=== PATIENT | female | born 1955 | race Caucasian/White ===

== ENCOUNTER 2025-02-02 06:41 | Inpatient (IN) | payer MEDICARE, OTHER, SELFPAY ==
[2025-02-01] VITALS (7 sets, daily range): BP systolic 111–156; BP diastolic 60–76; BMI 20.2; BMI 20.4
[2025-02-01 17:41] LABS: Hematocrit 35.7 % (37.0-47.0); Hemoglobin 11.4 g/dL (12.0-16.0); Mean Corp Hgb Conc. 31.9 g/dL (33.0-37.0); Mean Corpuscular Volume 92.2 fL (81.0-99.0); Nucleated Red Blood Cells % 0 %; Platelet Count 254 10^3/uL (130-400); Red Cell Dist. Width 14.0 % (11.5-14.5)
--- NOTE | 2025-02-01 17:52 | ED.GENMED ---
History of Present Illness
General
Chief Complaint: Urinary Symptoms
Source: patient and family
Exam Limitations: none
Time Seen by Provider: 02/01/25 17:17
Nursing documentation reviewed up to this point in time: agreed with
History of Present Illness
History of Present Illness:
Patient is a 7-year-old female with history of Alzheimer's Parkinson's bladder cancer, ataxia brought to the ER by son and family for evaluation. History obtained by son. Son reports patient has been complaining of burning with urination since
last night and today notices increasing confusion and weakness. Patient presents awake alert she is aware that she is in the hospital and does have a history of UTI. She denies any pain now.
Son reports she last had a UTI at the end of December but at that time was living on her own.
Past History
Social History
Living: with family
Employment: Employed
Phy Exam
General Physical Exam
General Presentation: no apparent distress
General age: appears stated age
General Skin: warm and dry
General Habitus: elderly
General Mental: alert
General Hydration: appears well hydrated
Cardiovascular Exam
Cardiovascular Exam: regular rate/rhythm, no murmur and normal peripheral pulses
Pulmonary Exam
Pulmonary Exam: lungs clear and no respiratory distress
Neurological Exam
Neurological Exam: alert and oriented x3
Musculoskeletal Exam
Musculoskeletal Exam: full ROM
Skin Exam
Skin Exam: normal color and warm/dry
Course
Orders/Labs/Results
Orders:
Orders
02/01/25 17:29
IV Insert/Care/Rem.- Treatment PRN
02/01/25 17:30
Complete Blood Count/With Diff Urgent
Comprehensive Metabolic Panel Urgent
02/01/25 17:51
Straight cath- Treatment ONCE
02/01/25 18:31
UA Reflex to Culture [Urinalysis Reflex To Culture] Urgent
Date Specimen was Collected: 02/01/25
Time Specimen was Collected: 17:59
Urine Microscopic Reflex Cult Urgent
Urine Culture Urgent
FRANKLYN Source: U
Specimen Description:
Date Specimen was Collected: 02/01/25
Time Specimen was Collected: 17:59
02/01/25 18:52
0.9% Sodium Chloride 1000 ml [Nss] 1,000 ml IV BOLUS
CefTRIAXone [Rocephin] 1,000 mg IV NOW STA
02/01/25 19:49
Admit/Transfer Patient As Directed
Co-Sign Provider:
Level of Care: Observation services
Assign to:: Medical/Surgical
Physician / Group: [facility]
Diagnosis: UTI, Weakness
PRN Pain Medication Management As Directed
May give lesser potent ordered pain med per pt: Yes
preference::
Protocol:: Medication orders for pain may be administered in a
manner that supports deferring to patient preference
when the pt is:
- Requesting an ordered lesser potent pain medication.
Least to most potent pain medications are defined
as: acetaminophen < NSAID < tramadol < opioids
(morphine, oxycodone, hydromorphone).
- Requesting a lesser dose of the same medication IF
ORDERED.
- Requesting a less intrusive route of administration
if both routes are prescribed by the provider (PO <
IV).
02/01/25 19:50
Code Status As Directed
Resuscitation Status: Full Code
Abnormal Lab Results
02/01/25 02/01/25
17:30 18:31
RBC 3.87 L 10^6/uL
(4.20-5.40)
Hgb 11.4 L g/dL
(12.0-16.0)
Hct 35.7 L %
(37.0-47.0)
MCHC 31.9 L g/dL
(33.0-37.0)
BUN 25 H mg/dl
(7-17)
Glucose 186 H mg/dl
(70-99)
Urine Ketones 1+ A
(Negative)
Ur Occult Blood Reflex 4+ A
(Negative)
Leukocyte Esterase Rfl 3+ A
(Negative)
Urine WBC (Reflex) >100 A /HPF
(0-5)
Urine Bacteria (Reflex) Moderate A
(Negative)
Urine Albumin (Reflex) 3+ A
(Neg - Trace)
02/01/25 17:30
02/01/25 17:30
Vital Signs
Initial and Last Documented VS:
Initial Vital Signs
Temp Pulse Resp BP Pulse Ox
97.4 F 86 18 116/68 98
02/01/25 16:50 02/01/25 16:50 02/01/25 16:50 02/01/25 16:50 02/01/25 16:50
Last Documented Vital Signs
Temp Pulse Resp BP Pulse Ox
97.4 F 61 24 117/65 99
02/01/25 16:50 02/01/25 18:45 02/01/25 18:45 02/01/25 18:00 02/01/25 18:45
MDM/Problems Addressed
Differential Diagnosis Includes:
Not limited to UTI, dehydration, worsening Parkinson's or dementia
MDM/Problems Addressed:
Patient is a 70-year-old female brought by family for UTI symptoms and weakness. She first mentioned dysuria to family last evening. She was very weak this morning. Patient was recently living at her own home but now living with family.
Patient presents awake alert in no acute distress however does have a UTI with greater than 100 white blood cells in urine, she is afebrile with a normal white count stable hemoglobin. She is mildly dry on exam and does have an elevated BUN of 25.
fluids ordered along with iv rocephin.
With UTI in the setting of worsening weakness and increasing confusion (with history of Parkinson's and dementia ) would recommend admission
Chronic conditions affecting care:
Parkinson's, dementia
*Pulse Oximetry
SaO2: 100
Oxygen Mode of Delivery: Room air
Patient hypoxic: no
*Critical Care Note
Total Time (30-74mins, 75-104mins- exclusive of procedures): Not Applicable
ED Attending Note
-
Portions of this chart may have been created with voice recognition software.� Occasional wrong word or��sound alike� substitutions may have occurred due to the inherent limitations of voice recognition software.
Discharge Plan
Departure
Patient Disposition: Admit
Date of Disposition: 02/01/25
Time of Disposition: 18:55
Admit to: Med/Surg
Admit to doctor: hospitalist
Presentation/result/management discussed w/ accepting MD/DO: Hospitalist
Patient with high blood pressure during this ER visit?: No
Condition: Fair
Covid-19: Not Applicable
Discharge Problem:
Acute UTI, Weakness
Prescriptions:
No Action
famotidine 40 mg tablet
40 mg PO DAILY
alendronate 70 mg tablet
70 mg PO ELIZALDE
Theragen Tablet
1 tab PO DAILY
acetaminophen 500 mg Tablet
500 mg PO DAILYPRN PRN (Reason: mild pain)
docusate sodium 100 mg Capsule
100 mg PO DAILYPRN PRN (Reason: constipation)
midodrine 2.5 mg tablet
2.5 mg PO TID
carbidopa-levodopa 25-100 mg tablet
3 tab PO TID
lamotrigine 100 mg tablet
100 mg PO DAILY
cranberry 500 mg Capsule
500 mg PO DAILY
Patient Comments:
patient is going to stop taking this because she thinks it masks the signs of UTI
escitalopram oxalate 5 mg tablet
5 mg PO DAILY
Patient Comments:
patient ran out of this about a week ago and is waiting for a refill from mail order.
Referrals:
Ivone Patel DO [Family Provider, Family Practice]
Interventions
Interventions:
*Risk Screen - Suicide Last Done: 02/01/25 16:57
*General Assessment Last Done: 02/01/25 17:34
*Neglect/Abuse Screening Last Done: 02/01/25 16:57
*ED- Fall Risk Assessment Last Done: 02/01/25 17:34
ED-Female Genitourinary Assessment Last Done: 02/01/25 17:34
Discharge Date and Time
Print Language: SERBIAN
[2025-02-01 17:55] LABS: ALT (SGPT) < 10 U/L (0-35); AST (SGOT) 15 U/L (14-36); Albumin 3.8 g/dl (3.5-5.0); Alkaline Phosphatase 55 U/L (38-126); Blood Urea Nitrogen 25 mg/dl (7-17); Calcium 9.4 mg/dl (8.4-10.2); Carbon Dioxide 28 mmol/L (22-30); Chloride 103 mmol/L (98-107); Estimated Creatinine Clearance 51 ml/min; Glucose 186 mg/dl (70-99); Potassium 3.8 mmol/L (3.5-5.1); Sodium 138 mmol/L (135-145); Total Protein 6.5 g/dl (6.3-8.2); eGFR > 60.00
[2025-02-01 18:40] LABS: Urine Character Cloudy (Clear)
[2025-02-01 18:46] LABS: Urine Red Blood Cell 0-2 /HPF (0-2); Urine Squamous Cell 0-2 /LPF (Few); Urine White Cell >100 /HPF (0-5)
[2025-02-01] MEDS: NSS 1000 IV ×2 (19:05→23:12)
[2025-02-01] MEDS: ROCEPHIN 1000 MG IV (19:05)
--- NOTE | 2025-02-01 19:52 | HPS.HSE ---
Family Physician
-
Family Physician: Ivone Patel
Chief Complaint
-
Weakness, Dysuria
History of Present Illness
Patient is a 70y F with PMH significant for Parkinson's disease who presents to ED complaining of dysuria and confusion / weakness. History obtained from patient and family at the bedside. Patient reported symptoms of dysuria yesterday evening.
This AM she was very confused and weak and unable to stand or walk unassisted. They initially presented to Urgent Care where urine dip was reportedly positive. They were referred to the ED for evaluation given her weakness and confusion.
Patient reports some lower abdominal / pelvic pressure or discomfort.
No N/V, fevers / chills.
Family states that she has had multiple UTIs over the past 2-3 months.
Medical History
Past Medical History
Past Medical History: Reports Other
Additional Past Medical History:
Parkinson's Disease
Dementia with Mood Disturbance
Bladder Cancer
Osteoporosis
Past Surgical History: Reports Other
Additional Past Surgical History:
TURBT
LASIK
Social History
Tobacco: Former Smoker (Quit smoking about 10 years ago. )
Alcohol: None
Drug: None
Family History
Family History: Not pertinent
Allergies / Home Medications
Allergies reflects when Allergies were last updated in [facility].
Home Medications with original date entered in [facility]
Allergy/Medication List:
Allergies
Allergy/AdvReac Type Severity Reaction Status Date / Time
No Known Allergies Allergy Verified 02/01/25 16:55
Home Medications
acetaminophen 500 mg tablet 500 mg PO DAILYPRN PRN mild pain 02/01/25
alendronate 70 mg tablet 70 mg PO ELIZALDE 02/01/25
carbidopa 25 mg-levodopa 100 mg tablet 3 tab PO TID 02/01/25
cranberry 500 mg capsule 500 mg PO DAILY 02/01/25
docusate sodium 100 mg capsule 100 mg PO DAILYPRN PRN constipation 02/01/25
escitalopram oxalate 5 mg tablet 5 mg PO DAILY 02/01/25
famotidine 40 mg tablet 40 mg PO DAILY 02/01/25
lamotrigine 100 mg tablet 100 mg PO DAILY 02/01/25
midodrine 2.5 mg tablet 2.5 mg PO TID 02/01/25
therapeutic multivitamin 1 tab PO DAILY 02/01/25
Review of Systems
-
History Source: Patient and Family
A 12 point ROS was completed and negative except as noted: Yes
Constitutional: Reports Fatigue; Denies Fever or Chills
Respiratory: Denies Cough or Trouble Breathing
Cardiac: Denies Chest Pain or Palpitations
Abdomen/GI: Reports Abdominal Pain; Denies Nausea, Vomiting or Diarrhea
: Reports Dysuria and Frequency; Denies Flank Pain or Bleeding
Musculoskeletal: Denies Joint Pain or Edema
Neurological: Reports Dizzy and Weakness; Denies Headache
Psych: Denies Depression or Anxiety
Physical Exam
Vital Signs
Vital Signs
Temp Pulse Resp BP Pulse Ox
97.4 F 61 24 117/65 99
02/01/25 16:50 02/01/25 18:45 02/01/25 18:45 02/01/25 18:00 02/01/25 18:45
Physical Exam
General: Other (70y F with slow speech / flat affect. Not in acute distress.)
HEENT: Other (Dry MM. Neck supple.)
Respiratory: Clear; No Wheezes, Rales or Rhonchi
Cardiac: S1/S2 and Regular Rhythm; No Murmur
GI: Soft, Non Distended and Normal Bowel Sounds
Genito-urinary: Other (Mild suprapubic tenderness. No CVAT.)
Musculoskeletal: No Clubbing, No Cyanosis and No Edema
Neuro: AO x 3
Laboratory Results
-
02/01/25 17:30
02/01/25 17:30
Laboratory Results
Total Bilirubin 0.5 mg/dl (0.2-1.3) 02/01/25 17:30
AST 15 U/L (14-36) 02/01/25 17:30
ALT < 10 U/L (0-35) 02/01/25 17:30
Alkaline Phosphatase 55 U/L (38-126) 02/01/25 17:30
Impression/Plan
-
A/P: Patient is a 70y F with PMH significant for Parkinson's disease who presents to ED complaining of dysuria and weakness.
UTI
Acute TME secondary to the above
- Observe overnight for further evaluation and treatment.
- IV ceftriaxone for now pending culture data.
- IVF support.
- Follow for clinical improvement.
- PT / OT evaluations in the AM.
Parkinson's Disease
- Stable. Continue current Sinemet dosing without changes.
- Continue midodrine for orthostatic hypotension.
- PT eval as noted above.
Dementia with Mood Disturbance
- Stable. Continue Lexapro and Lamictal.
Osteoporosis
- Hold Fosamax acutely (usually takes dose on Sundays)
DVT Prophylaxis: SCDs
Code Status: Full
[2025-02-01] MEDS: SINEMET 25-100 3 TABLET PO (23:12)
[2025-02-01] MEDS: VITAMIN C 500 MG PO (23:12)
--- NOTE | 2025-02-01 23:55 | PTCARENOTE ---
patient arrived on stretcher with her son at her side, patient awake and alert. Patient's orientation is good. Transfer from stretcher to bed done and skin check done right away.
[2025-02-02 05:59] LABS: Hematocrit 32.4 % (37.0-47.0); Hemoglobin 10.5 g/dL (12.0-16.0); Mean Corp Hgb Conc. 32.4 g/dL (33.0-37.0); Mean Corpuscular Volume 92.0 fL (81.0-99.0); Platelet Count 221 10^3/uL (130-400); Red Cell Dist. Width 13.9 % (11.5-14.5)
[2025-02-02 06:00] VITALS: BMI 19.9
[2025-02-02 06:24] LABS: Blood Urea Nitrogen 19 mg/dl (7-17); Calcium 8.6 mg/dl (8.4-10.2); Carbon Dioxide 26 mmol/L (22-30); Chloride 110 mmol/L (98-107); Estimated Creatinine Clearance 64 ml/min; Glucose 93 mg/dl (70-99); Potassium 4.0 mmol/L (3.5-5.1); Sodium 140 mmol/L (135-145); eGFR > 60.00
[2025-02-02 07:58] VITALS: BP 140/85
--- NOTE | 2025-02-02 08:56 | W.PN.HOSP.TC ---
Today's Communication/Plan
-
CT of abdomen/ pelvis
Bladder scan
PT/OT
Assessment / Plan
Assessment / Plan
Physical Exam
General: Other (70y F with slow speech / flat affect. Not in acute distress.)
HEENT: Other (no deformities, Neck supple.)
Respiratory: Clear; No Wheezes, Rales or Rhonchi
Cardiac: S1/S2 and Regular Rhythm; No Murmur
GI: Soft, Non Distended and Normal Bowel Sounds
Genito-urinary: No Le. No CVAT.
Musculoskeletal: No Clubbing, No Cyanosis and No Edema
Neuro: AO x 3
Psych: calm, no agitation
Patient is a 70y F with PMH significant for Parkinson's disease who presents to ED complaining of dysuria and weakness.
UTI
Dementia with Mood Disturbance
- Stable. Continue Lexapro and Lamictal.
Acute TME secondary to the above
Rule out underlying primary cognitive impairment/worsening dementia
She is doing better. No agitation. Seems to follow commands appropriately
Discussed with son. Patient was diagnosed with dementia. Primary neurologist Dr. Lovelace, She was treating her for ataxia and Parkinson disease but no specific treatment for dementia.
According to the son, history of staring/seizure. On Lamictal.
Ordered CAT scan of the head that showed progressive atrophy.
Son was concerned about worsening cognitive function and gait dysfunction last a few days. Will order MRI of brain.
Start the patient on aspirin.
# History of urinary tract infection/recurrent
Renal ultrasound is ordered, showing cyst/mass and right adrenal area. Moderate left pelvicalyceal dilation. Normal renal function. Will order a bladder scan
Discussed with patient and her son. Agreed to do a CAT scan with contrast.
Parkinson's Disease
- Stable. Continue current Sinemet dosing without changes.
- Continue midodrine for orthostatic hypotension will add holding parameters,.
- PT eval as noted above.
Osteoporosis
- Hold Fosamax acutely (usually takes dose on Sundays)
DVT Prophylaxis: SCDs
Code Status: Full
Total time spent to see the patient, examine the patient, review lab results and data, discuss treatment plan with patient, son, nursing staff around 55 minutes
Anticipated Discharge: > 48 hours
Subjective/Interval History
-
Date of Service: February 02, 2025
No pain issues
Objective Data
-
Labs:
Laboratory Results
02/02/25
04:14
WBC 5.9
Hgb 10.5 L
Hct 32.4 L
Plt Count 221
Sodium 140
Potassium 4.0
Chloride 110 H
Carbon Dioxide 26
BUN 19 H
Creatinine 0.7
Glucose 93
Calcium 8.6
Vital Signs:
Vital Signs
Temp Pulse Resp BP Pulse Ox
98.1 F 67 17 140/85 98
02/02/25 07:58 02/02/25 07:58 02/02/25 07:58 02/02/25 07:58 02/02/25 07:58
I&O
02/01/25 02/02/25 02/03/25
06:59 06:59 06:59
Intake Total 480 / 480
Balance 480 / 480
[2025-02-02] MEDS: LEXAPRO 5 MG PO (09:41)
[2025-02-02] MEDS: HIPREX 1 GRAM PO (09:41)
[2025-02-02] MEDS: PEPCID 40 MG PO (09:41)
[2025-02-02] MEDS: SINEMET 25-100 3 TABLET PO ×3 (09:42→21:07)
[2025-02-02] MEDS: LAMICTAL 100 MG PO (09:42)
[2025-02-02 11:23] VITALS: BP 123/63; BP 131/89; PULSE 69; O2SAT 96
[2025-02-02 11:24] VITALS: BP 123/63; BP 131/89; PULSE 69; O2SAT 96
[2025-02-02 13:08] VITALS: BP 154/81
[2025-02-02 15:22] VITALS: BP 119/78
[2025-02-02] MEDS: NSS 1000 IV (15:24)
--- NOTE | 2025-02-02 15:35 | CM ---
Spoke w/ patient's son, Vasquez. Initial assessment completed. Patient is a 70y F with PMH significant for Parkinson's disease who presents to ED complaining of dysuria and confusion / weakness.
Patient resides in a newly built in law suite attached to her son's 2 story split level home. Patient's suite is all one floor, 1 step to enter. Patient uses RW to ambulate, per Vasquez, patient is still a fall risk even w/ using the RW. Patient
needs assistance w/ ADLs. No SNF hx, current w/ OP PT at [place] every Monday. Patient has an aide twice a week through [facility]. Vasquez reports he is currently exploring other caregiver agencies that can be more flexible w/ assisting
patient twice a week in the morning preferably but will continue w/ current aide in the meantime.
Address, points of contact and insurance verified
PCP: Ivone Patel
Pharmacy: [facility]
Therapy assessed, rec OP therapy at d/c per son's request
Plan: Anticipate home w/ son, resume OP PT
[2025-02-02] MEDS: STERILE WATER FOR INJECTION 10 ML IV (17:37)
[2025-02-02] MEDS: ROCEPHIN 1000 MG IV (17:37)
--- NOTE | 2025-02-02 17:42 | PTCARENOTE ---
DR Merritt aware pt blood pressures being 140-150 systolic with midodrine ordered. stated to hold and she will put parameters in.
[2025-02-02 23:13] VITALS: BP 166/90
[2025-02-03] MEDS: NSS 1000 IV ×2 (00:43→09:21)
[2025-02-03] MEDS: OMNIPAQUE 50 ML PO (06:00)
[2025-02-03 06:50] VITALS: BMI 18.9
[2025-02-03 07:35] VITALS: BP 165/82
[2025-02-03 08:07] LABS: Hematocrit 38.8 % (37.0-47.0); Hemoglobin 12.8 g/dL (12.0-16.0); Mean Corp Hgb Conc. 33.0 g/dL (33.0-37.0); Mean Corpuscular Volume 91.3 fL (81.0-99.0); Platelet Count 280 10^3/uL (130-400); Red Cell Dist. Width 13.3 % (11.5-14.5)
[2025-02-03 08:36] LABS: Blood Urea Nitrogen 7 mg/dl (7-17); Calcium 9.2 mg/dl (8.4-10.2); Carbon Dioxide 25 mmol/L (22-30); Chloride 108 mmol/L (98-107); Estimated Creatinine Clearance 71 ml/min; Glucose 145 mg/dl (70-99); Potassium 4.2 mmol/L (3.5-5.1); Sodium 141 mmol/L (135-145); eGFR > 60.00
[2025-02-03] MEDS: HIPREX 1 GRAM PO (09:21)
[2025-02-03] MEDS: SINEMET 25-100 3 TABLET PO ×3 (09:21→21:24)
[2025-02-03] MEDS: LEXAPRO 5 MG PO (09:21)
[2025-02-03] MEDS: LAMICTAL 100 MG PO (09:41)
[2025-02-03] MEDS: PEPCID 40 MG PO (09:42)
[2025-02-03 09:57] VITALS: BMI 18.9
--- NOTE | 2025-02-03 14:02 | CM ---
Chart reviewed and plan is for home to son and Erin daughter in law's house when stable, plan is for home care to begin with PT/OT, nursing and aide. Son to hire caregivers in morning to assist patient with all am care. Patient's son would like
physical therapy to review his mother again.
Plan; Home with home care, MRI pending.
[2025-02-03 14:55] VITALS: BP 93/57
--- NOTE | 2025-02-03 15:24 | W.PN.HOSP.TC ---
Today's Communication/Plan
-
Assessment / Plan
Assessment / Plan
Physical Exam
General: No Apparent Distress, Comfortable and Conversant
HEENT: NormoCephalic, Moist mucous membranes, Atraumatic
Respiratory: Clear and Non Labored Respirations
Cardiac: S1/S2 and Regular Rhythm; No Rub or Gallop
GI: Soft, Non Tender, Non Distended and Normal Bowel Sounds
Musculoskeletal: No Edema, no deformity
: NO Le
Neuro: Awake, Alert, confused, nonfocal/grossly intact
Psych: Calm and cooperative
Patient is a 70y F with PMH significant for Parkinson's disease and bladder cancer who presents to ED complaining of dysuria and weakness.
UTI
Dementia with Mood Disturbance
- Stable. Continue Lexapro and Lamictal.
Acute TME secondary to the above, improving
History of urinary tract infection/recurrent
-Renal ultrasound is ordered, showing cyst/mass and right adrenal area. Moderate left pelvicalyceal dilation. Normal renal function.
- CT scan with contrast reveals what appears to be a benign right adrenal adenoma, does show significant cystitis and left hydroureter with possible bladder mass
- Urology consulted for further evaluation especially considering history of bladder cancer
Parkinson's Disease
- Stable. Continue current Sinemet dosing without changes.
- Continue midodrine for orthostatic hypotension will add holding parameters,.
- CT brain shows progressive atrophy, somewhat concerned about gait dysfunction and worsening cognition, continue aspirin, MRI brain pending
- PT eval as noted above.
Osteoporosis
- Hold Fosamax acutely (usually takes dose on Sundays)
DVT Prophylaxis: SCDs
Code Status: Full
Total time spent to see the patient, examine the patient, review lab results and data, discuss treatment plan with patient, son, nursing staff around 45 minutes
Anticipated Discharge: 24 - 48 hours
Subjective/Interval History
-
Date of Service: February 03, 2025
Patient was seen and examined at bedside this morning. She is awake and alert but significantly disoriented. Receiving antibiotics for urinary tract infection.
Objective Data
-
Labs:
Laboratory Results
02/03/25
07:37
WBC 7.1
Hgb 12.8 D
Hct 38.8
Plt Count 280 D
Sodium 141
Potassium 4.2
Chloride 108 H
Carbon Dioxide 25
BUN 7
Creatinine 0.6
Glucose 145 H
Calcium 9.2
Vital Signs:
Vital Signs
Temp Pulse Resp BP Pulse Ox
98.2 F 80 20 93/57 98
02/03/25 14:55 02/03/25 14:55 02/03/25 14:55 02/03/25 14:55 02/03/25 14:56
I&O
02/02/25 02/03/25 02/04/25
06:59 06:59 06:59
Intake Total 480 / 480 600 / 600 480 / 480
Balance 480 / 480 600 / 600 480 / 480
Review of Systems
-
Unable to obtain full review of systems at this time due to: Dementia
Physical Exam
-
General: No Apparent Distress
[2025-02-03] MEDS: ATIVAN 1 MG PO (16:48)
--- NOTE | 2025-02-03 17:00 | W.PN.URO.CBU ---
Today's Communication / Plan
-
npo wed for am
Assessment / Plan
-
left hydro no stones need to rule out uretral cancer vs high grde bladder pressure from parkinson Plan cysto left uretroscopy Plan on to allow healing of uti before instrumentation
Diagnosis
-
Date of Service: February 03, 2025
-
Patient Diagnosis:left hydro in pt with remote h/o bladder cancer none x 8 years and parkinsons
Post Op Day:
Subjective
-
feeling better
Objective
-
Vital Signs
Temp Pulse Resp BP Pulse Ox
98.2 F 80 20 93/57 98
02/03/25 14:55 02/03/25 14:55 02/03/25 14:55 02/03/25 14:55 02/03/25 14:56
Intake and Output
02/02/25 02/03/25 02/04/25
06:59 06:59 06:59
Intake Total 480 / 480 600 / 600 480 / 480
Balance 480 / 480 600 / 600 480 / 480
Intake:
Oral fluids 480 / 480 600 / 600 480 / 480
Other:
How many times incontinent 1
MODERATE amount urine
How many times incontinent 1 5 4
SATURATED amount urine
Laboratory Results
02/03/25 07:37
02/03/25 07:37
Review of Systems
-
: Frequency and Difficulty Voiding
Physical Exam
-
General - well developed, well nourished, no acute distress
Chest - clear bilaterally
Abdomen - soft, non-tender, positive bowel sounds, no CVAT, no incisional pain or distention
Genitalia - normal
Rectal - normal
Skin - warm & dry with no rash
Neuro - AOx3, no motor deficits
Extremities - no clubbing, no cyanosis, no edema
Incision - clean, dry
Dressing - clean, dry, intact
Care Review
Data Reviewed
Discussed with: Hospitalist and Nursing
CT Scan: Image Pers Reviewed
[2025-02-03] MEDS: STERILE WATER FOR INJECTION 10 ML IV (18:04)
[2025-02-03] MEDS: ROCEPHIN 1000 MG IV (18:05)
[2025-02-03 23:49] VITALS: BP 148/82
[2025-02-04 06:00] VITALS: BMI 19.6
[2025-02-04 07:20] VITALS: BP 95/58
--- NOTE | 2025-02-04 08:27 | W.PN.URO.CBU ---
Today's Communication / Plan
-
O ROOM 1 ST CASE MONDAY
Assessment / Plan
-
left hydro no stones need to rule out uretral cancer vs high grde bladder pressure from parkinson Plan cysto left uretroscopy Plan on to allow healing of uti before instrumentation
Diagnosis
-
Date of Service: February 04, 2025
-
Patient Diagnosis:
Post Op Day:
Patient Diagnosis:left hydro in pt with remote h/o bladder cancer none x 8 years and parkinsons
Post Op Day:
Subjective
-
FEELING BETTER NO LEFT COLIC
Objective
-
Vital Signs
Temp Pulse Resp BP Pulse Ox
97.4 F 65 16 148/82 94
02/03/25 23:49 02/03/25 23:49 02/03/25 23:49 02/03/25 23:49 02/03/25 23:49
Intake and Output
02/03/25 02/04/25 02/05/25
06:59 06:59 06:59
Intake Total 600 / 600 720 / 720
Balance 600 / 600 720 / 720
Intake:
Oral fluids 600 / 600 720 / 720
Other:
How many times incontinent 1
MODERATE amount urine
How many times incontinent 5 4
SATURATED amount urine
Laboratory Results
02/03/25 07:37
02/03/25 07:37
Review of Systems
-
: No Symptoms
Physical Exam
-
General - well developed, well nourished, no acute distress
Chest - clear bilaterally
Abdomen - soft, non-tender, positive bowel sounds, no CVAT, no incisional pain or distention
Genitalia - normal
Rectal - normal
Skin - warm & dry with no rash
Neuro - AOx3, no motor deficits
Extremities - no clubbing, no cyanosis, no edema
Incision - clean, dry
Dressing - clean, dry, intact
Care Review
Data Reviewed
Discussed with: Nursing
[2025-02-04] MEDS: HIPREX 1 GRAM PO (09:00)
[2025-02-04] MEDS: LEXAPRO 5 MG PO (09:00)
[2025-02-04] MEDS: SINEMET 25-100 3 TABLET PO ×3 (09:00→21:49)
[2025-02-04] MEDS: PEPCID 40 MG PO (09:05)
[2025-02-04] MEDS: LAMICTAL 100 MG PO (09:05)
[2025-02-04] MEDS: NSS 1000 IV (10:31)
--- NOTE | 2025-02-04 12:40 | CM ---
Chart reviewed and patient is for possible procedure on , will follow for discharge planning needs, will await updated physical therapy notes.
Plan; To follow with patient progress, patient to return to son's home when stable.
[2025-02-04 15:40] VITALS: BP 174/80
--- NOTE | 2025-02-04 16:44 | W.PN.HOSP.TC ---
Today's Communication/Plan
-
Assessment / Plan
Assessment / Plan
Physical Exam
General: No Apparent Distress, Comfortable and Conversant
HEENT: NormoCephalic, Moist mucous membranes, Atraumatic
Respiratory: Clear and Non Labored Respirations
Cardiac: S1/S2 and Regular Rhythm; No Rub or Gallop
GI: Soft, Non Tender, Non Distended and Normal Bowel Sounds
Musculoskeletal: No Edema, no deformity
: NO Le
Neuro: Awake, Alert, confused, nonfocal/grossly intact
Psych: Calm and cooperative
Patient is a 70y F with PMH significant for Parkinson's disease and bladder cancer who presents to ED complaining of dysuria and weakness.
History of urinary tract infection/recurrent
- Renal ultrasound showing cyst/mass and right adrenal area. Moderate left pelvicalyceal dilation. Normal renal function.
- CT scan with contrast reveals what appears to be a benign right adrenal adenoma, does show significant cystitis and left hydroureter with possible bladder mass
- Evaluated by urology considering history of bladder cancer, tentative plan for cystoscopy on 02/06
Dementia with Mood Disturbance
- Stable. Continue Lexapro and Lamictal.
Acute TME secondary to the above, improving
Parkinson's Disease
- Stable. Continue current Sinemet dosing without changes.
- Continue midodrine for orthostatic hypotension will add holding parameters,.
- CT brain shows progressive atrophy, somewhat concerned about gait dysfunction and worsening cognition, continue aspirin, MRI brain shows no acute changes
- PT recommending outpatient therapy
Osteoporosis
- Hold Fosamax acutely (usually takes dose on Sundays)
DVT Prophylaxis: SCDs
Code Status: Full
Total time spent to see the patient, examine the patient, review lab results and data, discuss treatment plan with patient, son, nursing staff around 45 minutes
Anticipated Discharge: > 48 hours
Subjective/Interval History
-
Date of Service: February 04, 2025
Patient was seen and examined at bedside this morning. Was much more lucid today than yesterday. Continuing antibiotics for urinary tract infection. Tentatively planning cystoscopy on for evaluation of possible recurrent bladder mass.
Objective Data
-
Vital Signs:
Vital Signs
Temp Pulse Resp BP Pulse Ox
98.4 F 73 18 174/80 95
02/04/25 15:40 02/04/25 15:40 02/04/25 15:40 02/04/25 15:40 02/04/25 15:40
I&O
02/03/25 02/04/25 02/05/25
06:59 06:59 06:59
Intake Total 600 / 600 720 / 720
Balance 600 / 600 720 / 720
Review of Systems
-
Unable to obtain full review of systems at this time due to: Dementia
Physical Exam
-
General: No Apparent Distress
[2025-02-04] MEDS: STERILE WATER FOR INJECTION 10 ML IV (17:35)
[2025-02-04] MEDS: ROCEPHIN 1000 MG IV (17:35)
[2025-02-04] MEDS: TYLENOL 650 MG PO (20:04)
[2025-02-04] MEDS: MELATONIN 5 MG PO (21:52)
[2025-02-04 23:19] VITALS: BP 99/52
[2025-02-05 07:30] VITALS: BP 148/86
[2025-02-05 07:46] LABS: Hematocrit 36.2 % (37.0-47.0); Hemoglobin 12.2 g/dL (12.0-16.0); Mean Corp Hgb Conc. 33.7 g/dL (33.0-37.0); Mean Corpuscular Volume 88.3 fL (81.0-99.0); Nucleated Red Blood Cells % 0 %; Platelet Count 262 10^3/uL (130-400); Red Cell Dist. Width 13.8 % (11.5-14.5)
[2025-02-05 08:05] LABS: INR 0.99; PT 13.6 Sec (11.4-14.6)
[2025-02-05 08:06] LABS: APTT 31.2 Sec (23.4-35.0)
[2025-02-05 08:10] LABS: Blood Urea Nitrogen 11 mg/dl (7-17); Calcium 8.7 mg/dl (8.4-10.2); Carbon Dioxide 26 mmol/L (22-30); Chloride 109 mmol/L (98-107); Estimated Creatinine Clearance 55 ml/min; Glucose 96 mg/dl (70-99); Magnesium 2.0 mg/dl (1.6-2.3); Potassium 3.8 mmol/L (3.5-5.1); Sodium 140 mmol/L (135-145); eGFR > 60.00
[2025-02-05] MEDS: HIPREX 1 GRAM PO (08:33)
[2025-02-05] MEDS: SINEMET 25-100 3 TABLET PO ×3 (08:33→21:11)
[2025-02-05] MEDS: PEPCID 40 MG PO (08:33)
[2025-02-05] MEDS: LAMICTAL 100 MG PO (08:34)
[2025-02-05] MEDS: LEXAPRO 5 MG PO (08:34)
[2025-02-05] MEDS: NSS 1000 IV (11:26)
--- NOTE | 2025-02-05 12:38 | W.PN.URO.CBU ---
Today's Communication / Plan
-
did preop comsented explianed side efects alt txs
Assessment / Plan
-
left hydro no stones need to rule out uretral cancer vs high grde bladder pressure from parkinson Plan cysto left uretroscopy Plan on to allow healing of uti before instrumentation
Diagnosis
-
Date of Service: February 05, 2025
-
Patient Diagnosis:
Post Op Day:
Patient Diagnosis:
Post Op Day:
Patient Diagnosis:left hydro in pt with remote h/o bladder cancer none x 8 years and parkinsons
Post Op Day:
Subjective
-
no gu sxs feels much better
Objective
-
Vital Signs
Temp Pulse Resp BP Pulse Ox
98.6 F 74 16 125/70 98
02/05/25 07:30 02/05/25 12:19 02/05/25 07:30 02/05/25 12:19 02/05/25 08:15
Intake and Output
02/04/25 02/05/25 02/06/25
06:59 06:59 06:59
Intake Total 720 / 720 600 / 600
Balance 720 / 720 600 / 600
Intake:
Oral fluids 720 / 720 600 / 600
Other:
Number of approximated MODERATE 2
amounts of urine
How many times incontinent 1 1
MODERATE amount urine
How many times incontinent 4 2
SATURATED amount urine
Laboratory Results
02/05/25 07:21
02/05/25 07:21
Review of Systems
-
: No Symptoms
Physical Exam
-
General - well developed, well nourished, no acute distress
Chest - clear bilaterally
Abdomen - soft, non-tender, positive bowel sounds, no CVAT, no incisional pain or distention
Genitalia - normal
Rectal - normal
Skin - warm & dry with no rash
Neuro - AOx3, no motor deficits
Extremities - no clubbing, no cyanosis, no edema
Incision - clean, dry
Dressing - clean, dry, intact
Counseling
-
1st case npo tonight hs
Care Review
Data Reviewed
Discussed with: Nursing
--- NOTE | 2025-02-05 14:26 | W.PN.HOSP.TC ---
Today's Communication/Plan
-
Assessment / Plan
Assessment / Plan
Physical Exam
General: No Apparent Distress, Comfortable and Conversant
HEENT: NormoCephalic, Moist mucous membranes, Atraumatic
Respiratory: Clear and Non Labored Respirations
Cardiac: S1/S2 and Regular Rhythm; No Rub or Gallop
GI: Soft, Non Tender, Non Distended and Normal Bowel Sounds
Musculoskeletal: No Edema, no deformity
: NO Le
Neuro: Awake, Alert, nonfocal/grossly intact
Psych: Calm and cooperative
Patient is a 70y F with PMH significant for Parkinson's disease and bladder cancer who presents to ED complaining of dysuria and weakness.
History of urinary tract infection/recurrent
- Renal ultrasound showing cyst/mass and right adrenal area. Moderate left pelvicalyceal dilation. Normal renal function.
- CT scan with contrast reveals what appears to be a benign right adrenal adenoma, does show significant cystitis and left hydroureter with possible bladder mass
- Evaluated by urology considering history of bladder cancer, planning cystoscopy tomorrow 02/06
Orthostatic hypotension:
- Suspect multifactorial etiology including Parkinson's disease and poor recent p.o. intake
- Continue IV fluids and midodrine
- Monitor orthostatic vital signs
Dementia with Mood Disturbance
- Stable. Continue Lexapro and Lamictal.
- Acute TME secondary to the above, improving
Parkinson's Disease
- Stable. Continue current Sinemet dosing without changes.
- Continue midodrine for orthostatic hypotension will add holding parameters,.
- CT brain shows progressive atrophy, somewhat concerned about gait dysfunction and worsening cognition, continue aspirin, MRI brain shows no acute changes
- PT recommending outpatient therapy
Osteoporosis
- Hold Fosamax acutely (usually takes dose on Sundays)
DVT Prophylaxis: SCDs
Code Status: Full
Total time spent to see the patient, examine the patient, review lab results and data, discuss treatment plan with patient, son, nursing staff around 40 minutes
Anticipated Discharge: 24 - 48 hours
Subjective/Interval History
-
Date of Service: February 05, 2025
Patient was seen and examined at bedside this morning. Had significant symptomatic hypotension this morning when attempting to ambulate. Vital signs normalized after laying back in bed. She reported feeling foggy this morning.
Objective Data
-
Labs:
Laboratory Results
02/05/25
07:21
WBC 6.0
Hgb 12.2
Hct 36.2 L
Plt Count 262
PT 13.6
INR 0.99
APTT 31.2
Sodium 140
Potassium 3.8
Chloride 109 H
Carbon Dioxide 26
BUN 11
Creatinine 0.8
Glucose 96
Calcium 8.7
Vital Signs:
Vital Signs
Temp Pulse Resp BP Pulse Ox
98.6 F 74 16 125/70 96
02/05/25 07:30 02/05/25 12:19 02/05/25 07:30 02/05/25 12:19 02/05/25 14:15
I&O
02/04/25 02/05/25 02/06/25
06:59 06:59 06:59
Intake Total 720 / 720 600 / 600
Balance 720 / 720 600 / 600
Review of Systems
-
Unable to obtain full review of systems at this time due to: Dementia
History Source: Patient
All other systems: Reviewed and negative
Neuro: Reports Other (Feeling foggy)
Physical Exam
-
General: No Apparent Distress
[2025-02-05 15:29] VITALS: BP 116/65; BP 137/71; BP 143/77; BP 152/69; PULSE 79; PULSE 81; PULSE 85; O2SAT 93
[2025-02-05 15:30] VITALS: BP 152/74
--- NOTE | 2025-02-05 15:42 | CM ---
Addendum entered by Swati Weathers 02/05/25 16:26:
[facility]
[phone]
Original Note:
document manager reviewed patient's chart and spoke with physical therapy and recommendation is for skilled placement, director of casework spoke with patient and patient's son, and he wants patient home to return to his house with patient's daughter in law
when stable. Patient's son is asking for home care from [facility], patient was going to outpatient therapies at [facility] prior to admission.
Plan; Home with [facility].
[2025-02-05] MEDS: ROCEPHIN 1000 MG IV (17:43)
[2025-02-05] MEDS: STERILE WATER FOR INJECTION 10 ML IV (17:43)
[2025-02-05] MEDS: TYLENOL 650 MG PO (20:04)
[2025-02-05] MEDS: MELATONIN 5 MG PO (21:11)
[2025-02-05 23:22] VITALS: BP 161/73
[2025-02-06] VITALS (16 sets, daily range): BP systolic 127–173; BP diastolic 68–93; BMI 19.2
--- NOTE | 2025-02-06 07:55 | W.SUR.POST ---
Surgical Immediate Post Op
Note
Pre Op Diagnosis: uti left hydro uretronephrosis
Post Op Diagnosis: rakel ureter probably refluxing on left no cancer no obstruction
Procedure Performed: left ureteroscopy left retrograde pyelogram
Primary Surgeon: christy
Secondary Surgeons:
Anesthesia: [facility]
Estimated Blood Loss: 1
Fluids:nss
Drains/Shunts:
Specimens/Cultures:
Doppler/Duplex/Angio (Y/N):
Complications: 0
Operative Findings: left megaureter
[2025-02-06] MEDS: SINEMET 25-100 3 TABLET PO ×3 (09:43→22:00)
[2025-02-06] MEDS: HIPREX 1 GRAM PO (09:43)
[2025-02-06] MEDS: LEXAPRO 5 MG PO (09:44)
[2025-02-06] MEDS: LAMICTAL 100 MG PO (09:45)
[2025-02-06] MEDS: PEPCID 40 MG PO (09:46)
--- NOTE | 2025-02-06 14:14 | CM ---
Patient is for discharge to home when stable, patient and family declined skilled placement, patient has been set up with [facility], patient's physician requested copy of disc which has been copied and placed in red folder on chart.
Plan: Home with [facility].
[facility]
[phone]
--- NOTE | 2025-02-06 15:02 | W.PN.HOSP.TC ---
Today's Communication/Plan
-
Assessment / Plan
Assessment / Plan
Physical Exam
General: No Apparent Distress, Comfortable and Conversant
HEENT: NormoCephalic, Moist mucous membranes, Atraumatic
Respiratory: Clear and Non Labored Respirations
Cardiac: S1/S2 and Regular Rhythm; No Rub or Gallop
GI: Soft, Non Tender, Non Distended and Normal Bowel Sounds
Musculoskeletal: No Edema, no deformity
: NO Le
Neuro: Awake, Alert, nonfocal/grossly intact
Psych: Calm and cooperative
Patient is a 70y F with PMH significant for Parkinson's disease and bladder cancer who presents to ED complaining of dysuria and weakness.
History of urinary tract infection/recurrent
- Renal ultrasound showing cyst/mass and right adrenal area. Moderate left pelvicalyceal dilation. Normal renal function.
- CT scan with contrast reveals what appears to be a benign right adrenal adenoma, does show significant cystitis and left hydroureter with possible bladder mass
- Underwent cystoscopy with urology this morning 02/06 with no evidence of recurrent malignancy, did find evidence of retrograde flow into the left ureter
- Continuing antibiotics to complete a 7-day course of recurrent infection, thereafter will treat with Macrodantin 100 mg daily indefinitely for suppressive therapy
- Will need ongoing outpatient urology follow-up
- Medically stable for discharge to home with home health
Orthostatic hypotension:
- Suspect multifactorial etiology including Parkinson's disease and poor recent p.o. intake
- Continue midodrine
- Monitor orthostatic vital signs
Dementia with Mood Disturbance
- Stable. Continue Lexapro and Lamictal.
- Acute TME secondary to the above, resolved
Parkinson's Disease
- Stable. Continue current Sinemet dosing without changes.
- Continue midodrine for orthostatic hypotension will add holding parameters,.
- CT brain shows progressive atrophy, somewhat concerned about gait dysfunction and worsening cognition, continue aspirin, MRI brain shows no acute changes
- PT recommending outpatient therapy
- Will need close outpatient follow-up with her primary neurologist
Osteoporosis
- Hold Fosamax acutely (usually takes dose on Sundays)
DVT Prophylaxis: SCDs
Code Status: Full
Total time spent to see the patient, examine the patient, review lab results and data, discuss treatment plan with patient, son, nursing staff around 40 minutes
Anticipated Discharge: 24 - 48 hours
Subjective/Interval History
-
Date of Service: February 06, 2025
Patient was seen and examined at bedside this morning. She had just returned from cystoscopy with no evidence of recurrent bladder cancer. She tolerated the procedure well.
Objective Data
-
Vital Signs:
Vital Signs
Temp Pulse Resp BP Pulse Ox
98.1 F 73 20 127/68 95
02/06/25 13:55 02/06/25 13:55 02/06/25 13:55 02/06/25 13:55 02/06/25 13:55
I&O
02/05/25 02/06/25 02/07/25
06:59 06:59 06:59
Intake Total 600 / 600 1880 / 1880 580 / 580
Balance 600 / 600 1880 / 1880 580 / 580
Review of Systems
-
Unable to obtain full review of systems at this time due to: Dementia
History Source: Patient
All other systems: Reviewed and negative
Physical Exam
-
General: No Apparent Distress
[2025-02-06] MEDS: ROCEPHIN 1000 MG IV (18:29)
[2025-02-06] MEDS: STERILE WATER FOR INJECTION 10 ML IV (18:30)
[2025-02-06] MEDS: ZYPREXA 2.5 MG PO (22:00)
[2025-02-06] MEDS: MELATONIN 5 MG PO (22:00)
[2025-02-07] VITALS (7 sets, daily range): BP systolic 86–169; BP diastolic 49–97; PULSE 66–77; BMI 19.2
--- NOTE | 2025-02-07 05:30 | PTCARENOTE ---
Pt making attempts to get OOB, pulling on IV tubing and SCD tubing. Pt is very confused and only oriented to herself occasionally. FASHION DIRECTOR [employer] PL[employer] SALES Denisha Angulo notified, order placed for Sarah chair. Pt sitting in Sarah chair at nurse's station, sitting
calmly. Water provided to pt.
[2025-02-07] MEDS: LAMICTAL 100 MG PO (09:12)
[2025-02-07] MEDS: HIPREX 1 GRAM PO (09:13)
[2025-02-07] MEDS: SINEMET 25-100 3 TABLET PO (09:13)
[2025-02-07] MEDS: LEXAPRO 5 MG PO (09:15)
[2025-02-07] MEDS: PEPCID 40 MG PO (09:15)
--- NOTE | 2025-02-07 12:11 | W.DCSUMMARY ---
Addendum entered and electronically signed by Alexander Jorge DO 02/07/25 15:17:
Family decided on discharge to SNF rather than to home. Bed has been arranged for her at [facility].
Original Note:
Discharge Summary
Discharge Data
Date of Admission: 02/02/25
Date of Discharge: 02/07/25
Total time spent discharging patient (in min): 45
-
Pending Results: No
Hospital Course
Ms. Baeza is a 70-year-old female with a medical history of Parkinson's disease and bladder cancer who presented with dysuria and weakness. She was also found to be encephalopathic. Urine studies, cultures, and imaging revealed acute cystitis
which has been a recurrent issue for her. She was treated with IV ceftriaxone with significant improvement in her symptoms. Imaging also revealed a benign right adrenal adenoma and left hydroureter possibly due to a bladder mass. She underwent
cystoscopy with urology on 02/06 which revealed no evidence of malignancy but did identify retrograde flow into the left ureter. She continued to clinically improve with antibiotics. She has been given a prescription for 2 more days of oral
antibiotics to complete a total 7-day course, thereafter she will be continued on Macrodantin 100 mg daily indefinitely for suppressive therapy. She will need close outpatient follow-up with urology. She had multiple episodes of orthostatic
hypotension during her hospitalization which improved with IV fluids and continuing her home midodrine regimen. Imaging of her brain showed no acute changes but did reveal progressive atrophy consistent with her Parkinson's disease and apparent
developing dementia. She will be given a prescription for low-dose Seroquel to be taken as needed at night for agitation. She will need close follow-up with her primary neurologist for ongoing evaluation and management of her progressive disease.
At time of hospital discharge she was medically stable.
General: No Apparent Distress, Comfortable and Conversant
HEENT: NormoCephalic, Moist mucous membranes, Atraumatic
Respiratory: Clear and Non Labored Respirations
Cardiac: S1/S2 and Regular Rhythm; No Rub or Gallop
GI: Soft, Non Tender, Non Distended and Normal Bowel Sounds
Musculoskeletal: No Edema, no deformity
: NO Le
Neuro: Awake, Alert, nonfocal/grossly intact
Psych: Calm and cooperative
Discharge Plan
-
Patient Disposition: Home with Home Care
Discharge Diagnosis/Procedures: Acute cystitis with acute metabolic encephalopathy
Activity: With assistance and As tolerated
Activity Restrictions/Additional Instructions:
Ms. Baeza is a 70-year-old female with a medical history of Parkinson's disease and bladder cancer who presented with dysuria and weakness. She was also found to be encephalopathic. Urine studies, cultures, and imaging revealed acute cystitis
which has been a recurrent issue for her. She was treated with IV ceftriaxone with significant improvement in her symptoms. Imaging also revealed a benign right adrenal adenoma and left hydroureter possibly due to a bladder mass. She underwent
cystoscopy with urology on 02/06 which revealed no evidence of malignancy but did identify retrograde flow into the left ureter. She continued to clinically improve with antibiotics. She has been given a prescription for 2 more days of oral
antibiotics to complete a total 7-day course, thereafter she will be continued on Macrodantin 100 mg daily indefinitely for suppressive therapy. She will need close outpatient follow-up with urology. She had multiple episodes of orthostatic
hypotension during her hospitalization which improved with IV fluids and continuing her home midodrine regimen. Imaging of her brain showed no acute changes but did reveal progressive atrophy consistent with her Parkinson's disease and apparent
developing dementia. She will be given a prescription for low-dose Seroquel to be taken as needed at night for agitation. She will need close follow-up with her primary neurologist for ongoing evaluation and management of her progressive disease.
At time of hospital discharge she was medically stable.
Referrals:
Arcadio Irving MD [Active, Urology]
Referral Note: call dr irving [phone] [facility] with his SPRAY DRIER OPERATOR Vilma Patel for discussion of uti and preventio charly have a refluxing left ureter that will cause uti
Ivone Patel, [Family Provider, Family Practice]
Prescriptions:
New
cefdinir 300 mg capsule
300 mg PO BID 2 Days Qty: 4 0RF
nitrofurantoin macrocrystal 100 mg capsule
100 mg PO DAILY 30 Days Qty: 30 0RF
quetiapine [Seroquel] 25 mg tablet
12.5 mg PO HS Qty: 30 0RF
Rx Instructions:
take an additional 12.5 mg daily as needed for agitation
Continued
famotidine 40 mg tablet
40 mg PO DAILY
alendronate 70 mg tablet
70 mg PO ELIZALDE
therapeutic multivitamin Tablet
1 tab PO DAILY
acetaminophen 500 mg Tablet
500 mg PO DAILYPRN PRN (Reason: mild pain)
docusate sodium 100 mg Capsule
100 mg PO DAILYPRN PRN (Reason: constipation)
midodrine 2.5 mg tablet
2.5 mg PO TID
carbidopa-levodopa 25-100 mg tablet
3 tab PO TID
lamotrigine 100 mg tablet
100 mg PO DAILY
cranberry 500 mg Capsule
500 mg PO DAILY
Patient Comments:
patient is going to stop taking this because she thinks it masks the signs of UTI
escitalopram oxalate 5 mg tablet
5 mg PO DAILY
Patient Comments:
patient ran out of this about a week ago and is waiting for a refill from mail order.
Discharge Orders:
Discharge Patient (As Directed); Ordered 02/07/25
Ordered By: Alexander Jorge
Discharge Date and Time
Print Language: MOHAWK
--- NOTE | 2025-02-07 15:36 | CM ---
Family now want skilled placement referral sent to [facility], and they have accepted patient, patient to transfer by w/c lamar today to [facility].
[facility]
Report [phone]
fax [phone]
--- NOTE | 2025-02-07 16:54 | W.PN.URO.CBU ---
Today's Communication / Plan
-
nhome otpaitent follow o]u
Assessment / Plan
-
left hydro no stones need to rule out uretral cancer vs high grde bladder pressure from parkinson Plan cysto left uretroscopy Plan on to allow healing of uti before instrumentation
Diagnosis
-
Date of Service: February 07, 2025
-
Patient Diagnosis:
Post Op Day:
Patient Diagnosis:
Post Op Day:
Patient Diagnosis:
Post Op Day:
Patient Diagnosis:left hydro in pt with remote h/o bladder cancer none x 8 years and parkinsons
Post Op Day:
Subjective
-
no complaints this am
Objective
-
Vital Signs
Temp Pulse Resp BP Pulse Ox
97.4 F 72 16 144/81 99
02/07/25 15:24 02/07/25 15:24 02/07/25 15:24 02/07/25 15:24 02/07/25 15:24
Intake and Output
02/06/25 02/07/25 02/08/25
06:59 06:59 06:59
Intake Total 1880 / 1880 1060 / 1060
Balance 1880 / 1880 1060 / 1060
Intake:
Oral fluids 880 / 880 960 / 960
IV fluids (Total) 1000 / 1000 100 / 100
normasol 100 / 100
Other:
Number of approximated MODERATE 2
amounts of urine
How many times incontinent 2 2
MODERATE amount urine
How many times incontinent 2
SATURATED amount urine
Laboratory Results
02/05/25 07:21
02/05/25 07:21
Review of Systems
-
: No Symptoms
Physical Exam
-
General - well developed, well nourished, no acute distress
Chest - clear bilaterally
Abdomen - soft, non-tender, positive bowel sounds, no CVAT, no incisional pain or distention
Genitalia - normal
Rectal - normal
Skin - warm & dry with no rash
Neuro - AOx3, no motor deficits
Extremities - no clubbing, no cyanosis, no edema
Incision - clean, dry
Dressing - clean, dry, intact
Care Review
Data Reviewed
Discussed with: Hospitalist
== END 2025-02-07 16:40 | DRG 689 ==
LOC: 4 WEST ACU 06:41
PROVIDERS: Internal Medicine; Nurse Practitioner; ADMITTING PHYSICIAN Hospitalist; ATTENDING PHYSICIAN Internal Medicine; CONSULT PHYSICIAN Specialist; EMERGENCY PHYSICIAN Emergency Medicine; FAMILY PHYSICIAN Family Medicine
PROC: 0TJB8ZZ Inspection of Bladder, Via Natural or Artificial Opening Endoscopic (ICD-10-PCS; 2025-02-06)
PROC: BT1F1ZZ Fluoroscopy of Left Kidney, Ureter and Bladder using Low Osmolar Contrast (ICD-10-PCS; 2025-02-06)
DX: N13.6 Pyonephrosis (principal); G92.8 Other toxic encephalopathy; F02.83 Dementia in other diseases classified elsewhere, unspecified severity, with mood disturbance; G20.A1 Parkinson's disease without dyskinesia, without mention of fluctuations; K21.9 Gastro-esophageal reflux disease without esophagitis; M81.0 Age-related osteoporosis without current pathological fracture; I95.1 Orthostatic hypotension; N30.20 Other chronic cystitis without hematuria; N28.82 Megaloureter; D35.01 Benign neoplasm of right adrenal gland; Z79.83 Long term (current) use of bisphosphonates; Z85.51 Personal history of malignant neoplasm of bladder; Z87.891 Personal history of nicotine dependence; Z79.899 Other long term (current) drug therapy
CPT/HCPCS: 51701; 70450; 70551; 71046; 74178; 74420; 76000; 76775; 80048; 80053; 81003; 81015; 83735; 84100; 84443; 85025; 85027; 85610; 85730; 87040; 87077; 87086; 87186; 93005; 96361; 96374; 97116; 97163; 97167; 97530; 97535; 99284; A4300; Q9967

== ENCOUNTER → 2025-02-10 09:49 | Outpatient (REF) | payer OTHER, MEDICARE, SELFPAY ==
[2025-02-10 12:15] LABS: Hematocrit 37.8 % (37.0-47.0); Hemoglobin 12.3 g/dL (12.0-16.0); Mean Corp Hgb Conc. 32.5 g/dL (33.0-37.0); Mean Corpuscular Volume 91.1 fL (81.0-99.0); Nucleated Red Blood Cells % 0 %; Platelet Count 257 10^3/uL (130-400); Red Cell Dist. Width 13.9 % (11.5-14.5)
[2025-02-10 12:45] LABS: Blood Urea Nitrogen 15 mg/dl (7-17); Calcium 9.1 mg/dl (8.4-10.2); Carbon Dioxide 27 mmol/L (22-30); Chloride 106 mmol/L (98-107); Glucose 96 mg/dl (70-99); Potassium 4.0 mmol/L (3.5-5.1); Sodium 139 mmol/L (135-145); eGFR > 60.00
== END ==
LOC: OLABP 09:49
PROVIDERS: ATTENDING PHYSICIAN Family Medicine
DX: I95.1 Orthostatic hypotension (principal); Z85.51 Personal history of malignant neoplasm of bladder; G92.8 Other toxic encephalopathy; N39.0 Urinary tract infection, site not specified; G20.A1 Parkinson's disease without dyskinesia, without mention of fluctuations; B96.1 Klebsiella pneumoniae [K. pneumoniae] as the cause of diseases classified elsewhere
CPT/HCPCS: 36415; 80048; 85025

== ENCOUNTER 2025-02-21 17:31 | Emergency (ER) | payer MEDICARE, OTHER, SELFPAY ==
[2025-02-21 17:38] VITALS: BP 171/85
[2025-02-21 18:12] LABS: Hematocrit 37.7 % (37.0-47.0); Hemoglobin 12.7 g/dL (12.0-16.0); Mean Corp Hgb Conc. 33.7 g/dL (33.0-37.0); Mean Corpuscular Volume 89.3 fL (81.0-99.0); Nucleated Red Blood Cells % 0 %; Platelet Count 269 10^3/uL (130-400); Red Cell Dist. Width 13.8 % (11.5-14.5)
[2025-02-21 18:28] LABS: ALT (SGPT) < 10 U/L (0-35); AST (SGOT) 17 U/L (14-36); Albumin 4.2 g/dl (3.5-5.0); Alkaline Phosphatase 74 U/L (38-126); Blood Urea Nitrogen 25 mg/dl (7-17); Calcium 9.9 mg/dl (8.4-10.2); Carbon Dioxide 29 mmol/L (22-30); Chloride 103 mmol/L (98-107); Glucose 101 mg/dl (70-99); Potassium 4.6 mmol/L (3.5-5.1); Sodium 139 mmol/L (135-145); Total Protein 7.3 g/dl (6.3-8.2); eGFR > 60.00
[2025-02-21 19:12] VITALS: BP 139/80
[2025-02-21 19:47] VITALS: BP 142/75
--- NOTE | 2025-02-21 20:05 | ED.GENMED ---
History of Present Illness
General
Chief Complaint: Blood Pressure Problem
Source: patient
Exam Limitations: none
Time Seen by Provider: 02/21/25 20:04
Nursing documentation reviewed up to this point in time: agreed with
History of Present Illness
History of Present Illness:
7-year-old female past medical history of Alzheimer's presenting to the emergency department with elevated blood pressure. Apparently took 2 doses of midodrine to the home health aide given his incorrectly blood pressure raised into the 190s but
asymptomatic throughout came to the ER for further assessment. She denies any chest pain shortness of breath numbness weakness or additional concerns otherwise.
Past History
Social History
Living: with family
Employment: Employed
Review of Systems
Review of Systems
Allergies reviewed?: Yes
All Other Systems: ROS reviewed and negative except as documented in HPI and ROS
Phy Exam
Physical Exam
Physical Exam:
GENERAL: Alert , in no apparent distress
EYE: pupils equal and reactive
NECK: Supple, no significant adenopathy.
ENT: o/p clr, mmm.
CARDIAC: Regular rate and rhythm .
LUNGS: Clear breath sounds bilaterally, no acute respiratory distress, no wheezes/rales/rhonchi
ABDOMEN: Soft, without focal tenderness, no r/g, no cvat
NEUROLOGICAL: Alert and oriented, no focal neuro deficits
SKIN: Warm and dry, skin intact.
MUSCULOSKELETAL: No edema, well perfused.
PSYCH: Normal and appropriate interaction.
Course
Orders/Labs/Results
Orders:
Orders
02/21/25 18:00
CMP [Comprehensive Metabolic Panel] Urgent
Complete Blood Count/With Diff Urgent
Abnormal Lab Results
02/21/25
18:00
Eosinophils % 6.5 H %
(0-6)
BUN 25 H mg/dl
(7-17)
Glucose 101 H mg/dl
(70-99)
02/21/25 18:00
02/21/25 18:00
Vital Signs
Initial and Last Documented VS:
Initial Vital Signs
Temp Pulse Resp BP Pulse Ox
97.4 F 65 15 171/85 97
02/21/25 17:38 02/21/25 17:38 02/21/25 17:38 02/21/25 17:38 02/21/25 17:38
Last Documented Vital Signs
Temp Pulse Resp BP Pulse Ox
97.4 F 67 18 142/75 98
02/21/25 17:38 02/21/25 19:47 02/21/25 19:47 02/21/25 19:47 02/21/25 19:47
MDM/Problems Addressed
MDM/Problems Addressed:
70-year-old female presenting to the emergency department today with concerns of elevated blood pressure that occurred at home after taking 20 doses of midodrine. Blood pressure here improving. Midodrine likely wearing off at this point. Blood
pressure in the 140s over 70s. Patient asymptomatic throughout stable for outpatient management. Advised for careful use of midodrine. Return precautions given.
*Pulse Oximetry
SaO2: 98
Oxygen Mode of Delivery: Room air
Patient hypoxic: no (98)
*Critical Care Note
Total Time (30-74mins, 75-104mins- exclusive of procedures): Not Applicable
ED Attending Note
-
Portions of this chart may have been created with voice recognition software.� Occasional wrong word or��sound alike� substitutions may have occurred due to the inherent limitations of voice recognition software.
Discharge Plan
Departure
Patient Disposition: Home (Routine Discharge)
Date of Disposition: 02/21/25
Time of Disposition: 20:07
Patient with high blood pressure during this ER visit?: Yes
Condition: Good
Covid-19: Not Applicable
Discharge Problem:
Elevated blood pressure reading
Instructions: BLOOD PRESSURE
Prescriptions:
No Action
famotidine 40 mg tablet
40 mg PO DAILY
alendronate 70 mg tablet
70 mg PO ELIZALDE
therapeutic multivitamin Tablet
1 tab PO DAILY
acetaminophen 500 mg Tablet
500 mg PO DAILYPRN PRN (Reason: mild pain)
docusate sodium 100 mg Capsule
100 mg PO DAILYPRN PRN (Reason: constipation)
midodrine 2.5 mg tablet
2.5 mg PO TID
carbidopa-levodopa 25-100 mg tablet
3 tab PO TID
lamotrigine 100 mg tablet
100 mg PO DAILY
cranberry 500 mg Capsule
500 mg PO DAILY
Patient Comments:
patient is going to stop taking this because she thinks it masks the signs of UTI
escitalopram oxalate 5 mg tablet
5 mg PO DAILY
Patient Comments:
patient ran out of this about a week ago and is waiting for a refill from mail order.
cefdinir 300 mg capsule
300 mg PO BID 2 Days Qty: 4 0RF
nitrofurantoin macrocrystal 100 mg capsule
100 mg PO DAILY 30 Days Qty: 30 0RF
quetiapine [Seroquel] 25 mg tablet
12.5 mg PO HS Qty: 30 0RF
Rx Instructions:
take an additional 12.5 mg daily as needed for agitation
Activity Restrictions/Additional Instructions:
You came to the emergency department today with concerns of elevated blood pressure. Here it improved. Please be careful with midodrine use in the future. Return for any worsening, new or concerning symptoms.
Discharge Date and Time
Print Language: MALAGASY
== END 2025-02-21 20:21 | disposition home or self-care (01) ==
LOC: EMR 17:31
PROVIDERS: Emergency Medicine; EMERGENCY PHYSICIAN Emergency Medicine; FAMILY PHYSICIAN Family Medicine
DX: R03.0 Elevated blood-pressure reading, without diagnosis of hypertension (principal); F02.80 Dementia in other diseases classified elsewhere, unspecified severity, without behavioral disturbance, psychotic disturbance, mood disturbance, and anxiety; G30.9 Alzheimer's disease, unspecified
CPT/HCPCS: 99283; 80053; 85025

== ENCOUNTER → 2025-02-25 11:15 | Outpatient (REF) | payer MEDICARE, OTHER, SELFPAY ==
--- NOTE | 2025-02-26 14:35 | EEG.RPT ---
Electroencephalogram Report
Recording
Date of EE02/25/25
Type of EEG: Routine
Length of EEG recordin minutes
Done with Video Recording: Yes
Patient Status: Outpatient
Recording Conditions: Awake and Drowsy
Hyperventilation Performed: No
Photic Stimulation Performed: Yes
Report
LESS THAN 1 HOUR EEG REPORT
LESS THAN 1 HOUR EEG INTERPRETATION:
Mildly abnormal EEG for age due to diffuse bihemispheric slowing
CLINICAL CORRELATION:
This study was suggestive of diffuse cortical dysfunction without focal abnormality. No seizures were recorded.
Clinical correlation is advised.
METHODS:
A 21 channel digitized electroencephalogram (EEG) was performed at the bedside. The 10/20 international system of electrode placement was used with ECG and lateral/vertical eye movements recorded. Persyst QEEG monitoring was performed.
QUALITY OF STUDY:
Fair�poor
ELECTROENCEPHALOGRAPHER IMPRESSION(S):
Background
There was a medium amplitude unorganized anterior-posterior voltage gradient of theta frequency
There were no significant asymmetries of background activity noted.
Sleep
Drowsiness present
Photic Stimulation
Failed to activate the record.
ECG
Normal sinus rhythm
== END ==
LOC: EEG 11:15
PROVIDERS: ATTENDING PHYSICIAN Psychiatry & Neurology Neurology; FAMILY PHYSICIAN Family Medicine
DX: R56.9 Unspecified convulsions (principal)
CPT/HCPCS: 95816

== ENCOUNTER 2025-03-27 07:54 | Inpatient (IN) | payer MEDICARE, OTHER, SELFPAY ==
[2025-03-25] VITALS (14 sets, daily range): BP systolic 121–153; BP diastolic 72–89; BMI 23.0
[2025-03-25 21:07] LABS: Hematocrit 38.9 % (37.0-47.0); Hemoglobin 12.9 g/dL (12.0-16.0); Mean Corp Hgb Conc. 33.2 g/dL (33.0-37.0); Mean Corpuscular Volume 90.0 fL (81.0-99.0); Nucleated Red Blood Cells % 0 %; Platelet Count 239 10^3/uL (130-400); Red Cell Dist. Width 13.1 % (11.5-14.5)
[2025-03-25 21:26] LABS: ALT (SGPT) < 10 U/L (0-35); AST (SGOT) 16 U/L (14-36); Albumin 4.2 g/dl (3.5-5.0); Alkaline Phosphatase 69 U/L (38-126); Blood Urea Nitrogen 23 mg/dl (7-17); Calcium 9.7 mg/dl (8.4-10.2); Carbon Dioxide 29 mmol/L (22-30); Chloride 101 mmol/L (98-107); Estimated Creatinine Clearance 42 ml/min; Glucose 106 mg/dl (70-99); Potassium 4.6 mmol/L (3.5-5.1); Sodium 136 mmol/L (135-145); Total Protein 7.1 g/dl (6.3-8.2); eGFR > 60.00
--- NOTE | 2025-03-25 23:30 | ED.GENMED ---
History of Present Illness
<Diya Wolf NP - Last Filed: 03/26/25 00:58>
General
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
Source: family and mcc
Exam Limitations: none
Time Seen by Provider: 03/25/25 22:08
Nursing documentation reviewed up to this point in time: agreed with
History of Present Illness
History of Present Illness:
Patient to ED from [place]. According to report, patient care provider at [place] found a clot of blood when changing her. Unsure of where blood was coming from so she was transported to ED for eval. She was admitted here in JANUARY with UTI. Imaging showed
left hydroureter. Cystoscoy completed to r/o mass ( hx bladder CA). NO malignancy identified. +retrograde flow into left ureter. SHe was discharged home after completing course of IV antibiotics and was instructed to f/u with urology outpatinet.
No issues until tonight
Past History
<Diya Wolf NP - Last Filed: 03/26/25 00:58>
Past History
ED Past Medical History: Cancer (hx bladder cancer), GERD, Psychiatric (anxiety, depression, early dementia) and Other (Parkinsons disease)
Social History
Living: with family
Employment: Employed
Review of Systems
<Diya Wolf NP - Last Filed: 03/26/25 00:58>
Review of Systems
Allergies reviewed?: Yes
All Other Systems: ROS reviewed and negative except as documented in HPI and ROS
Constitutional: Reports no symptoms
EENT: Reports no symptoms
Respiratory: Reports no symptoms
Cardiac: Reports no symptoms
ABD/GI: Reports abdominal pain (diffuse)
: Reports bleeding
Musculoskeletal: Reports no symptoms
Skin: Reports no symptoms
Neurological: Reports no symptoms
Psychiatric: Reports no symptoms
Phy Exam
<Diya Wolf NP - Last Filed: 03/26/25 00:58>
General Physical Exam
General Presentation: no apparent distress
General age: appears stated age
General Skin: warm and dry
General Habitus: elderly and frail
General Mental: alert
General Hydration: appears well hydrated
Cardiovascular Exam
Cardiovascular Exam: regular rate/rhythm
Pulmonary Exam
Pulmonary Exam: no respiratory distress and chest non tender
Gastrointestinal Exam
Gastrointestinal Exam: normal bowel sounds, soft, no organomegaly and non distended
Palpation: generalized: Moderate tenderness
Musculoskeletal Exam
Musculoskeletal Exam: full ROM and neuro vasc intact
Skin Exam
Skin Exam: normal color, warm/dry and no rash
Psychiatric Exam
Psychiatric Exam: normal mood/affect
Course
<Diya Wolf VIDEO COORDINATOR - Last Filed: 03/26/25 00:58>
Orders/Labs/Results
Orders:
Orders
03/25/25 20:39
IV Insert/Care/Rem.- Treatment PRN
Pulse Ox/spot Check [RESP] Urgent
Quantity: 1
Special Instructions: ON ROOM AIR
03/25/25 20:45
CMP [Comprehensive Metabolic Panel] Urgent
Complete Blood Count/With Diff Urgent
03/25/25 23:27
CT Abd/pelvis W Iv Cont Urgent
Comment:
Reason For Exam: hematuria, abd. pain
Urinalysis Reflex To Culture Urgent
Date Specimen was Collected: 03/25/25
Time Specimen was Collected: 23:23
Urine Microscopic Reflex Cult Urgent
Urine Culture Urgent
FRANKLYN Source: U
Specimen Description:
Date Specimen was Collected: 03/25/25
Time Specimen was Collected: 23:23
03/26/25 00:53
CBI- Treatment PRN
Solution: NSS
Irrigate to Clear?: Yes
03/26/25 01:00
Bladder Scan As Directed
Follow Bladder Retention/Intermittent Cath Algorithm?: Yes
PRN if no void in __ hours: 6
Frequency: Per Retention Algorithm
If Bladder Scan Result >: 400
then:: Straight cath
03/26/25 02:28
Admit/Transfer Patient As Directed
Co-Sign Provider:
Level of Care: Observation services
Assign to:: Medical/Surgical
Physician / Group: Artem
Diagnosis: Gross hematuria
PRN Pain Medication Management As Directed
May give lesser potent ordered pain med per pt: Yes
preference::
Protocol:: Medication orders for pain may be administered in a
manner that supports deferring to patient preference
when the pt is:
- Requesting an ordered lesser potent pain medication.
Least to most potent pain medications are defined
as: acetaminophen < NSAID < tramadol < opioids
(morphine, oxycodone, hydromorphone).
- Requesting a lesser dose of the same medication IF
ORDERED.
- Requesting a less intrusive route of administration
if both routes are prescribed by the provider (PO <
IV).
03/26/25 02:29
Code Status As Directed
Resuscitation Status: Full Code
03/26/25 02:37
Straight Cath As Directed
Frequency: Per Retention Algorithm
Additional Instructions: straight cath as needed per acute urinary retention algorithm for 24 hrs
Additional Instructions: for bladder scan greater than 400 mL
Abnormal Lab Results
03/25/25 03/25/25
20:45 23:27
BUN 23 H mg/dl
(7-17)
Glucose 106 H mg/dl
(70-99)
Ur Occult Blood Reflex 4+ A
(Negative)
Leukocyte Esterase Rfl 2+ A
(Negative)
Urine RBC >100 A /HPF
(0-2)
Urine Bacteria (Reflex) Few A
(Negative)
Urine Albumin (Reflex) 4+ A
(Neg - Trace)
03/25/25 20:45
03/25/25 20:45
Vital Signs
Initial and Last Documented VS:
Initial Vital Signs
Temp Pulse Resp BP Pulse Ox
98.5 F 64 24 141/78 96
03/25/25 20:10 03/25/25 20:10 03/25/25 20:10 03/25/25 20:10 03/25/25 20:10
Last Documented Vital Signs
Temp Pulse Resp BP Pulse Ox
98.5 F 66 19 164/79 94
03/25/25 20:10 03/26/25 02:11 03/26/25 02:11 03/26/25 02:11 03/26/25 00:15
<Jus Knight, DO - Last Filed: 03/26/25 03:09>
Orders/Labs/Results
Orders:
Orders
03/25/25 20:39
IV Insert/Care/Rem.- Treatment PRN
Pulse Ox/spot Check [RESP] Urgent
Quantity: 1
Special Instructions: ON ROOM AIR
03/25/25 20:45
CMP [Comprehensive Metabolic Panel] Urgent
Complete Blood Count/With Diff Urgent
03/25/25 23:27
CT Abd/pelvis W Iv Cont Urgent
Comment:
Reason For Exam: hematuria, abd. pain
Urinalysis Reflex To Culture Urgent
Date Specimen was Collected: 03/25/25
Time Specimen was Collected: 23:23
Urine Microscopic Reflex Cult Urgent
Urine Culture Urgent
FRANKLYN Source: U
Specimen Description:
Date Specimen was Collected: 03/25/25
Time Specimen was Collected: 23:23
03/26/25 00:53
CBI- Treatment PRN
Solution: NSS
Irrigate to Clear?: Yes
03/26/25 01:00
Bladder Scan As Directed
Follow Bladder Retention/Intermittent Cath Algorithm?: Yes
PRN if no void in __ hours: 6
Frequency: Per Retention Algorithm
If Bladder Scan Result >: 400
then:: Straight cath
03/26/25 02:28
Admit/Transfer Patient As Directed
Co-Sign Provider:
Level of Care: Observation services
Assign to:: Medical/Surgical
Physician / Group: Artem
Diagnosis: Gross hematuria
PRN Pain Medication Management As Directed
May give lesser potent ordered pain med per pt: Yes
preference::
Protocol:: Medication orders for pain may be administered in a
manner that supports deferring to patient preference
when the pt is:
- Requesting an ordered lesser potent pain medication.
Least to most potent pain medications are defined
as: acetaminophen < NSAID < tramadol < opioids
(morphine, oxycodone, hydromorphone).
- Requesting a lesser dose of the same medication IF
ORDERED.
- Requesting a less intrusive route of administration
if both routes are prescribed by the provider (PO <
IV).
03/26/25 02:29
Code Status As Directed
Resuscitation Status: Full Code
03/26/25 02:37
Straight Cath As Directed
Frequency: Per Retention Algorithm
Additional Instructions: straight cath as needed per acute urinary retention algorithm for 24 hrs
Additional Instructions: for bladder scan greater than 400 mL
Abnormal Lab Results
03/25/25 03/25/25
20:45 23:27
BUN 23 H mg/dl
(7-17)
Glucose 106 H mg/dl
(70-99)
Ur Occult Blood Reflex 4+ A
(Negative)
Leukocyte Esterase Rfl 2+ A
(Negative)
Urine RBC >100 A /HPF
(0-2)
Urine Bacteria (Reflex) Few A
(Negative)
Urine Albumin (Reflex) 4+ A
(Neg - Trace)
03/25/25 20:45
03/25/25 20:45
Vital Signs
Initial and Last Documented VS:
Initial Vital Signs
Temp Pulse Resp BP Pulse Ox
98.5 F 64 24 141/78 96
03/25/25 20:10 03/25/25 20:10 03/25/25 20:10 03/25/25 20:10 03/25/25 20:10
Last Documented Vital Signs
Temp Pulse Resp BP Pulse Ox
98.5 F 66 19 164/79 94
03/25/25 20:10 03/26/25 02:11 03/26/25 02:11 03/26/25 02:11 03/26/25 00:15
<Diya Wolf VIDEO COORDINATOR - Last Filed: 03/26/25 00:58>
*Pulse Oximetry
SaO2: 95
Oxygen Mode of Delivery: Room air
<Diya Wolf NP - Last Filed: 03/26/25 00:58>
Update Note
Update Note:
Patient to ED from [place] with concern for bleeding. Blood clot found by caregiver in underwear. Labs reviewed, no concerning findings. Straight cath US, +blood. Sent for CT of abd/pelvis, results are pending. CBI ordered WIll admit to hospitalist
service for hematuria. Dr. Knight to follow CT results.
ED Attending Note
<Diya Wolf NP - Last Filed: 03/26/25 00:58>
-
Portions of this chart may have been created with voice recognition software.� Occasional wrong word or��sound alike� substitutions may have occurred due to the inherent limitations of voice recognition software.
<Jus Knight, DO - Last Filed: 03/26/25 03:09>
ED Attending Note
Patient seen and examined by attending physician: Yes
ED Attending Note:
I have reviewed and agree with history and treatment plan by Diya Wolf. My exam revealed 70-year-old female in no acute distress, abdomen exam benign. Patient afebrile. Patient now voiding, will hold off on CBI. Plan for urology consult
via hospitalist.
Discharge Plan
Departure
Patient Disposition: Admit
Date of Disposition: 03/26/25
Time of Disposition: 00:50
Presentation/result/management discussed w/ accepting MD/DO: Hospitalist
Condition: Fair
Covid-19: Not Applicable
Discharge Problem:
Hematuria
Prescriptions:
No Action
famotidine 40 mg tablet
40 mg PO DAILY
alendronate 70 mg tablet
70 mg PO ELIZALDE
therapeutic multivitamin Tablet
1 tab PO DAILY
acetaminophen 500 mg Tablet
500 mg PO DAILYPRN PRN (Reason: mild pain)
carbidopa-levodopa 25-100 mg tablet
3 tab PO TID
lamotrigine 100 mg tablet
150 mg PO BID
escitalopram oxalate 5 mg tablet
5 mg PO DAILY
Patient Comments:
patient ran out of this about a week ago and is waiting for a refill from mail order.
quetiapine 25 mg Tablet
25 mg PO DAILY PRN (Reason: agitation or insomnia)
amantadine HCl 100 mg Capsule
100 mg PO BID
pantoprazole 20 mg Tablet,Delayed Release (Dr/Ec)
40 mg PO DAILY
enoxaparin 30 mg/0.3 mL Syringe
30 mg SC DAILY
melatonin 5 mg Tablet,Disintegrating
5 mg PO HS
quetiapine [Seroquel] 25 mg tablet
25 mg PO .BEFORE DINNER
Referrals:
Ivone Patel DO [Family Provider, Family Practice]
Interventions
Interventions:
*Risk Screen - Suicide Last Done: 03/25/25 20:10
*General Assessment Last Done: 03/25/25 20:10
*Neglect/Abuse Screening Last Done: 03/25/25 20:10
*ED- Fall Risk Assessment Last Done: 03/25/25 20:10
*ED COVID-19 Vaccine History Last Done: 03/25/25 20:10
ED-Female Genitourinary Assessment Last Done: 03/25/25 20:10
Discharge Date and Time
Print Language: SOUTH AFRICAN
[2025-03-25 23:42] LABS: Urine Character Bloody (Clear)
[2025-03-26] VITALS (10 sets, daily range): BP systolic 136–174; BP diastolic 59–97; BMI 18.8
[2025-03-26] LABS: Urine Red Blood Cell >100 /HPF (0-2); Urine Squamous Cell None seen /LPF (Few); Urine White Cell None Seen /HPF (0-5)
--- NOTE | 2025-03-26 00:57 | HPS.HSE ---
Family Physician
-
Family Physician: Ivone Patel
Chief Complaint
-
Hematuria
History of Present Illness
This is a 70-year-old female with past medical history significant for Parkinson's disease, history of bladder cancer coming in with episode of gross hematuria. She had a recent admission for dysuria weakness and found to have a urinary tract
infection with hypovolemia status post treatment with IV antibiotics and discharged on oral antibiotics, during hospitalization imaging revealed a right adrenal adenoma and a left hydroureter possibly due to a bladder mass for which she is status
post cystoscopy which revealed no evidence of malignancy but did show retrograde flow into the left ureter which according to urology was concerning for a microcurette likely due to resection of the ureteral orifice at the time of a bladder tumor
resection resulting in reflux.
Patient unable to provide history. According to chart she has not been having any recent instrumentation. She is on prophylaxis Eliquis but is not on any other thinners and does not take aspirin. She was able to complain to me of bilateral lower
quadrant discomfort without any back pain nausea or vomiting or diarrhea. However history is not reliable. According to records and nursing staff at the [facility] noticed blood dangling from the urinary orifice and I requested that she will come
to the emergency department for evaluation.
In the emergency department she was afebrile, blood pressure was 174/89 with a pulse of 74 and she was satting 94% on room air.
CBC was unremarkable with a hemoglobin of 12.9 and WBC of 6.6. Electrolytes were normal. BUN and creatinine were normal at 23 and 0.9 with a glucose of 106. UA shows hematuria without any other significant findings.
CT a/p w/ iv con-contrast - Lobulated bladder with moderate irregular bladder wall thickening, likely chronic neurogenic bladder, decreased but persistent mild left hydroureteronephrosis with urothelial thickening and enhancement of the left ureter
throughout however focally intense in the midportion. Findings may reflect chronic inflammation or urinary tract infection or neoplastic process.
Medical History
Past Medical History
Past Medical History: Reports Other
Additional Past Medical History:
Parkinson's Disease
Dementia with Mood Disturbance
Bladder Cancer
Osteoporosis
Past Surgical History: Reports Other
Additional Past Surgical History:
TURBT
LASIK
Social History
Tobacco: Former Smoker (Quit smoking about 10 years ago. )
Alcohol: None
Drug: None
Family History
Family History: Not pertinent
Allergies / Home Medications
Allergies reflects when Allergies were last updated in [email or web address].
Home Medications with original date entered in [email or web address]
Allergy/Medication List:
Allergies
Allergy/AdvReac Type Severity Reaction Status Date / Time
No Known Allergies Allergy Verified 02/01/25 16:55
Home Medications
acetaminophen 500 mg tablet 500 mg PO DAILYPRN PRN mild pain 02/01/25
alendronate 70 mg tablet 70 mg PO ELIZALDE OSTEOPEROSIS 02/01/25
carbidopa 25 mg-levodopa 100 mg tablet 3 tab PO TID Neurological Condition 02/01/25
escitalopram oxalate 5 mg tablet 5 mg PO DAILY Depression 02/01/25
famotidine 40 mg tablet 40 mg PO DAILY Gastrointestinal Issue 02/01/25
lamotrigine 100 mg tablet 150 mg PO BID Neurological Condition 02/01/25
therapeutic multivitamin 1 tab PO DAILY Supplement 02/01/25
amantadine HCl 100 mg capsule 100 mg PO BID 03/25/25
enoxaparin 30 mg/0.3 mL subcutaneous syringe 30 mg SC DAILY 03/25/25
melatonin 5 mg disintegrating tablet 5 mg PO HS 03/25/25
pantoprazole 20 mg tablet,delayed release 40 mg PO DAILY 03/25/25
quetiapine 25 mg tablet 25 mg PO DAILY PRN agitation or insomnia 03/25/25
quetiapine 25 mg tablet (Seroquel) 25 mg PO .BEFORE DINNER 03/25/25
Review of Systems
-
History Source: Patient and Retirement
Constitutional: Reports No Symptoms
EENT: Reports No Symptoms
Respiratory: Reports No Symptoms
Cardiac: Reports No Symptoms
Abdomen/GI: Reports Abdominal Pain
: Reports Bleeding
Musculoskeletal: Reports No Symptoms
Skin: Reports No Symptoms
Neurological: Reports No Symptoms
Endocrine: Reports No Symptoms
Hematologic/Lymphatic: Reports No Symptoms
Psych: Reports No Symptoms
Physical Exam
Vital Signs
Vital Signs
Temp Pulse Resp BP Pulse Ox
98.5 F 70 20 174/89 94
03/25/25 20:10 03/26/25 00:45 03/26/25 00:45 03/26/25 00:08 03/26/25 00:15
Physical Exam
General: No Apparent Distress, Comfortable and Other
HEENT: NormoCephalic, Moist mucous membranes, Atraumatic and PERRLA
Respiratory: Clear; No Wheezes, Rales or Rhonchi
Cardiac: S1/S2 and Regular Rhythm; No Murmur
GI: Soft, Non Tender, Non Distended and Normal Bowel Sounds
Rectal: Deferred by Provider
Genito-urinary: Bloody Urine and No costovertebral tender
Musculoskeletal: No Clubbing, No Cyanosis and No Edema
Neuro: Alert and Oriented (oriented to person and place only)
Hematologic/Lymphatic: No Lymphadenopathy
Psych: Calm
Laboratory Results
-
03/25/25 20:45
03/25/25 20:45
Laboratory Results
Total Bilirubin 0.4 mg/dl (0.2-1.3) 03/25/25 20:45
AST 16 U/L (14-36) 03/25/25 20:45
ALT < 10 U/L (0-35) 03/25/25 20:45
Alkaline Phosphatase 69 U/L (38-126) 03/25/25 20:45
Data Reviewed
-
CT Scan: Report Reviewed by me
Lab Data: Labs Reviewed by me
Old Records: Reviewed
Impression/Plan
-
IMPRESSION:
89-year-old female with history of bladder cancer in remission, Parkinson's and dementia, recent episode of cystitis status post cystoscopy showing retrograde flow into left ureter, no malignancy identified were nonconcerning with new onset of gross
hematuria. No history of stones. No signs of active infection at this time and renal function is stable without evidence of bladder obstruction. She has not been having any clots since being in the ED with gross hematuria.
PLAN:
- Admit to [facility] - No infection, obstruction, renal failure or significant blood loss.
� Follow-up CT of the abdomen pelvis
� gentle IV fluids for now
� Hold urinary catheter/CBI for now as voiding, without pelvic discomfort or obvious distension on imaging, bladder scan protocol to eval ongoing retention.
� Patient is prophylactic Lovenox, hold for now, SCDs
- trend h&H
- d/w urology and consulted to see in am
Parkinson's
� Continue B levodopa, amantadine
Dementia w/ mood disturbance
- continue lexapro
�Continue Seroquel
- continue lamotrigine
DVT prophylaxis SCDs
CODE STATUS Full Code
--- NOTE | 2025-03-26 02:19 | DOWNTIME ---
There was a [email or web address] Client Thread Trimmer Downtime on 03/26/2025 from 0100 to 03/26/2025 at 0215. Downtime documentation of patient's care, including medication administrations, has been reconciled in the electronic record per guidelines. Refer to the
patient's paper chart under the miscellaneous tab to see printed paper medication records and downtime forms.
--- NOTE | 2025-03-26 05:11 | PTCARENOTE ---
Patient received from ED via stretcher. Patient pulled over to bed, wheel chair at baseline. Patient denies any pain/discomfort. Patient noted to be forgetful, bed alarm intact. Call guzman within reach. Will continue to monitor.
[2025-03-26] MEDS: NSS 1000 IV ×2 (05:31→14:50)
[2025-03-26 07:22] LABS: Hematocrit 37.9 % (37.0-47.0); Hemoglobin 12.5 g/dL (12.0-16.0); Mean Corp Hgb Conc. 33.0 g/dL (33.0-37.0); Mean Corpuscular Volume 90.0 fL (81.0-99.0); Platelet Count 228 10^3/uL (130-400); Red Cell Dist. Width 13.2 % (11.5-14.5)
[2025-03-26 07:42] LABS: Blood Urea Nitrogen 18 mg/dl (7-17); Calcium 9.5 mg/dl (8.4-10.2); Carbon Dioxide 30 mmol/L (22-30); Chloride 104 mmol/L (98-107); Estimated Creatinine Clearance 53 ml/min; Glucose 95 mg/dl (70-99); Potassium 4.3 mmol/L (3.5-5.1); Sodium 139 mmol/L (135-145); eGFR > 60.00
[2025-03-26] MEDS: PROTONIX 40 MG PO (09:09)
[2025-03-26] MEDS: SINEMET 25-100 3 TABLET PO ×3 (09:09→21:17)
[2025-03-26] MEDS: PEPCID 40 MG PO (09:09)
[2025-03-26] MEDS: LEXAPRO 5 MG PO (09:10)
[2025-03-26] MEDS: SYMMETREL 100 MG PO ×2 (09:10→19:45)
[2025-03-26] MEDS: THERAGRAN 1 TABLET PO (09:10)
[2025-03-26] MEDS: LAMICTAL 150 MG PO ×2 (09:10→19:45)
--- NOTE | 2025-03-26 09:22 | W.PN.HOSP.TC ---
Today's Communication/Plan
-
Urology consult
Assessment / Plan
Assessment / Plan
Gen-awake, alert, NAD
HEENT-NC, AT, anicteric, clear oral mm
Neck-supple
CV-reg, no M, +S1/S2
Lungs-clear B/L
Abd-soft, NT, ND
Ext-no edema
Musculoskeletal-no cyanosis, clubbing
Skin-warm and dry
Neuro-grossly non-focal
Psych-calm, cooperative
Gross hematuria -asymptomatic. Possible hematuria exacerbated by anticoagulation with Lovenox.
She is not anemic. No evidence of UTI on urinalysis.
CT scan on admission shows hydronephrosis on the left side with dilated ureter to the level of the bladder. Irregular bladder wall thickening suggesting chronic cystitis but cannot rule out neoplasm.
I spoke with urology (Dr. Irving), plan on cystoscopy tomorrow. N.p.o. after midnight.
Parkinson's disease -stable.
Dementia with mood disturbance
History of bladder cancer -details unknown.
Osteoporosis
Full code
Anticipated Discharge: Within 24 hours
Subjective/Interval History
-
Date of Service: March 26, 2025
Patient seen and examined. Complaining of hematuria, denies pain or other symptoms.
Objective Data
-
Labs:
Laboratory Results
03/25/25 03/26/25
20:45 06:45
WBC 7.3
Hgb 12.5
Hct 37.9
Plt Count 228
Sodium 136 139
Potassium 4.6 4.3
Chloride 101 104
Carbon Dioxide 29 30
BUN 23 H 18 H
Creatinine 0.9 0.8
Glucose 106 H 95
Calcium 9.7 9.5
Total Bilirubin 0.4
AST 16
ALT < 10
Alkaline Phosphatase 69
Vital Signs:
Vital Signs
Temp Pulse Resp BP Pulse Ox
99.3 F 75 16 136/81 96
03/26/25 07:32 03/26/25 07:32 03/26/25 07:32 03/26/25 07:32 03/26/25 07:32
Review of Systems
-
Unable to obtain full review of systems at this time due to: Dementia
History Source: Patient
All other systems: Reviewed and negative
--- NOTE | 2025-03-26 09:31 | W.PN.URO.CBU ---
Today's Communication / Plan
-
if in patient will do in op room am npo at hs
Assessment / Plan
-
pt will need cysto for hematuria and abnormal ct scan will place on op schedule tomorrow am or if pt. prefers to do as an outpatient
Diagnosis
-
Date of Service: March 26, 2025
-
Patient Diagnosis: remote h/o bladder cancer and neurogenic bladder with utis Now hematuria on lovenox no uti Ct scan reveals assymetric swelling cannot r/out neoplastic process
Post Op Day:
Subjective
-
less hematuria no dysuria
Objective
-
Vital Signs
Temp Pulse Resp BP Pulse Ox
99.3 F 75 16 136/81 96
03/26/25 07:32 03/26/25 07:32 03/26/25 07:32 03/26/25 07:32 03/26/25 07:32
Intake and Output
03/25/25 03/26/25 03/27/25
06:59 06:59 06:59
Other:
How many times incontinent 2
SATURATED amount urine
Laboratory Results
03/26/25 06:45
03/26/25 06:45
Review of Systems
-
: Dark Urine
Physical Exam
-
General - well developed, well nourished, no acute distress
Chest - clear bilaterally
Abdomen - soft, non-tender, positive bowel sounds, no CVAT, no incisional pain or distention
Genitalia - normal
Rectal - normal
Skin - warm & dry with no rash
Neuro - AOx3, no motor deficits
Extremities - no clubbing, no cyanosis, no edema
Incision - clean, dry
Dressing - clean, dry, intact
Care Review
Data Reviewed
Discussed with: Hospitalist and Nursing
CT Scan: Image Pers Reviewed
--- NOTE | 2025-03-26 13:33 | CM ---
Patient seen at bedside
IA completed from Enrrique Ovalle
Dx; gross hematuria
urology consult
pmh: parkinsons, dementa
Patient resides at [facility] ([phone] nurses station)
LM with lead nurse Aide Bustillos [phone]
PLOF: per enrrique Ovalle patient was using a wheelchair
DME: Wheelchair, walker
no vn/has been to outpatient
PCP: Ivone Patel, in process of transferring to [facility] PCP
Pharmacy: [facility]
PLAN: [facility] when stable
[2025-03-26] MEDS: SEROQUEL 25 MG PO (16:06)
[2025-03-26] MEDS: MELATONIN 5 MG PO (21:17)
--- NOTE | 2025-03-27 | PTCARENOTE ---
Patient with hx of dementia and behavioral disturbances. Patient refused 2300 vital signs, intermittently aggressive and uncooperative with staff, ripping off gown and at medical equipment, grabbing at/towards staff. x2-3 staff members to assist
with hygiene care and repositioning. Care ongoing.
[2025-03-27] MEDS: NSS 1000 IV (02:17)
--- NOTE | 2025-03-27 02:50 | W.PN.UPDATE ---
Update Note
Progress Note Update
PT extremely agitated, attempting to climb oob, and ripping off equipment. Becoming combative with staff. RN attempted prn seroquel but pt refused. Will try low dose zyprexa IM x1.
--- NOTE | 2025-03-27 03:00 | PTCARENOTE ---
Patient with frequent attempts to get OOB and remains unable to redirect at this time, patient became aggressive with staff attempting to hit and grab. Attempted PRN PO seroquel as per order but patient threw medication across the bed. DESIGN SPECIALIST made
aware and order placed for x1 dose of IM zyprexa, see MAR. B/L soft wrist restraints applied, see worklist. Care ongoing.
[2025-03-27] MEDS: ZYPREXA 2.5 MG IM (03:02)
[2025-03-27 07:00] VITALS: BP 137/91
--- NOTE | 2025-03-27 08:37 | W.PN.HOSP.TC ---
Addendum entered and electronically signed by Dariusz Omalley DO 03/27/25 10:56:
Spoke with urology, okay to discharge today. No malignancy noted on cystoscopy. Inflamed bladder noted, recommend outpatient follow-up. Short course of antibiotics.
Updated nursing and case management.
I left a voicemail for patient's son to call me back for an update.
Original Note:
Today's Communication/Plan
-
Await cystoscopy
Assessment / Plan
Assessment / Plan
Gen-awake, alert, NAD
HEENT-NC, AT, anicteric, clear oral mm
Neck-supple
CV-reg, no M, +S1/S2
Lungs-clear B/L
Abd-soft, NT, ND
Ext-no edema
Musculoskeletal-no cyanosis, clubbing
Skin-warm and dry
Neuro-grossly non-focal
Psych-calm, cooperative
Delirium -due to underlying dementia with agitation, hospital-acquired delirium, in the setting of underlying dementia, change in scenery. Required intramuscular olanzapine last night for agitation.
Gross hematuria -asymptomatic. Possible hematuria exacerbated by anticoagulation with Lovenox. Unclear why she is on low-dose Lovenox in her facility.
She is not anemic. No evidence of UTI on urinalysis.
CT scan on admission shows hydronephrosis on the left side with dilated ureter to the level of the bladder. Irregular bladder wall thickening suggesting chronic cystitis but cannot rule out neoplasm.
Urology plans on cystoscopy today. Currently NPO.
Parkinson's disease -stable.
Dementia with mood disturbance
History of bladder cancer -details unknown.
Osteoporosis
Full code
Dispo -potential discharge later today after cystoscopy if okay with urology. Outpatient follow-up.
Anticipated Discharge: Today
Subjective/Interval History
-
Date of Service: March 27, 2025
Patient seen and examined. Confused. No complaints. Events overnight noted.
Objective Data
-
Vital Signs:
Vital Signs
Temp Pulse Resp BP Pulse Ox
98.2 F 86 19 137/91 96
03/27/25 07:00 03/27/25 07:00 03/27/25 07:00 03/27/25 07:00 03/27/25 07:00
I&O
03/26/25 03/27/25 03/28/25
06:59 06:59 06:59
Intake Total 720 / 720
Balance 720 / 720
Review of Systems
-
Unable to obtain full review of systems at this time due to: Dementia
History Source: Patient
All other systems: Reviewed and negative
[2025-03-27] MEDS: PEPCID 20 MG PO (09:02)
[2025-03-27] MEDS: SINEMET 25-100 3 TABLET PO (09:02)
[2025-03-27] MEDS: PROTONIX 40 MG PO (09:02)
[2025-03-27] MEDS: LEXAPRO 5 MG PO (09:03)
[2025-03-27] MEDS: LAMICTAL 150 MG PO (09:03)
[2025-03-27] MEDS: SYMMETREL 100 MG PO (09:03)
[2025-03-27] MEDS: THERAGRAN 1 TABLET PO (09:05)
[2025-03-27] MEDS: PEPCID PO (09:08)
[2025-03-27 10:50] VITALS: BP 140/70
--- NOTE | 2025-03-27 10:52 | W.SUR.POST ---
Surgical Immediate Post Op
Note
Pre Op Diagnosishematuria :
Post Op Diagnosis:chronically inflamed bladder no cancer left reflux hydronrpr=[hrosus
Procedure Performed: left uretroscopy rgp and cystoscopy
Primary Surgeon: christy
Secondary Surgeons:
Anesthesia: katin general
Estimated Blood Loss: 1cc
Fluids: nss
Drains/Shunts: 0
Specimens/Cultures:
Doppler/Duplex/Angio (Y/N): 0
Complications: 0
Operative Findings:
chronic inflammation left hydroi no cancer
[2025-03-27 11:00] VITALS: BP 145/68
--- NOTE | 2025-03-27 11:07 | W.DS.TRANS ---
DC Summary - Network Strategist
-
Discharge Instructions:
Discharge Diagnosis/Procedures Hematuria
Diet Regular
Activity With assistance
Driving Restrictions No driving
Bathing Restrictions None
Instructions:
Stand-Alone Forms:
Changes to Home Medications: No
Discharge Medications:
DC Medications w/original date entered in [facility]
acetaminophen 500 mg tablet 500 mg PO DAILYPRN PRN mild pain 02/01/25
alendronate 70 mg tablet 70 mg PO ELIZALDE OSTEOPEROSIS 02/01/25
carbidopa 25 mg-levodopa 100 mg tablet 3 tab PO TID Neurological Condition 02/01/25
escitalopram oxalate 5 mg tablet 5 mg PO DAILY Depression 02/01/25
lamotrigine 100 mg tablet 150 mg PO BID Neurological Condition 02/01/25
therapeutic multivitamin 1 tab PO DAILY Supplement 02/01/25
amantadine HCl 100 mg capsule 100 mg PO BID Neurological Condition 03/25/25
enoxaparin 30 mg/0.3 mL subcutaneous syringe 30 mg SC DAILY Blood Clot Prevention/Tx 03/25/25
melatonin 5 mg disintegrating tablet 5 mg PO HS Sleep 03/25/25
pantoprazole 20 mg tablet,delayed release 40 mg PO DAILY Gastrointestinal Issue 03/25/25
quetiapine 25 mg tablet 25 mg PO DAILY PRN agitation or insomnia 03/25/25
quetiapine 25 mg tablet (Seroquel) 25 mg PO .BEFORE DINNER Mental Health/Anxiety 03/25/25
cefdinir 300 mg capsule 300 mg PO BID #10 caps 03/27/25
famotidine 20 mg tablet 20 mg PO DAILY #0 tabs 03/27/25
Home Medication Changes
Pending Results: No
[2025-03-27 11:16] VITALS: BP 135/74
[2025-03-27 11:30] VITALS: BP 136/68
--- NOTE | 2025-03-27 12:13 | CM ---
Addendum entered by Savita Lopez 03/27/25 13:15:
2:30pm transport set-aVsquez notified
LM for Aide Bustillos lead nurse
Original Note:
TT from UR LOC change to inpatient-IMM explained & in chart
s/p left uretroscopy rgp and cystoscopy
spoke with son Vasquez discharged
resides at [facility] ([phone] nurses station)
spoke with Aide Bustillos nurse -[phone]-ok to return
PLAN: [facility]
Report #: [phone] nurses station
fax #: [phone]
transportation form on chart
[2025-03-27 12:30] VITALS: BP 135/90
== END 2025-03-27 14:54 | disposition home or self-care (01) | DRG 690 ==
LOC: 3 WEST ACU 07:54
PROVIDERS: Nurse Practitioner; ADMITTING PHYSICIAN Internal Medicine; ATTENDING PHYSICIAN Hospitalist; EMERGENCY PHYSICIAN Emergency Medicine; FAMILY PHYSICIAN Family Medicine; OTHER PHYSICIAN Specialist
PROC: BT1F1ZZ Fluoroscopy of Left Kidney, Ureter and Bladder using Low Osmolar Contrast (ICD-10-PCS; 2025-03-27)
DX: N30.21 Other chronic cystitis with hematuria (principal); F02.811 Dementia in other diseases classified elsewhere, unspecified severity, with agitation; N13.30 Unspecified hydronephrosis; G20.A1 Parkinson's disease without dyskinesia, without mention of fluctuations; Z85.51 Personal history of malignant neoplasm of bladder; M81.0 Age-related osteoporosis without current pathological fracture; N31.9 Neuromuscular dysfunction of bladder, unspecified; Z87.891 Personal history of nicotine dependence; F32.A Depression, unspecified; F41.9 Anxiety disorder, unspecified
CPT/HCPCS: 51701; 51798; 74177; 74420; 76000; 80048; 80053; 81003; 81015; 85025; 85027; 87070; 87077; 87086; 94760; 99285; A4300; J2358; Q9967

== ENCOUNTER 2025-04-26 22:05 | Inpatient (IN) | payer MEDICARE, OTHER, SELFPAY ==
[2025-04-26 19:02] VITALS: BP 127/71
[2025-04-26 19:11] VITALS: BP 127/71; BMI 18.3
[2025-04-26 19:36] LABS: Hematocrit 37.5 % (37.0-47.0); Hemoglobin 11.9 g/dL (12.0-16.0); Mean Corp Hgb Conc. 31.7 g/dL (33.0-37.0); Mean Corpuscular Volume 92.4 fL (81.0-99.0); Nucleated Red Blood Cells % 0 %; Platelet Count 339 10^3/uL (130-400); Red Cell Dist. Width 13.6 % (11.5-14.5)
--- NOTE | 2025-04-26 19:39 | ED.GENMED ---
History of Present Illness
General
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
Source: patient and family (son at bedside)
Exam Limitations: altered mental status
Time Seen by Provider: 04/26/25 19:22
History of Present Illness
History of Present Illness:
70 yo female w hx of dementia, Parkinson's, bladder CA, chronic hematuria, depression/anxiety presents from [facility] for change in mental status, lethargy, not eating, speaking incoherently only in whispers. Son at bedside states this is a definite
change from her baseline. Pt is unable to state why she is here. She does say she's at '[facility].' She denies headache, CP, trouble breathing. Denies abdominal pain or pain in arms or legs.
Son states she is NOT here for vaginal/urethral bleeding as this is chronic and a separate issue.
Admitted 03/26-03/27 for this bleeding, had a cystoscopy/L ureteroscopy: finding of chronically inflamed bladder w/o malignancy and out pt f/u recommended.
Past History
Past History
ED Past Medical History: Cancer (hx bladder cancer, no malignancy noted on cystoscopy on 03/26/25), GERD, Psychiatric (anxiety, depression, early dementia) and Other (Parkinsons disease)
Social History
Tobacco: Non-smoker
Alcohol: None
Personal:
Living: [facility]
Review of Systems
Review of Systems
Allergies reviewed?: Yes
Unable to obtain full review of systems at this time due to: dementia
Other source history: [facility] and ambulance crew
All Other Systems: ROS reviewed and negative except as documented in HPI and ROS
Constitutional: Reports fever and fatigue
Respiratory: Denies trouble breathing
Cardiac: Denies chest pain or syncope
ABD/GI: Reports anorexia; Denies abdominal pain, nausea, vomiting or diarrhea
Musculoskeletal: Denies edema
Neurological: Denies headache
Phy Exam
Physical Exam
Physical Exam:
GENERAL: No acute distress. Lethargic, oriented x 2.
CONSTITUTIONAL: Temperature 102.3 rectally for this examiner
EYES: clear, conjunctivae normal
ENMT: Dry mucus membranes, Pharynx nl
RESPIRATORY: Regular respirations, nonlabored, lungs clear.
CARDIOVASCULAR: Regular rate and rhythm, no murmurs, no rubs.
GI: Soft, nontender, normal BS
MUSCULOSKELETAL: Moves with ease. Well perfused. No edema
SKIN: Warm, dry, pale
PSYCH: Depressed mood and affect. Well kept, follows commands appropriately
NEUROLOGIC: Awake, lethargic and oriented to place and name. Speaking in a whisper but coherently. Moving all extremities well, strength equal throughout. No focal neurological deficits
Course
Orders/Labs/Results
Orders:
Orders
04/26/25 Breakfast
Regular
At Your Request: Non-Participating
04/26/25 19:25
Type And Crossmatch [Type+Screen] Urgent
Complete Blood Count/With Diff Urgent
Comprehensive Metabolic Panel Urgent
04/26/25 19:34
Acetaminophen [Tylenol/Feverall] 650 mg RECTAL NOW STA
04/26/25 19:36
0.9% Sodium Chloride 1000 ml [Nss] 1,000 ml IV BOLUS
04/26/25 19:41
CR Chest - 2 Views Urgent
Comment:
Reason For Exam: change in mental state, fever
04/26/25 19:54
COVID-19 Antigen Urgent
Source: Nasal Swab
Blood Culture Q30M
FRANK[place]N Source: Blood/Venous
Specimen Description:
Influenza A+B Rapid Molecular Urgent
FRANK[place]N Source: Nasal Swab
Specimen Description:
04/26/25 19:55
Lactic Acid Q4H
Comment: CANCEL 2nd LACTIC ACID IF 1st LACTIC ACID IS LESS THAN 2
04/26/25 20:33
Urinalysis Reflex To Culture Urgent
Date Specimen was Collected: 04/26/25
Time Specimen was Collected: 20:24
Urine Microscopic Reflex Cult Urgent
Blood Culture Q30M
FRANK[place]N Source: Blood/Venous
Specimen Description:
Urine Culture Urgent
FRANKLYN Source: U
Specimen Description:
Date Specimen was Collected: 04/26/25
Time Specimen was Collected: 20:24
04/26/25 21:27
Admit/Transfer Patient As Directed
Co-Sign Provider:
Level of Care: Inpatient admission
Assign to:: Medical/Surgical
Physician / Group: cristy
Diagnosis: UTI
Reason for Hospitalization: UTI
Expected length of stay greater than two midnights?: Yes
ELOS- Estimated Length of Stay in days: 3
I certify the patient meets the requirements for IP care: Yes
PRN Pain Medication Management As Directed
May give lesser potent ordered pain med per pt: Yes
preference::
Protocol:: Medication orders for pain may be administered in a
manner that supports deferring to patient preference
when the pt is:
- Requesting an ordered lesser potent pain medication.
Least to most potent pain medications are defined
as: acetaminophen < NSAID < tramadol < opioids
(morphine, oxycodone, hydromorphone).
- Requesting a lesser dose of the same medication IF
ORDERED.
- Requesting a less intrusive route of administration
if both routes are prescribed by the provider (PO <
IV).
04/26/25 21:28
Code Status As Directed
Resuscitation Status: Full Code
04/26/25 22:00
CefTRIAXone [Rocephin] 1,000 mg IV Q24H
04/26/25 22:16
0.9% Sodium Chloride 1000 ml [Nss] 1,000 ml IV 80 mls/hr
Acetaminophen [Tylenol] 650 mg PO Q4HPRN PRN
Bisacodyl [Dulcolax] 10 mg RECTAL [id number] PRN
Docusate W/Senna [Senokot-S] 1 tablet PO BIDPRN PRN
Polyethylene Glycol Powder [Miralax] 17 grams PO DAILYPRN PRN
04/26/25 22:16
Activity As Directed
Activity Level: As Tolerated
Pneumatic Compression Sleeves As Directed
Type: Knee high
Vital Signs As Directed
Frequency: Per unit guidelines
O2 Therapy [RESP] Routine
Titrate/Wean O2 to maintain O2 sat greater than (%): 95
DX Deep Vein Thrombosis Video Routine
04/27/25 00:00
CT Head W/o Iv Contrast Urgent
Reason For Exam: change in mental state
04/27/25 05:49
Basic Metabolic Panel IN AM
Complete Blood Count/No Diff IN AM
04/27/25 07:30
Carbidopa/Levodopa [Sinemet 25-100] 1 tablet PO AC
04/27/25 08:00
Amantadine [Symmetrel] 100 mg PO BID
Docusate Sodium [Colace] 100 mg PO DAILY
Escitalopram Oxalate [Lexapro] 10 mg PO DAILY
Famotidine [Pepcid] 20 mg PO DAILY
Lamotrigine [Lamictal] 150 mg PO BID
Pantoprazole [Protonix] 40 mg PO DAILY
Rivastigmine [Exelon Patch] 4.6 mg TRANSDERM DAILY
alendronate 70 mg PO ELIZALDE
04/27/25 18:00
Quetiapine Fumarate [Seroquel] 25 mg PO QPM
04/28/25 06:00
Basic Metabolic Panel IN AM
Complete Blood Count/No Diff IN AM
04/29/25 06:00
Basic Metabolic Panel IN AM
Complete Blood Count/No Diff IN AM
Abnormal Lab Results
04/26/25 04/26/25
20:33
WBC 10.9 H 10^3/uL
(4.8-10.8)
RBC 4.06 L 10^6/uL
(4.20-5.40)
Hgb 11.9 L g/dL
(12.0-16.0)
MCHC 31.7 L g/dL
(33.0-37.0)
Abs Immat Gran (auto) 0.1 H 10^3/uL
(0-0.05)
Absolute Neuts (auto) 8.7 H 10^3/uL
(1.4-6.5)
Absolute Monos (auto) 0.8 H 10^3/uL
(0.1-0.6)
Neutrophils % 80.3 H %
(42.2-75.2)
Lymphocytes % 11.2 L %
(20.5-51.1)
BUN 54 H mg/dl
(7-17)
Creatinine 1.9 H mg/dL
(0.6-1.0)
Glucose 187 H mg/dl
(70-99)
Ur Occult Blood Reflex 4+ A
(Negative)
Urine Nitrite (Reflex) Positive A
(Negative)
Leukocyte Esterase Rfl 3+ A
(Negative)
Urine RBC >100 A /HPF
(0-2)
Urine Albumin (Reflex) 3+ A
(Neg - Trace)
04/26/25 19:25
04/26/25 19:25
Vital Signs
Initial and Last Documented VS:
Initial Vital Signs
BP
127/71
04/26/25 19:02
Last Documented Vital Signs
Temp Pulse Resp BP Pulse Ox
98.8 F 70 26 124/68 95
04/26/25 19:11 04/26/25 21:45 04/26/25 21:45 04/26/25 21:00 04/26/25 21:45
MDM/Problems Addressed
Differential Diagnosis Includes:
UTI, dehydration, electrolyte imbalance, CVA, dementia
MDM/Problems Addressed:
70 yo female w hx of dementia, Parkinson's, bladder CA, chronic hematuria, depression/anxiety presents from [facility] for change in mental status, lethargy, not eating, speaking incoherently only in whispers. Son at bedside states this is a definite
change from her baseline. Pt is unable to state why she is here. She does say she's at '[facility].' She denies headache, CP, trouble breathing. Denies abdominal pain or pain in arms or legs.
Son states she is NOT here for vaginal/urethral bleeding as this is chronic and a separate issue.
Admitted 03/26-03/27 for this bleeding, had a cystoscopy/L ureteroscopy: finding of chronically inflamed bladder w/o malignancy and out pt f/u recommended.
CBC with no clinically significant abnormality
CMP: BUN/creat 54/1.9 otherwise unremarkable
Chest x-ray: NAD
RN reports pulse ox dipped into 80's so placed on O2 5 L N.C. Pulse ox now 96%
Diagnosis: UTI, Dehydration, acute renal insufficiency, change in mental state.
U/A showing infection.
Hospitalist notified of admission
Head CT pending
*Pulse Oximetry
SaO2: 91
Oxygen Mode of Delivery: Room air
Patient hypoxic: yes (dipped into 80's, O2 5 L N.C. and O2 back up to 96%)
*Critical Care Note
Total Time (30-74mins, 75-104mins- exclusive of procedures): Not Applicable
ED Attending Note
-
Portions of this chart may have been created with voice recognition software.� Occasional wrong word or��sound alike� substitutions may have occurred due to the inherent limitations of voice recognition software.
Discharge Plan
Departure
Patient Disposition: Admit
Date of Disposition: 04/26/25
Time of Disposition: 20:58
Admit to: Med/Surg
Presentation/result/management discussed w/ accepting MD/DO: Hospitalist
Condition: Serious
Discharge Problem:
Acute UTI, Altered mental status, Acute renal insufficiency
Interventions
Interventions:
*Risk Screen - Suicide Last Done: 04/26/25 19:14
*General Assessment Last Done: 04/26/25 19:14
*Neglect/Abuse Screening Last Done: 04/26/25 19:14
*ED- Fall Risk Assessment Last Done: 04/26/25 19:14
*ED COVID-19 Vaccine History Last Done: 04/26/25 20:21
*ED Influenza Vaccine History Last Done: 04/26/25 20:21
ED-Female Genitourinary Assessment Last Done: 04/26/25 21:25
[2025-04-26 19:50] LABS: ALT (SGPT) < 10 U/L (0-35); AST (SGOT) 16 U/L (14-36); Albumin 3.8 g/dl (3.5-5.0); Alkaline Phosphatase 112 U/L (38-126); Blood Urea Nitrogen 54 mg/dl (7-17); Calcium 10.0 mg/dl (8.4-10.2); Carbon Dioxide 27 mmol/L (22-30); Chloride 105 mmol/L (98-107); Estimated Creatinine Clearance 22 ml/min; Glucose 187 mg/dl (70-99); Potassium 4.8 mmol/L (3.5-5.1); Sodium 142 mmol/L (135-145); Total Protein 7.6 g/dl (6.3-8.2); eGFR 28.06
[2025-04-26] MEDS: NSS 1000 IV ×2 (19:56→22:27)
[2025-04-26 20:19] LABS: COVID-19 Antigen Negative (Negative)
[2025-04-26 20:27] VITALS: BP 124/68
[2025-04-26] MEDS: TYLENOL/FEVERALL 650 MG RECTAL (20:34)
[2025-04-26 20:53] LABS: Urine Character Cloudy (Clear)
--- NOTE | 2025-04-26 20:59 | HPS.HSE ---
Addendum entered and electronically signed by Connor Flower DO 04/26/25 21:47:
Patient seen and examined independently. Agree with findings and plan as set forth by JAMES Camarena.
Patient is a 70y F with PMH significant for Parkinson's with dementia, bladder cancer and chronic hematuria who presents to ED from [facility] for evaluation of lethargy. Patient was sleeping more than usual and missed meals throughout the day today.
There were no specific complaints / symptoms.
In the ED, UA shows predominance of RBCs - which, again, is chronic.
Ass:
Acute TME / Lethargy
HUEY
Chronic Hematuria / Possible UTI
Acute Hypoxemic Respiratory Insufficiency
History of Bladder Cancer
Parkinson's Disease with Dementia and Behavioral Disturbance
Plan:
Admit for further evaluation and treatment.
IVF support and follow for improvement in renal function.
With hematuria (though chronic) and significant HUEY, will check renal US in AM.
IV abx for now and follow-up urine culture. Not clear based on current data that infection is present.
? mild hypoxemia related to lethargy / sleep? CXR is unremarkable. COVID negative in the ED. No cough or respiratory complaints.
Continue usual dementia / mood medications without changes.
Original Note:
Family Physician
-
Family Physician: Phani Muleln Sr.,
Chief Complaint
-
generalized weakness
poor appetite.
History of Present Illness
70 yo female w hx of dementia, Parkinson's, bladder CA, chronic hematuria, depression/anxiety presents from [facility] with lethargy since this morning. history obtained from son. she did not eat anything today. she was sleeping more than usual. she
had a low temp at [employer]. patient denied any CALL[place]AY, chest pain, sob. denied abdominal pain,n,v,d. as per son,she is incontinence of urine.
concern for UTI. initiated on ceftriaxone. patient received normal saline and Tylenol in ER. blood culture and CT head ordered in ER. admitting for further management.
Medical History
Past Medical History
Past Medical History: Reports Other
Additional Past Medical History:
bladder cancer, HLD, anxiety, osteoporosis, cataract, depression, Parkinson, dementia,
Past Surgical History: Reports Other
Additional Past Surgical History:
. TURBT.
Social History
Tobacco: Former Smoker
Alcohol: None
Drug: None
Personal: Single
Living: [facility]
Family History
Family History: Not pertinent
Allergies / Home Medications
Allergies reflects when Allergies were last updated in [facility].
Home Medications with original date entered in [facility]
Allergy/Medication List:
Allergies
Allergy/AdvReac Type Severity Reaction Status Date / Time
No Known Allergies Allergy Verified 02/01/25 16:55
Home Medications
alendronate 70 mg tablet 70 mg PO ELIZALDE OSTEOPEROSIS 02/01/25
carbidopa 25 mg-levodopa 100 mg tablet 1 tab PO AC Neurological Condition 02/01/25
therapeutic multivitamin 1 tab PO DAILY Supplement 02/01/25
amantadine HCl 100 mg capsule 100 mg PO BID Neurological Condition 03/25/25
melatonin 5 mg disintegrating tablet 5 mg PO HS Sleep 03/25/25
quetiapine 25 mg tablet 25 mg PO QPM 03/25/25
famotidine 20 mg tablet 20 mg PO DAILY #0 tabs 03/27/25
docusate sodium 100 mg capsule 100 mg PO DAILY 04/26/25
escitalopram oxalate 10 mg tablet 10 mg PO DAILY 04/26/25
lamotrigine 150 mg tablet 150 mg PO BID 04/26/25
pantoprazole 40 mg tablet,delayed release 40 mg PO DAILY 04/26/25
rivastigmine 4.6 mg/24 hour transdermal patch 1 patch transdermal DAILY 04/26/25
Review of Systems
-
Constitutional: Reports No Symptoms
EENT: Reports No Symptoms
Respiratory: Reports No Symptoms
Cardiac: Reports No Symptoms
Abdomen/GI: Reports No Symptoms
: Reports No Symptoms
Musculoskeletal: Reports No Symptoms
Skin: Reports No Symptoms
Neurological: Reports Weakness
Endocrine: Reports No Symptoms
Hematologic/Lymphatic: Reports No Symptoms
Psych: Reports No Symptoms
Physical Exam
Vital Signs
Vital Signs
Temp Pulse Resp BP Pulse Ox
98.8 F 83 28 127/71 91
04/26/25 19:11 04/26/25 19:11 04/26/25 19:11 04/26/25 19:11 04/26/25 19:41
Physical Exam
General: Well Developed, Well Nourished and No Apparent Distress
HEENT: NormoCephalic, Moist mucous membranes and Atraumatic
Respiratory: Clear
Cardiac: S1/S2 and Regular Rhythm; No Murmur or Rub
GI: Soft, Non Tender, Non Distended and Normal Bowel Sounds; No Organomegaly
Rectal: Deferred by Provider
Musculoskeletal: No Clubbing, No Cyanosis and No Edema
Skin: No Rash
Neuro: Nonfocal/grossly intact
Psych: Confused
Laboratory Results
-
04/26/25 19:25
04/26/25 19:25
Laboratory Results
Lactic Acid Cancelled 04/26/25 23:45
Total Bilirubin 0.5 mg/dl (0.2-1.3) 04/26/25 19:25
AST 16 U/L (14-36) 04/26/25 19:25
ALT < 10 U/L (0-35) 04/26/25 19:25
Alkaline Phosphatase 112 U/L (38-126) 04/26/25 19:25
Data Reviewed
-
Diagnostic Radiology: Report Reviewed by me
Lab Data: Labs Reviewed by me
Impression/Plan
-
#fever/metabolic encephalopathy concern for UTI
#hxt of streptococcus species, klebsiella pneumoniae, klebsiella oxytoca
-iv ceftriaxone continued
-urine culture pending
-Tylenol prn for fever and pain
-head CT pending
-wbc 10.9
#acute hypoxia unclear cause
-COVID flu negative
-chest x ray negative
-continue supplemental oxygen to keep sat>95, wean as tolerated
#acute renal failure secondary to dehydration
-cr 1.9
-fluids continued
-obtain renal US
#Parkinson's disease
#Dementia with mood disturbance
-amantadine and carbidopa-levodopa continued
-Escitalopram continued
-Lamictal continued
-rivastigmine
#GERD
-PPI continued
#History of bladder cancer s/p TURBT
-hxt of chronic hematuria secondary to chronically inflamed bladder
#Osteoporosis
-Fosamax continued
#DVT prophylaxis
-scd
Full code
[2025-04-26 21:00] VITALS: BP 124/68
[2025-04-26 21:08] LABS: Urine Red Blood Cell >100 /HPF (0-2)
[2025-04-26] MEDS: STERILE WATER FOR INJECTION 10 ML IV (22:31)
[2025-04-26] MEDS: ROCEPHIN 1000 MG IV (22:31)
[2025-04-27 06:18] LABS: Hematocrit 33.6 % (37.0-47.0); Hemoglobin 11.1 g/dL (12.0-16.0); Mean Corp Hgb Conc. 33.0 g/dL (33.0-37.0); Mean Corpuscular Volume 90.1 fL (81.0-99.0); Platelet Count 276 10^3/uL (130-400); Red Cell Dist. Width 13.6 % (11.5-14.5)
[2025-04-27 06:23] LABS: Blood Urea Nitrogen 46 mg/dl (7-17); Calcium 9.1 mg/dl (8.4-10.2); Carbon Dioxide 25 mmol/L (22-30); Chloride 113 mmol/L (98-107); Estimated Creatinine Clearance 30 ml/min; Glucose 157 mg/dl (70-99); Potassium 4.4 mmol/L (3.5-5.1); Sodium 148 mmol/L (135-145); eGFR 40.47
[2025-04-27 09:52] VITALS: BP 105/68
[2025-04-27] MEDS: LAMICTAL 150 MG PO ×2 (10:04→20:59)
[2025-04-27] MEDS: COLACE 100 MG PO (10:05)
[2025-04-27] MEDS: SINEMET 25-100 1 TABLET PO ×3 (10:05→16:57)
[2025-04-27] MEDS: EXELON PATCH 4.6 MG TRANSDERM (10:05)
[2025-04-27] MEDS: SYMMETREL 100 MG PO ×2 (10:05→20:59)
[2025-04-27] MEDS: PEPCID 20 MG PO (10:05)
[2025-04-27] MEDS: LEXAPRO 10 MG PO (10:05)
[2025-04-27] MEDS: PROTONIX 40 MG PO (10:05)
--- NOTE | 2025-04-27 11:13 | W.PN.HOSP.TC ---
Today's Communication/Plan
-
Continue with IV ceftriaxone
Bladder scan protocol
Renal ultrasound
Continue with IV fluids and follow BMP
Assessment / Plan
Assessment / Plan
# Sepsis present on admission-patient was febrile at detention,she is tachycardic here, and white count was 10.9. Suspected source tract.
# Change in mental status with more lethargy and sleepiness-suspect secondary to toxic metabolic encephalopathy
# Suspected UTI
#Cvmrwevdos-odda-vhxsudzn-suspect tract based on data points so far
#hx UTI
#Neurogenic bladder, chronic cystitis, left hydro nephrosis due to reflex on the recent cystoscopy
##History of bladder cancer s/p TURBT -with no recurrence on recent cystoscopy
-hxt of chronic hematuria secondary to chronically inflamed bladder
-Continue with IV ceftriaxone follow culture data.
- Continue with IV fluids till oral intake is adequate
- Check bladder scan to make sure she is evacuating completely.
#acute hypoxia
Resolved quickly. Suspect atelectasis.
-COVID flu negative
-chest x ray negative
# HUEY suspected prerenal. Rule out obstructive uropathy
-cr 1.9-improved to 1.4. Baseline 0.8
-fluids continued
-obtain renal US
#Parkinson's disease
#Dementia with mood disturbance
-amantadine and carbidopa-levodopa continued
-Escitalopram continued
-Lamictal continued
-rivastigmine
#GERD
-PPI continued
#Osteoporosis
-Fosamax continued
#DVT prophylaxis
-scd
Full code
Discussed with son at bedside
Total time spent on today's encounter was 52 minutes which included time spent in counseling the patient/family regarding diagnosis and treatment plan as listed above, goals of care, and symptom management. Case was discussed with nursing staff,
specialists, and care coordinators/case management. All labs and imaging personally reviewed by me. Remainder the time spent in detailed review of previous records, lab data, imaging, and other medical provider documentation.
Portions of this chart may have been created with voice recognition software. Occasional wrong word or 'sound alike' substitutions may have occurred due to the inherent limitations of voice recognition software.
Anticipated Discharge: > 48 hours
Subjective/Interval History
-
Date of Service: April 27, 2025
History is from a patient and son at bedside.
Patient is in [facility] for the last 2 months. She was initially with the son but was having hard time especially with night care so moved up to [employer]. She has dementia and Parkinson dz.
She normally able to communicate her needs but the yesterday she was having a very low volume speech which is unusual for her and she was talking incomprehensible words to the son. Son finds it today to be better she finds her speech back at
baseline. No dysphagia but she is pretty much wheelchair-bound.
She was sent in because of lethargy and generalized weakness.
She denies any fever chills today. No nausea vomiting. No abdominal pain.
Does complain about dysuria. But she could not answer if she can evacuate the bladder completely. She apparently is incontinent of urine.
She has been having recurrent urinary issues and she was supposed to get a urodynamic study which got postponed to July because of her hospitalization and cancellation of her appointment.
Objective Data
-
Labs:
Laboratory Results
04/27/25
05:49
WBC 9.8
Hgb 11.1 L
Hct 33.6 L
Plt Count 276
Sodium 148 H
Potassium 4.4
Chloride 113 H
Carbon Dioxide 25
BUN 46 H
Creatinine 1.4 H
Glucose 157 H
Calcium 9.1
Vital Signs:
Vital Signs
Temp Pulse Resp BP Pulse Ox
98.2 F 93 22 105/68 93
04/27/25 10:01 04/26/25 21:53 10/18/25 21:53 04/27/25 09:52 04/27/25 10:30
Physical Exam
-
General: No Apparent Distress
HEENT: Moist Mucous Membranes
Respiratory: Clear to Auscultation and Non Labored Respirations; Negative Accessory Resp Muscle Use
Cardiac: Regular Rhythm, S1/S2 and Tachycardic
GI: Soft, Nondistended, Normal Bowel Sounds and Other (urination urge when suprapubic area palpated)
Neuro: Awake, Alert, Oriented and Tremors (PD); Negative AO x 3
Psych: Calm and Confused; Negative Agitated
Data Reviewed
-
Labs: Labs Reviewed by me
[2025-04-27 12:06] VITALS: BP 141/72
[2025-04-27] MEDS: NSS 1000 IV (13:51)
--- NOTE | 2025-04-27 16:26 | EDCM ---
CM reviewed chart and met with pt bedside in ED. Lives in Assisted living at [facility], the [place], room [address]
Needs assistance with ADLs and personal care, ambulates with RW.
Confirms prescription coverage.
PCP: Phani Mullen
Pharmacy: [facility] ( [facility] supplies meds)
Anticipate discharge home, CM will continue to follow for any discharge planning needs.
[2025-04-27] MEDS: SEROQUEL 25 MG PO (16:57)
[2025-04-27 19:00] VITALS: BMI 18.3
[2025-04-27] MEDS: ROCEPHIN 1000 MG IV (21:00)
[2025-04-27] MEDS: STERILE WATER FOR INJECTION 10 ML IV (21:00)
[2025-04-27 22:05] VITALS: BMI 18.3
[2025-04-27 22:07] VITALS: BP 120/75
[2025-04-27 22:14] VITALS: BP 120/75
[2025-04-28 05:48] LABS: Hematocrit 31.4 % (37.0-47.0); Hemoglobin 10.2 g/dL (12.0-16.0); Mean Corp Hgb Conc. 32.5 g/dL (33.0-37.0); Mean Corpuscular Volume 89.7 fL (81.0-99.0); Platelet Count 175 10^3/uL (130-400); Red Cell Dist. Width 13.8 % (11.5-14.5)
[2025-04-28 06:16] LABS: Blood Urea Nitrogen 31 mg/dl (7-17); Calcium 8.2 mg/dl (8.4-10.2); Carbon Dioxide 20 mmol/L (22-30); Chloride 121 mmol/L (98-107); Estimated Creatinine Clearance 41 ml/min; Glucose 112 mg/dl (70-99); Sodium 150 mmol/L (135-145); eGFR > 60.00
--- NOTE | 2025-04-28 07:06 | W.PN.HOSP.TC ---
Today's Communication/Plan
-
See plan
Assessment / Plan
Assessment / Plan
Physical Exam
General: No Apparent Distress
HEENT: Moist Mucous Membranes
Respiratory: Clear to Auscultation and Non Labored Respirations Bilaterally
Cardiac: Regular Rhythm, S1/S2
GI: Soft, Nondistended, Normal Bowel Sounds and Other (urination urge when suprapubic area palpated)
Neuro: Awake, Alert, Oriented and Tremors (PD)
Psych: Calm and Confused
Assessment/Plan
Patient is in [facility] for the last 2 months. She was initially with her son but was having a hard time especially with night care so moved up to [employer] [facility]. She has dementia and Parkinson disease. She normally able to communicate her needs but recently,
she was having a very low volume speech which is unusual for her and she was talking incomprehensible words to her son, her speech later improved to baseline. No dysphagia but she is pretty much wheelchair-bound. She was sent into the hospital
because of lethargy and generalized weakness.
#Presentation with Lethargy and Weakness
#Sepsis present on admission-patient was febrile at [facility],she is tachycardic here, and white count was 10.9. Suspected source tract.
#Change in mental status with more lethargy and sleepiness-suspect secondary to toxic metabolic encephalopathy
#Complicated Urinary Tract Infection
#Bacteremia due to Proteus
#History of UTI
#Neurogenic bladder, chronic cystitis, left hydro nephrosis due to reflex on the recent cystoscopy
#History of bladder cancer status post TURBT - with no recurrence on recent cystoscopy
-History of chronic hematuria secondary to chronically inflamed bladder
-Continue with IV ceftriaxone follow culture data.
-Follow repeat blood cultures
-Continue with IV fluids till oral intake is adequate
-Monitor bladder scans to make sure she is evacuating completely.
-Patient has been incontinent of urine, she has been having recurrent urinary issues and she was supposed to get a urodynamic study which got postponed to July 2025 because of her hospitalization and cancellation of her appointment.
-Appreciate urology
-After completion of antibiotic course, start Methenamine 1 gram bid for prophylaxis
#Acute Hypoxia - RESOLVED
-Resolved quickly. Suspect atelectasis.
-COVID flu negative
-Chest x ray negative
#Hypernatremia
-D5W IV fluids
-Recheck BMP this evening
#HUEY suspected prerenal. Rule out obstructive uropathy
-cr 1.9-improved to 1.4 to 1.1. Baseline 0.8
-fluids continued
-obtain renal US
#Parkinson's disease
#Dementia with mood disturbance
-amantadine and carbidopa-levodopa continued
-Escitalopram continued
-Lamictal continued
-rivastigmine
#GERD
-PPI continued
#Osteoporosis
-Fosamax continued
DVT Prophylaxis: SCDs. Heparin subq.
Code Status: Full code
Anticipated Discharge: > 48 hours
Subjective/Interval History
-
Date of Service: April 28, 2025
Patient was seen and examined. She appeared confused, denied any new symptoms or complaints.
Objective Data
-
Labs:
Laboratory Results
04/28/25
05:22
WBC 8.3
Hgb 10.2 L
Hct 31.4 L
Plt Count 175 D
Sodium 150 H
Potassium
Chloride 121 H
Carbon Dioxide 20 L
BUN 31 H
Creatinine 1.0
Glucose 112 H
Calcium 8.2 L
Vital Signs:
Vital Signs
Temp Pulse Resp BP Pulse Ox
98.3 F 85 28 120/75 93
04/27/25 22:14 04/27/25 22:14 04/27/25 22:14 04/27/25 22:14 04/27/25 12:06
[2025-04-28 07:28] VITALS: BP 128/76
[2025-04-28] MEDS: LEXAPRO 10 MG PO (07:31)
[2025-04-28] MEDS: PEPCID 20 MG PO (07:31)
[2025-04-28] MEDS: COLACE 100 MG PO (07:31)
[2025-04-28] MEDS: SINEMET 25-100 1 TABLET PO ×3 (07:31→15:59)
[2025-04-28] MEDS: LAMICTAL 150 MG PO ×2 (07:31→21:19)
[2025-04-28] MEDS: PROTONIX 40 MG PO (07:31)
[2025-04-28] MEDS: EXELON PATCH 4.6 MG TRANSDERM (07:39)
[2025-04-28] MEDS: SYMMETREL 100 MG PO ×2 (07:39→21:20)
[2025-04-28 08:36] LABS: Blood Urea Nitrogen 29 mg/dl (7-17); Calcium 8.5 mg/dl (8.4-10.2); Carbon Dioxide 21 mmol/L (22-30); Chloride 120 mmol/L (98-107); Estimated Creatinine Clearance 38 ml/min; Glucose 117 mg/dl (70-99); Potassium 4.0 mmol/L (3.5-5.1); Sodium 151 mmol/L (135-145); eGFR 54.06
--- NOTE | 2025-04-28 08:52 | CON.MD ---
Consultation - Medical
-
see dictated note
pt well known to dr harrison
remote hx of bladder cancer
admit in january and mar 2025 with hematuria/UTI and imaging revealing left hydro
had OR cysto's on both these admits- no tumor/chronic cystitis and hydro due to rakel-ureter- reflux- no stone/tumor or obstruction
pt scheduled for out pt f/u including date for urodynamics
now admitted with fatigue/ams/nausea- ?hematuria
cx's +
u/s shows chronic hydro
pt can offer no sig hx
abd benign
non toxc
plan
treat UTI
hydro has been evaluated and not obstructive at this time
would rec after completion of rec antibx course- beginning methenamine 1gram bid for prophylaxis
outpt follow for review and urodynamics as scheduled
Consultation
-
Date/Time Consultation Requested: 03/29/25 at 7:30am
Date/Time Consultation Performed: 03/29/25 at 8am
Requesting Provider: Dr corea
Performing Provider: Dr dill
Reason for Consultation: uti and hydro
[2025-04-28 09:15] VITALS: BP 123/78; BP 131/70; PULSE 80; O2SAT 95
--- NOTE | 2025-04-28 09:25 | CON.ID ---
Addendum entered and electronically signed by Briseida Kwan MD 04/28/25 11:35:
I personally performed a history and physical exam of the patient and discussed management with the resident. I reviewed the resident's note and agree with the documented findings and plan of care HPI/CC with the following additions/corrections:
Ms Baeza is a 70 year old female with history of Parkinson's/dementia, bladder cancer s/p TURBT (no recurrence on recent cystoscopy), neurogenic bladder who presented here for increased lethargy. She denies headache, chest pain, shortness of
breath, abdominal pain, nausea, vomiting, diarrhea. She is incontinent of urine.
General: No Apparent Distress
HEENT: Moist Mucous Membranes
Respiratory: Clear to Auscultation and Non Labored Respirations
Cardiac: Regular Rhythm, S1/S2 and Tachycardic
GI: Soft, Nondistended, Normal Bowel Sounds
Neuro: Awake, Alert, Oriented and Tremors (PD); Negative AO x 3
Psych: Calm and Confused; Not Agitated
Renal US:
Mild left renal collecting system dilatation with some likely layering debris.
Layering debris within the urinary bladder. Evaluation limited for urinary bladder mass which cannot be excluded.
A&P:
Complicated UTI
Bacteremia due to Proteus
HUEY - resolving
- she is retaining some urine, consider bladder scan/straight cath
- repeat blood cultures are in progress
- urine culture is pending
- continue ceftriaxone
- follow clinically
Original Note:
Consultation
-
Date/Time Consultation Requested: 04/28/2025 at 7 am
Date/Time Consultation Performed: 04/28/2025 at 8:30 AM
Requesting Provider: Armando Young
Performing Provider: Dr Kwan
Reason for Consultation: Proteus and gram-negative bacilli bacteremia
Chief Complaint / Past History
Chief Complaint
Altered mental status
History of Present Illness
Patient is a 70-year-old female with a past medical history of dementia, Parkinson's, bladder cancer status post TURP, chronic hematuria, and depression/anxiety who presented from [facility] due to change in mental status, lethargic, poor food intake,
and incoherent whispering when she tried to communicate. She was recently admitted on 03/26 to the for hematuria and underwent a cystoscopy and left ureteroscopy which found chronically inflamed bladder without malignancy -at that time, the
patient was discharged with plan to follow-up in the outpatient setting with urology. Her son who was present on the patient's initial presentation to the emergency department on 04/26/2025 stated that this was far from the patient's baseline.
When she presented to the emergency department she was unable to state why she was at the emergency department but she was oriented to place and was aware that she was at [facility]. She denied any headache, chest pain, shortness of
breath, chest tightness, or chest pain. She denied any abdominal pain or limb pain. In the emergency department underwent a chest x-ray which was clear, a CT of the head which was clear, and a renal ultrasound that showed a right adrenal mass with
left renal dilatation suggesting left hydronephrosis. Blood cultures were drawn and and one of the cultures preliminarily resulted positive for Proteus species. Urine analysis with reflex to culture showed 4+ blood, nitrite positive, leukocyte
esterase, 3+ albumin, and white blood cells were unable to be determined because they were obscured by red blood cells. She had a rectal temp of 102.3 in the emergency department with tachycardia and she had leukocytosis with a white blood cell
count of 10.9 indicating sepsis secondary to UTI. Patient was admitted for altered mental status and sepsis secondary to UTI.
Past History
Additional Past Medical History:
Dementia
Parkinson's Disease
Bladder CA S/P TURBT
Chronic Hematuria
Depression/anxiety
GERD
Osteoporosis
Constipation
Past Surgical History: Urological (S/P TURBT for Bladder CA)
Allergy History:
No Known Allergies Allergy (Verified 04/26/25 22:19)
Medications Reviewed: Yes
Current Antibiotics:
Ceftriaxone 1000mg IV q24h
Social History
Tobacco: Non-Smoker
Alcohol: None
Drug: None
Personal:
Living: [facility]
Employment: Retired
Family History
Family History: Unable to Obtain
Review of Systems
Review of Systems
General: Other (Limited due to acuity)
Musculoskeletal: Other (difficulty with hand manipulation)
All systems: All other systems were reviewed and were negative
Vital Signs
Temp Pulse Resp BP Pulse Ox
98.3 F 71 16 128/76 95
04/28/25 07:28 04/28/25 07:28 04/28/25 07:28 04/28/25 07:28 04/28/25 07:28
Physical Exam
Physical Exam
Constitutional: No Acute Distress, Comfortable and Cachetic
Eyes: Pupils Equal, Pupils Round, No Conjunctival Hemorrhage and Sclera Anicteric
Pharynx: Negative Erythema
Lymph Nodes: Negative Lymphadenopathy
Cardiovascular: Regular Rate and S1/S2; Negative Murmur, Rub, Peripheral Edema or Gallop
Pulmonary: Clear and Non Labored; Negative Wheezes, Rales, Rhonchi or Coarse
Gastrointestinal: Soft, Non Tender, Non Distended and Normal Bowel Sounds; Negative No Rebound or No Guarding
Genito-Urinary: Hematuria and Other (Urine pink + yellow colored and cloudy)
Extremities: Negative Edema, Clubbing or Cyanosis
Musculoskeletal: Negative Joint Swelling
Skin: Warm and Dry; Negative Rash, Jaundice or Ulcers
Wound: None
Neurological: Awake, Alert, Oriented and AO x 3
Psychological: Calm
Lab / Diagnostic Study Results
04/28/25 05:22
04/28/25 07:56
Abs Immat Gran (auto) 0.1 10^3/uL (0-0.05) H 04/26/25 19:25
Absolute Neuts (auto) 8.7 10^3/uL (1.4-6.5) H 04/26/25 19:25
Absolute Lymphs (auto) 1.2 10^3/uL (1.2-3.4) 04/26/25 19:25
Absolute Monos (auto) 0.8 10^3/uL (0.1-0.6) H 04/26/25 19:25
Absolute Basos (auto) 0.0 10^3/uL (0-0.2) 04/26/25 19:25
Immature Gran % 0.5 % (0-0.5) 04/26/25 19:25
Neutrophils % 80.3 % (42.2-75.2) H 04/26/25 19:25
Lymphocytes % 11.2 % (20.5-51.1) L 04/26/25 19:25
Monocytes % 7.6 % (1.7-9.3) 04/26/25 19:25
Eosinophils % 0.0 % (0-6) 04/26/25 19:25
Basophils % 0.4 % (0-2) 04/26/25 19:25
Lactic Acid Cancelled 04/26/25 23:45
Ur Squamous Epith Cells /LPF (Few) 04/26/25 20:33
Microbiology Results
Micro:
04/27/25 05:49 MRSA Screen - Final
Nose No Methicillin Resistant Staphylococcus aureus isolated.
04/28/25 08:04 Blood Culture - Pending
Blood/Venous
04/28/25 07:56 Blood Culture - Pending
Blood/Venous
04/26/25 19:54 Blood Culture - Preliminary
Blood/Venous Positive culture in progress
Gram Stain - Preliminary
04/26/25 20:33 Blood Culture - Preliminary
Blood/Venous Proteus species
Gram Stain - Preliminary
04/26/25 20:33 Urine Culture - Pending
Urine
04/26/25 19:54 Influenza Types A & B (KALEB) - Final
Nasal Swab Negative for Influenza A & B, NAAT
Negative results must be combined with clinical observations
and patient history.
Nucleic Acid Amplification test (NAAT)performed on the
Novavax platform.
Assessment / Plan
- Sepsis secondary to UTI: Unresolved/Improving
- Altered mental status secondary to UTI: Unresolved/Improving
UA obtained in the emergency department = 4+ blood, nitrite positive, leukocyte esterase 3+, greater than 100 urine RBC, 3+ albumin, urine WBCs obscured by RBCs - Positive for UTI
Patient was tachycardic, febrile with a temperature of 102.3 rectally, and had leukocytosis with WBCs of 10.9. Positive UA for UTI -sepsis secondary to UTI
Urine culture from 06/30/2015 positive for Klebsiella oxytoca
Urine culture from 02/01/2025 positive for Klebsiella pneumonia
Urine culture from 03/25/2025 positive for Streptococcus species
Pending urine culture from sample taken on 04/26/2025
Ceftriaxone 1000 mg started on 04/26/2025 -currently on day 2 on 04/28/2025
Leukocytosis improved to 8.3 on 04/28/2025
Urine is pink with yellow tinge and is cloudy on 04/28/2025
Patient's mentation appears to improved marginally from admission and the patient is oriented to person place and time.
Continue Ceftriaxone 1000mg q24h until culture results with sensitivities and narrow coverage as appropriate
- Sepsis secondary to Bacteremia: Unresolved/Improving
Patient was tachycardic, febrile with a temperature of 102.3 rectally, and had leukocytosis with WBCs of 10.9. BCsx2 drawn. First culture positive for Gram Neg Bacilli, 2nd culture positive for Proteus and Gram Negative Bacilli.
Leukocytosis improved to 8.3 on 04/28/2025
Patient's mentation appears to improved marginally from admission and the patient is oriented to person place and time.
Continue Ceftriaxone 1000mg q24h until culture results with sensitivities and narrow coverage as appropriate
--- NOTE | 2025-04-28 09:29 | CM ---
Addendum entered by Swati Weathers 04/28/25 10:11:
marketing information manager spoke with admissions at [facility], [facility] and they report that patient uses her w/c all of the time, patient is a stand and pivot to w/c assist of one, with transports, patient is able to feed self, per admissions if patient able to
stand and pivot with assist of one she can return to [facility] 5th and continue to follow with physical therapy on the 5th floor.
Original Note:
marketing information manager reviewed patient's chart and will await PT/OT evaluation and recommendations on patient. Patient resides at [facility] 5th floor.
Plan; To follow with patient progress.
[2025-04-28 10:54] VITALS: BMI 18.3
[2025-04-28] MEDS: D5W 1000 IV (11:14)
[2025-04-28 14:52] VITALS: BP 134/67
[2025-04-28 14:52] LABS: Albumin 3.1 g/dl (3.5-5.0)
[2025-04-28] MEDS: SEROQUEL 25 MG PO (17:53)
[2025-04-28] MEDS: NSS IV (19:27)
[2025-04-28] MEDS: HEPARIN 5000 UNITS SC (21:20)
[2025-04-28] MEDS: STERILE WATER FOR INJECTION 10 ML IV (21:22)
[2025-04-28] MEDS: ROCEPHIN 1000 MG IV (21:24)
[2025-04-28 22:30] VITALS: BP 141/75; BMI 19.0
--- NOTE | 2025-04-28 23:00 | PTCARENOTE ---
Received patient from ED into room 428
Admitted with altered mental status and suspected UTI
PMH of dementia, parkinson's, Bladder CA and chronic hematuria
Patient lethargic but arousable to voice. Slow and garbled speech, nods appropriately. Denies pain. VSS on RA.
Fall precautions in place, call guzman within reach and use encouraged.
[2025-04-29 00:09] LABS: Blood Urea Nitrogen 29 mg/dl (7-17); Calcium 8.8 mg/dl (8.4-10.2); Carbon Dioxide 28 mmol/L (22-30); Chloride 116 mmol/L (98-107); Estimated Creatinine Clearance 36 ml/min; Glucose 143 mg/dl (70-99); Potassium 4.3 mmol/L (3.5-5.1); Sodium 151 mmol/L (135-145); eGFR 48.70
[2025-04-29] MEDS: D5W 1000 IV (01:08)
[2025-04-29 06:00] VITALS: BMI 19.1
[2025-04-29 07:09] VITALS: BP 144/79
--- NOTE | 2025-04-29 07:42 | W.PN.URO.CBU ---
Today's Communication / Plan
-
continue antibx
Assessment / Plan
-
Hx of bladder cancer- cysto by dr harrison january and mar negative for tumor
Hx of left hydro- ureteroscopy by dr harrison january and mar negative for obstruction
Chronic Incontinence
Recurrent UTI
pt improving with antibx
pvr's are acceptable- corbin placement would only exacerbate bleeding/discomfort/etc at this point
would treat per ID- then suggest begining methenamine 1 gram po bid after course of antibx for prophylaxis
outpt f/u with dr harrison to continue eval and urodynamics
Diagnosis
-
Date of Service: April 29, 2025
-
Patient Diagnosis:
UTI
Neurogenic Bladder
Chronic Left Hydronephrosis
Subjective
-
pt confused this am
no fevers
urine and blood cx's + for proteus
pvr checks around 200cc
Objective
-
Vital Signs
Temp Pulse Resp BP Pulse Ox
97.8 F 77 22 141/75 94
04/28/25 22:30 04/28/25 22:30 04/28/25 22:30 04/28/25 22:30 04/28/25 22:30
Intake and Output
04/28/25 04/29/25 04/30/25
06:59 06:59 06:59
Intake Total 1900 / 1900
Output Total 250 / 250
Balance 1650 / 1650
Intake:
Oral fluids 600 / 600
IV fluids (Total) 1300 / 1300
Output:
Urine, Voided 250 / 250
Other:
How many times incontinent 5
MODERATE amount urine
Number of approximated SMALL 1
amounts of urine
Review of Systems
-
Unable to obtain full review of systems at this time due to: Dementia
Physical Exam
-
General - no acute distress
[2025-04-29] MEDS: EXELON PATCH 4.6 MG TRANSDERM (08:39)
[2025-04-29] MEDS: LAMICTAL 150 MG PO ×2 (08:40→19:53)
[2025-04-29] MEDS: PEPCID 20 MG PO (08:40)
[2025-04-29] MEDS: PROTONIX 40 MG PO (08:40)
[2025-04-29] MEDS: SINEMET 25-100 1 TABLET PO ×3 (08:40→17:15)
[2025-04-29] MEDS: SYMMETREL 100 MG PO ×2 (08:40→19:53)
[2025-04-29] MEDS: COLACE 100 MG PO (08:40)
[2025-04-29] MEDS: LEXAPRO 10 MG PO (08:40)
[2025-04-29] MEDS: HEPARIN 5000 UNITS SC ×2 (08:41→19:50)
[2025-04-29 09:07] LABS: Hematocrit 34.3 % (37.0-47.0); Hemoglobin 10.5 g/dL (12.0-16.0); Mean Corp Hgb Conc. 30.6 g/dL (33.0-37.0); Mean Corpuscular Volume 97.4 fL (81.0-99.0); Platelet Count 305 10^3/uL (130-400); Red Cell Dist. Width 13.9 % (11.5-14.5)
--- NOTE | 2025-04-29 09:17 | W.PN.HOSP.TC ---
Today's Communication/Plan
-
Change to oral antibiotics
Hypernatremia resolved with D5W IV fluids
Texted case management to see when patient can be discharged to facility
Assessment / Plan
Assessment / Plan
Physical Exam
General: No Apparent Distress
HEENT: Moist Mucous Membranes
Respiratory: Clear to Auscultation and Non Labored Respirations Bilaterally
Cardiac: Regular Rhythm, S1/S2
GI: Soft, Nondistended, Normal Bowel Sounds and Other (urination urge when suprapubic area palpated)
Neuro: Awake, Alert, Oriented and Tremors (PD)
Psych: Calm and Confused
Assessment/Plan
Patient is in [facility] for the last 2 months. She was initially with her son but was having a hard time especially with night care so moved up to [facility]. She has dementia and Parkinson disease. She normally able to communicate her needs but recently,
she was having a very low volume speech which is unusual for her and she was talking incomprehensible words to her son, her speech later improved to baseline. No dysphagia but she is pretty much wheelchair-bound. She was sent into the hospital
because of lethargy and generalized weakness.
#Presentation with Lethargy and Weakness
#Sepsis present on admission-patient was febrile at [facility],she is tachycardic here, and white count was 10.9. Suspected source tract.
#Change in mental status with more lethargy and sleepiness-suspect secondary to toxic metabolic encephalopathy
#Complicated Urinary Tract Infection
#Bacteremia due to Proteus
#History of UTI
#Neurogenic bladder, chronic cystitis, left hydro nephrosis due to reflex on the recent cystoscopy
#History of bladder cancer status post TURBT - with no recurrence on recent cystoscopy
-History of chronic hematuria secondary to chronically inflamed bladder
-Switch Ceftriaxone to Cephalexin today and continue Cephalexin for a total 7 days of antibiotics. (Day 1 of antibiotics was 04/26/25)
-Follow repeat blood cultures
-Continue with IV fluids till oral intake is adequate
-Monitor bladder scans to make sure she is evacuating completely.
-Patient has been incontinent of urine, she has been having recurrent urinary issues and she was supposed to get a urodynamic study which got postponed to July 2025 because of her hospitalization and cancellation of her appointment.
-Appreciate urology: no Le Catheter at this time as it would only exacerbate bleeding/discomfort/etc at this point
-After completion of antibiotic course, start Methenamine 1 gram bid for prophylaxis
-Outpatient f/u with Dr. Irving to continue evaluation and urodynamics
#Acute Hypoxia - RESOLVED
-Resolved quickly. Suspect atelectasis.
-COVID flu negative
-Chest x ray negative
#Hypernatremia
-D5W IV fluids were given with resolution of hypernatremia
-Monitor BMP
-Dietary and Speech consults to ensure adequate oral intake
#HUEY suspected prerenal. Rule out obstructive uropathy
-cr 1.9-improved to 1.4 to 1.1. Baseline 0.8
-fluids continued
-obtain renal US
#Parkinson's disease
#Dementia with mood disturbance
-amantadine and carbidopa-levodopa continued
-Escitalopram continued
-Lamictal continued
-rivastigmine
#GERD
-PPI continued
#Osteoporosis
-Fosamax continued
DVT Prophylaxis: SCDs. Heparin subq.
Code Status: Full code
Anticipated Discharge: Within 24 hours
Subjective/Interval History
-
Date of Service: April 29, 2025
Patient was seen and examined. She was eating breakfast and denied any new symptoms or complaints.
Objective Data
-
Labs:
Laboratory Results
04/28/25 04/29/25
23:40 08:13
WBC 9.2
Hgb 10.5 L
Hct 34.3 L
Plt Count 305 D
Sodium 151 H Pending
Potassium 4.3 Pending
Chloride 116 H Pending
Carbon Dioxide 28 Pending
BUN 29 H Pending
Creatinine 1.2 H Pending
Glucose 143 H Pending
Calcium 8.8 Pending
Vital Signs:
Vital Signs
Temp Pulse Resp BP Pulse Ox
97.6 F 79 16 144/79 93
04/29/25 07:09 04/29/25 07:09 04/29/25 07:09 04/29/25 07:09 04/29/25 07:09
I&O
04/28/25 04/29/25 04/30/25
06:59 06:59 06:59
Intake Total 1900 / 1900
Output Total 250 / 250
Balance 1650 / 1650
[2025-04-29 09:51] LABS: Blood Urea Nitrogen 27 mg/dl (7-17); Calcium 8.7 mg/dl (8.4-10.2); Carbon Dioxide 26 mmol/L (22-30); Chloride 113 mmol/L (98-107); Estimated Creatinine Clearance 39 ml/min; Glucose 141 mg/dl (70-99); Potassium 4.0 mmol/L (3.5-5.1); Sodium 142 mmol/L (135-145); eGFR 54.06
--- NOTE | 2025-04-29 12:45 | W.PN.ID1 ---
Date of Service
Date of Service: April 29, 2025
Today's Communication
- start keflex stop ceftriaxone for a 7 day total course
- agree with methenamine as prophylaxis after course of keflex
Assessment / Plan
A&P:
Complicated UTI due to Proteus
Bacteremia due to Proteus
HUEY - resolving
- repeat blood cultures are in progress - no growth to date
- start keflex stop ceftriaxone for a 7 day total course
- agree with methenamine as prophylaxis after course of keflex
- follow clinically
Subjective / Review of Systems
afebrile
bp stable
tolerating current therapies
Vital Signs / Physical Exam
Vital Signs
Vital Signs
Temp Pulse Resp BP Pulse Ox
97.6 F 79 16 144/79 93
04/29/25 07:09 04/29/25 07:09 04/29/25 07:09 04/29/25 07:09 04/29/25 07:09
Physical Exam
Constitutional: No Acute Distress
Cardiovascular: Regular Rate and S1/S2; Negative Murmur or Rub
Pulmonary: Clear and Symmetric; Negative Wheezes or Rales
Gastrointestinal: Soft, Non Tender, Non Distended and Normal Bowel Sounds
Genito-Urinary: Suprapubic Tenderness (mild)
Skin: Warm and Dry; Negative Rash or Jaundice
Objective Data
Lab Data
Lab Results
04/29/25 08:13
04/29/25 08:13
Estimated Creat Clear 39 ml/min 04/29/25 08:13
Lactic Acid Cancelled 04/26/25 23:45
Total Bilirubin 0.5 mg/dl (0.2-1.3) 04/26/25 19:25
AST 16 U/L (14-36) 04/26/25 19:25
ALT < 10 U/L (0-35) 04/26/25 19:25
Alkaline Phosphatase 112 U/L (38-126) 04/26/25 19:25
Most recent labs reviewed.
Micro Results:
04/26/25 20:33 Urine Culture - Final
Urine Proteus mirabilis
04/26/25 19:54 Blood Culture - Final
Blood/Venous Proteus mirabilis
Gram Stain - Final
04/28/25 08:04 Blood Culture - Preliminary
Blood/Venous No Growth in 24 hours- Final report to follow
04/26/25 20:33 Blood Culture - Final
Blood/Venous Proteus mirabilis
Gram Stain - Final
04/28/25 07:56 Blood Culture - Preliminary
Blood/Venous No Growth in 24 hours- Final report to follow
04/27/25 05:49 MRSA Screen - Final
Nose No Methicillin Resistant Staphylococcus aureus isolated.
04/26/25 19:54 Influenza Types A & B (KALEB) - Final
Nasal Swab Negative for Influenza A & B, NAAT
Negative results must be combined with clinical observations
and patient history.
Nucleic Acid Amplification test (NAAT)performed on the
[employer] platform.
--- NOTE | 2025-04-29 12:49 | PTOTSP ---
Dysphagia Evaluation:
Given PMH (dementia, Parkinson's, GERD) and altered mental status/lethargy 2/2 UTI, pt presents w/ acute and chronic risk factors for aspiration/dysphagia. However, no reports of difficulty swallowing, no overt s/sx of aspiration observed during
bedside swallow evaluation, no acute abnormalities on 04/26 CXR/CT scan, WBC is WNL, and pt is on room air. It is recommended that pt resumes Regulars, Thins diet
Recommendations:
1. Regulars, Thins
2. Medications as best tolerated
3. Full assistance/Partial supervision w/ meal set-up
4. Strategies: Single sips/small bites, slow rate, alternating liquid washes, reflux precautions
5. ST will sign off at this time. Reconsult if change in diet level tolerance/pt presentation.
6. Outpatient LENS ENGRAVER follow up for motor speech evaluation/treatment.
[2025-04-29] MEDS: KEFLEX 500 MG PO ×3 (14:22→21:33)
--- NOTE | 2025-04-29 14:30 | PN.CDI ---
CDI
- -
CDI:
Physician Documentation Request
Admit Date: 04/26/25 22:05
Dear Doctor Susanna,
Clinical Indicators:
BMI:
04/26/25
19:11 04/27/25
22:05 04/29/25
06:00
Body Mass Index (BMI) 18.3 18.3 19.1
04/28 ID consult, Physical ExamL: Cachectic
04/28 RD note, 'BMI: 18.3 (underweight). Weight history (02/02/25) 119 lbs. This is a 7.6% BW loss over 3 months
(significant).RD ordered Ensure Enlive daily.'
If possible, please provide an associated diagnosis related to the abnormal BMI (< or = to 19) such as:
Cachexia
Underweight
Weight loss only
Other, please specify
Use of terms such as suspected, likely, concern for, or probable (associated with a specific diagnosis that is being evaluated, monitored, or treated as if it exists) are acceptable and can be coded in the inpatient setting, when documented at the
time of discharge.
Thank you,
EDUARDO Patricia RN
CDI Specialist
Please use your independent medical judgment in providing your response.
[2025-04-29 14:51] VITALS: BP 101/73
[2025-04-29] MEDS: SEROQUEL 25 MG PO (17:15)
[2025-04-29 23:00] VITALS: BP 127/77
[2025-04-30 07:00] VITALS: BP 144/86
[2025-04-30] MEDS: LAMICTAL 150 MG PO ×2 (07:43→21:25)
[2025-04-30] MEDS: LEXAPRO 10 MG PO (07:44)
[2025-04-30] MEDS: PROTONIX 40 MG PO (07:44)
[2025-04-30] MEDS: PEPCID 20 MG PO (07:44)
[2025-04-30] MEDS: SYMMETREL 100 MG PO ×2 (07:44→21:26)
[2025-04-30] MEDS: COLACE 100 MG PO (07:45)
[2025-04-30] MEDS: HEPARIN 5000 UNITS SC ×2 (07:45→21:26)
[2025-04-30] MEDS: KEFLEX 500 MG PO ×4 (07:45→21:25)
[2025-04-30] MEDS: EXELON PATCH 4.6 MG TRANSDERM (07:45)
[2025-04-30] MEDS: SINEMET 25-100 1 TABLET PO ×3 (07:49→15:21)
--- NOTE | 2025-04-30 08:22 | W.PN.HOSP.TC ---
Today's Communication/Plan
-
Convulsive Syncope versus Seizure; neurology consulted -- more likely to be convulsive syncope
See plan
Assessment / Plan
Assessment / Plan
Physical Exam
General: No Apparent Distress
HEENT: Moist Mucous Membranes
Respiratory: Clear to Auscultation and Non Labored Respirations Bilaterally
Cardiac: Regular Rhythm, S1/S2
GI: Soft, Nondistended, Normal Bowel Sounds and Other (urination urge when suprapubic area palpated)
Neuro: Awake, Alert, Oriented and Tremors (PD)
Psych: Calm and Confused
Assessment/Plan
Patient is in [facility] for the last 2 months. She was initially with her son but was having a hard time especially with night care so moved up to [facility]. She has dementia and Parkinson disease. She normally able to communicate her needs but recently,
she was having a very low volume speech which is unusual for her and she was talking incomprehensible words to her son, her speech later improved to baseline. No dysphagia but she is pretty much wheelchair-bound. She was sent into the hospital
because of lethargy and generalized weakness.
#Presentation with Lethargy and Weakness
#Sepsis present on admission-patient was febrile at alf,she is tachycardic here, and white count was 10.9. Suspected source tract.
#Change in mental status with more lethargy and sleepiness-suspect secondary to toxic metabolic encephalopathy
#Complicated Urinary Tract Infection
#Bacteremia due to Proteus
#History of UTI
#Neurogenic bladder, chronic cystitis, left hydro nephrosis due to reflex on the recent cystoscopy
#History of bladder cancer status post TURBT - with no recurrence on recent cystoscopy
-History of chronic hematuria secondary to chronically inflamed bladder
-Switch previously Ceftriaxone to Cephalexin and continue Cephalexin for a total 7 days -- 6 more days; Day 1 of antibiotics was 04/26/25
-Follow repeat blood cultures
-Continue with IV fluids till oral intake is adequate
-Monitor bladder scans to make sure she is evacuating completely.
-Patient has been incontinent of urine, she has been having recurrent urinary issues and she was supposed to get a urodynamic study which got postponed to July 2025 because of her hospitalization and cancellation of her appointment.
-Appreciate urology: no Le Catheter at this time as it would only exacerbate bleeding/discomfort/etc at this point
-After completion of antibiotic course, start Methenamine 1 gram bid for prophylaxis
-Outpatient f/u with Dr. Irving to continue evaluation and urodynamics
#Acute Hypoxia - RESOLVED
-Resolved quickly. Suspect atelectasis.
-COVID flu negative
-Chest x ray negative
#Hypernatremia
-D5W IV fluids were given with resolution of hypernatremia
-Monitor BMP
-Dietary and Speech consults to ensure adequate oral intake
#HUEY suspected prerenal. Rule out obstructive uropathy
-cr 1.9-improved to 1.4 to 1.1. Baseline 0.8
-fluids continued
-obtain renal US
#Parkinson's disease
#Dementia with mood disturbance
-amantadine and carbidopa-levodopa continued
-Escitalopram continued
-Lamictal continued
-rivastigmine
#Convulsive Syncope
-Neurologist consulted on 04/30/25
-Rotigotine added
#GERD
-PPI continued
#Osteoporosis
-Fosamax continued
#Underweight
DVT Prophylaxis: SCDs. Heparin subq.
Code Status: Full code
Anticipated Discharge: Within 24 hours
Subjective/Interval History
-
Date of Service: April 30, 2025
Patient was seen and examined. She denied any new significant complaints, except that she had a convulsive episode later in the day.
Objective Data
-
Vital Signs:
Vital Signs
Temp Pulse Resp BP Pulse Ox
97.7 F 75 20 127/77 94
04/29/25 23:00 04/29/25 23:00 04/29/25 23:00 04/29/25 23:00 04/29/25 23:00
I&O
04/29/25 04/30/25 05/01/25
06:59 06:59 06:59
Intake Total 1900 / 1900 1320 / 1320
Output Total 250 / 250
Balance 1650 / 1650 1320 / 1320
[2025-04-30 12:09] VITALS: BP 114/67; PULSE 78
[2025-04-30 13:12] LABS: Hematocrit 32.3 % (37.0-47.0); Hemoglobin 10.6 g/dL (12.0-16.0); Mean Corp Hgb Conc. 32.8 g/dL (33.0-37.0); Mean Corpuscular Volume 88.7 fL (81.0-99.0); Platelet Count 354 10^3/uL (130-400); Red Cell Dist. Width 13.6 % (11.5-14.5)
--- NOTE | 2025-04-30 13:32 | CON.NEURO4 ---
Addendum entered and electronically signed by Alok Ward MD 04/30/25 15:33:
Studies reviewed.
I have personally examined the patient. I reviewed and agree with the SHOE SALESPERSON's Note.
My addenda:
Awake, interactive. Closes eyes after 3 seconds of interaction no acute distress.
Speech intact.
Follows 2-step requests w/ difficulty. Distal high amplitude with action tremor.
Extra-ocular movements grossly intact.
Facial movements full and symmetric. Hearing intact to normal conversational volume.
Normal UE movements bilaterally.
Neck: full ROM.
Chest: no dyspnea
Heart: no JVD
Ext: (-) Clubbing, (-) Cyanosis, (-) Edema
IMPRESSIONS/RECOMMENDATIONS:
Abrupt onset of change in mental status with the patient having had longstanding history of freezing episodes previously treated with by the use of midodrine, abdominal binder, DEMARCUS stockings, increased salt intake
Check EEG, completed and does not demonstrate seizure activity
No indication at this time for antiseizure medication
Patient should have continued orthostatic blood pressures performed
Maintain midodrine and increase if the patient has systolic blood pressures while seated less than 90. Remediation of supine hypertension may be by having the patient elevate head by 30 degrees
Continue carbidopa/levodopa
Continue amantadine
Add rotigotine 1 mg
D/W patient / family
All questions answered.
Will continue to follow patient, as needed.
Original Note:
Consultation - Neurology 4
-
CONSULTING PHYSICIAN: Alok Ward MD
REFERRING PHYSICIAN: Hospitalists/Dr. Mullins
DICTATED BY: JAMES Padilla
DATE/TIME OF REQUEST: 04/30/25
DATE/TIME OF CONSULTATION: 04/30/25
Reason for Consultation: Concern for seizure
History of Present Illness:
This is a 70-year-old female who has presented to the hospital on 04/26/25 with report of a change in mental status, lethargy, refusing to eat, and hypophonia and was found to have a urinary tract infection and bacteremia due to Proteus. Patient
was set for discharge back to [facility] today when she had a seizure-like event. Per patient's son a bedside he reports that she has had numerous similar episodes previously starting in February 2025. He notes that when she stands up or has been
standing for 30 seconds, her entire body goes completely stiff, tremulous, eyes are open, and she starts to fall/but has always been caught. He notes that they have attributed these episodes to orthostatic hypotension. She is typically on midodrine
2.5mg two or three times a day. She has tried an abdominal binder and DEMARCUS stockings in the past that have not helped. Today (04/30/25) while working with physical therapy, she was standing and became stiff, rigid, and tremulous. Her blood pressure
was notably low during this episode. She returned to baseline once she was laid in bed. Routine EEG is negative for seizure. Patient currently denies any headache, dizziness, vision changes, new speech changes, swallowing difficulty, numbness, and
focal weakness. Her son reports that she is followed by Neurology Dr. Lovelace as an outpatient for Parkinson's disease and orthostasis. She was recently hospitalized at [facility] and they reduced the doses of her carbidopa-levodopa and
amantadine. Since then he notes that her tremors have been significantly worse.
Past Medical History: Parkinson's disease, dementia, HTN, HLD, orthostatic hypotension, bladder cancer, chronic hematuria, depression, anxiety, GERD, osteoporosis, ambulatory dysfunction
Surgical History: TURBT, two recent cystoscopies with L ureteroscopy, , eye surgery
Family History: Mother- stroke.
Social History: Denies tobacco, alcohol, and illicit drug use.
Allergies: No known allergies.
Home Medications: See below.
Review of Symptoms:
Patient denies any fever, headache, chest pain, shortness of breath, GI or symptoms.
�Per the HPI.�All systems are reviewed negative except above.
Physical Exam:
The patient is afebrile, abdomen is nondistended, breathing is unlabored, skin is warm and dry, no edema.
Neurologic Examination:
The patient is drowsy, opens eyes to voice. She is oriented x3. Poor historian. She is able to follow commands and answer questions appropriately. There is no aphasia. Speech is hypophonic and mildly dysarthric. On cranial nerve assessment, pupils
are 3 mm bilateral, round and reactive to light and accommodation. Visual castellon are full. Extraocular movements are reduced with upgaze. Endpoint nystagmus in all directions, beating upward. Facial sensations are intact and bilaterally symmetrical,
there is no facial asymmetry. Hearing is intact bilaterally to normal conversation volume. Tongue palate and uvula are midline. Sternocleidomastoid strengths are full bilaterally. Motor strengths are 5/5 bilateral upper and lower extremities on
medical research [place] scale. There is no drift. There is an arrhythmic high amplitude tremor in all extremities. Deep tendon reflexes are 2+ bilateral upper and lower extremities and Babinski is absent bilaterally. There was no extinction noted
on double simultaneous stimulation. Coordination is intact by finger to nose bilaterally.
Lab Results: See below.
Neuro Imaging:
1. CT Head 04/27/25: No acute intracranial abnormalities. Findings again seen compatible with diffuse cortical atrophy with mild nonspecific white matter changes.
2. EEG 04/30/25: Negative for seizure, official read pending.
Differentials for the patient's presentation include:
1. Recurrent episode of shaking today is likely due to convulsive syncope in the setting of Parkinson's disease with known orthostatic hypotension. Very low concern for seizure.
2. Urinary tract infection.
3. Dementia.
Patient has the following risk factors for their symptoms: PD, orthostasis
Recommendations:
-Resume home midodrine.
-Start rotigotine patch 1mg daily until she can been seen by Dr. Lovelace as an outpatient for further adjustment of her PD medications/better control of her tremor.
-No role for antiseizure medication or further neurological imaging.
-Follow-up with Dr. Lovelace as an outpatient as scheduled.
Discussed patient care with: Dr. Ward, the patient, patient's son
Vital Signs and Labs
-
Vital Signs and Labs:
Vital Signs
Temp Pulse Resp BP Pulse Ox
98.6 F 80 16 144/86 95
04/30/25 07:00 04/30/25 07:00 04/30/25 07:00 04/30/25 07:00 04/30/25 07:00
Lab Results
04/30/25 13:04
04/30/25 13:04
Sodium 145 mmol/L (135-145) 04/30/25 13:04
Potassium 3.9 mmol/L (3.5-5.1) 04/30/25 13:04
BUN 23 mg/dl (7-17) H 04/30/25 13:04
Glucose 109 mg/dl (70-99) H 04/30/25 13:04
Calcium 8.9 mg/dl (8.4-10.2) 04/30/25 13:04
Phosphorus 2.8 mg/dl (2.5-4.5) 04/30/25 13:04
Medications
-
Active Medications
Generic Name Dose Route Start Last Admin
Trade Name Freq PRN Reason Stop Dose Admin
Acetaminophen 650 mg 04/26/25 22:16
Acetaminophen 325 Mg Tablet PO 05/24/25 22:15
Q4HPRN PRN
mild pain/[place]/temp> 100.4F
Amantadine HCl 100 mg 04/27/25 08:00 04/30/25 07:44
Amantadine 100 Mg Capsule PO 05/25/25 07:59 100 mg
BID AKBAR Administration
Bisacodyl 10 mg 04/26/25 22:16
Bisacodyl 10 Mg Rectal Suppository RECTAL 05/24/25 22:15
[id number] PRN
constipation
Carbidopa/Levodopa 1 tablet 04/27/25 07:30 04/30/25 12:20
Carbidopa (25 Mg)/Levodopa (100 Mg) Regular Release Tablet PO 05/25/25 07:29 1 tablet
AC AKBAR Administration
Cephalexin HCl 500 mg 04/29/25 13:00 04/30/25 12:20
Cephalexin 500 Mg Capsule PO 500 mg
QID AKBAR Administration
Docusate Sodium 100 mg 04/27/25 08:00 04/30/25 07:45
Docusate Sodium 100 Mg Capsule PO 05/25/25 07:59 100 mg
DAILY AKBAR Administration
Escitalopram Oxalate 10 mg 04/27/25 08:00 04/30/25 07:44
Escitalopram 10 Mg Tablet PO 05/25/25 07:59 10 mg
DAILY AKBAR Administration
Famotidine 20 mg 04/27/25 08:00 04/30/25 07:44
Famotidine 20 Mg Tablet PO 05/25/25 07:59 20 mg
DAILY AKBAR Administration
Heparin Sodium 5,000 units 04/28/25 20:00 04/30/25 07:45
Heparin 5,000 Units/Ml 1 Ml Vial SC 05/26/25 19:59 5,000 units
Q12 AKBAR Administration
Lamotrigine 150 mg 04/27/25 08:00 04/30/25 07:43
Lamotrigine 100 Mg Tablet PO 05/25/25 07:59 150 mg
BID AKBAR Administration
Pantoprazole Sodium 40 mg 04/27/25 08:00 04/30/25 07:44
Pantoprazole 40 Mg Delayed Release Tablet PO 05/25/25 07:59 40 mg
DAILY AKBAR Administration
Polyethylene Glycol 17 grams 04/26/25 22:16
Polyethylene Glycol Powder 17 Grams Packet PO 05/24/25 22:15
DAILYPRN PRN
constipation
Quetiapine Fumarate 25 mg 04/27/25 18:00 04/29/25 17:15
Quetiapine 25 Mg Tablet PO 05/25/25 17:59 25 mg
QPM AKBAR Administration
Rivastigmine 4.6 mg 04/27/25 08:00 04/30/25 07:45
Rivastigmine (Exelon) 4.6 Mg Patch TRANSDERM 05/25/25 07:59 4.6 mg
DAILY AKBAR Administration
Senna/Docusate Sodium 1 tablet 04/26/25 22:16
Docusate W/Senna (Diane-Colace) Tablet PO 05/24/25 22:15
BIDPRN PRN
constipation
Sodium Chloride 0 flush 04/26/25 23:00
Sodium Chloride 0.9% (Flush) Syringe IV 05/24/25 22:59
PER PROTOCOL AKBAR
Home Medications
�Medication �Instructions �Recorded
alendronate 70 mg tablet 70 mg PO ELIZALDE OSTEOPEROSIS 02/01/25
carbidopa 25 mg-levodopa 100 mg 1 tab PO AC Neurological Condition 02/01/25
tablet
therapeutic multivitamin 1 tab PO DAILY Supplement 02/01/25
amantadine HCl 100 mg capsule 100 mg PO BID Neurological 03/25/25
Condition
melatonin 5 mg disintegrating 5 mg PO HS Sleep 03/25/25
tablet
quetiapine 25 mg tablet 25 mg PO QPM Neurological Condition 03/25/25
famotidine 20 mg tablet 20 mg PO DAILY #0 tabs 03/27/25
docusate sodium 100 mg capsule 100 mg PO DAILY Constipation 04/26/25
escitalopram oxalate 10 mg tablet 10 mg PO DAILY Mental Health 04/26/25
lamotrigine 150 mg tablet 150 mg PO BID Neurological 04/26/25
Condition
pantoprazole 40 mg tablet,delayed 40 mg PO DAILY Gastrointestinal 04/26/25
release Issue
rivastigmine 4.6 mg/24 hour 1 patch transdermal DAILY 04/26/25
transdermal patch Neurological Condition
[2025-04-30 13:36] LABS: ALT (SGPT) < 10 U/L (0-35); AST (SGOT) 17 U/L (14-36); Albumin 3.2 g/dl (3.5-5.0); Alkaline Phosphatase 95 U/L (38-126); Blood Urea Nitrogen 23 mg/dl (7-17); Calcium 8.9 mg/dl (8.4-10.2); Carbon Dioxide 23 mmol/L (22-30); Chloride 113 mmol/L (98-107); Estimated Creatinine Clearance 43 ml/min; Glucose 109 mg/dl (70-99); Magnesium 2.3 mg/dl (1.6-2.3); Potassium 3.9 mmol/L (3.5-5.1); Sodium 145 mmol/L (135-145); Total Protein 6.6 g/dl (6.3-8.2); eGFR > 60.00
--- NOTE | 2025-04-30 14:19 | W.PN.ID1 ---
Addendum entered and electronically signed by Briseida Kwan MD 04/30/25 15:42:
I saw and evaluated the patient. I reviewed the resident�s note and agree with findings and plan as documented in the resident�s note.
SOAP:
afebrile
bp stable
getting EEG
Objective
Constitutional: No Acute Distress
Cardiovascular: Regular Rate and S1/S2; Negative Murmur or Rub
Pulmonary: Clear and Symmetric; Negative Wheezes or Rales
Gastrointestinal: Soft, Non Tender, Non Distended and Normal Bowel Sounds
Genito-Urinary: No Suprapubic Tenderness
Skin: Warm and Dry; Negative Rash or Jaundice
labs reviewed
A&P
Complicated UTI due to Proteus
Bacteremia due to Proteus
HUEY - resolving
- repeat blood cultures are in progress - no growth to date
- continue keflex for a 7 day total course
- agree with methenamine as prophylaxis after course of keflex
- follow clinically
AW
Original Note:
Date of Service
Date of Service: April 30, 2025
Today's Communication
Continue Keflex 500mg PO qid for 6 more days (currently 04/30/25). Methenamine prophylaxis after.
Continue to follow
Assessment / Plan
A&P:
-Complicated UTI due to Proteus: Monitoring
-Bacteremia due to Proteus: Resolved
-HUEY: Resolved
UA obtained in the emergency department = 4+ blood, nitrite positive, leukocyte esterase 3+, greater than 100 urine RBC, 3+ albumin, urine WBCs obscured by RBCs - Positive for UTI
Patient was tachycardic, febrile with a temperature of 102.3 rectally, and had leukocytosis with WBCs of 10.9. Positive UA for UTI -sepsis secondary to UTI
Urine culture from 06/30/2015 positive for Klebsiella oxytoca
Urine culture from 02/01/2025 positive for Klebsiella pneumonia
Urine culture from 03/25/2025 positive for Streptococcus species
Repeat blood cultures negative for growth
Ceftriaxone discontinued
Creatinine back at baseline on 04/30/25
Continue Keflex 500mg PO qid for 6 more days (currently 04/30/25)
Methenamine prophylaxis after completion of Keflex abx course.
Continue to follow
Subjective / Review of Systems
Met with patient at the bedside. She is oriented to person place and time. She is pleasant in conversation but difficult to understand because of her soft manner speaking. It appears that her parkinsonism is not well-controlled at the moment.
She asked if she is going to be discharged today and I let her know that it was unlikely. Supportive counseling provided at the bedside. She believes that she is back at baseline.
Vital Signs / Physical Exam
Vital Signs
Vital Signs
Temp Pulse Resp BP Pulse Ox
98.6 F 80 16 144/86 95
04/30/25 07:00 04/30/25 07:00 04/30/25 07:00 04/30/25 07:00 04/30/25 07:00
Physical Exam
Constitutional: No Acute Distress and Cachetic
Cardiovascular: S1/S2; Negative Murmur, Rub or Gallop
Pulmonary: Clear; Negative Wheezes, Rales or Rhonchi
Gastrointestinal: Soft, Non Tender, Non Distended and Normal Bowel Sounds
Extremities: Negative Edema, Clubbing, Cyanosis or Erythema
Neurological: Awake, Alert, Oriented, AO x 3 and Other (Poorly controlled parkinsonism)
Psychological: Calm
Objective Data
Lab Data
Lab Results
04/30/25 13:04
04/30/25 13:04
Estimated Creat Clear 43 ml/min 04/30/25 13:04
Lactic Acid Cancelled 04/26/25 23:45
Total Bilirubin 0.5 mg/dl (0.2-1.3) 04/30/25 13:04
AST 17 U/L (14-36) 04/30/25 13:04
ALT < 10 U/L (0-35) 04/30/25 13:04
Alkaline Phosphatase 95 U/L (38-126) 04/30/25 13:04
Most recent labs reviewed.
Micro Results:
04/28/25 08:04 Blood Culture - Preliminary
Blood/Venous No Growth in 48 hours- Final report to follow
04/28/25 07:56 Blood Culture - Preliminary
Blood/Venous No Growth in 48 hours- Final report to follow
04/26/25 20:33 Urine Culture - Final
Urine Proteus mirabilis
04/26/25 19:54 Blood Culture - Final
Blood/Venous Proteus mirabilis
Gram Stain - Final
04/26/25 20:33 Blood Culture - Final
Blood/Venous Proteus mirabilis
Gram Stain - Final
04/27/25 05:49 MRSA Screen - Final
Nose No Methicillin Resistant Staphylococcus aureus isolated.
04/26/25 19:54 Influenza Types A & B (KALEB) - Final
Nasal Swab Negative for Influenza A & B, NAAT
Negative results must be combined with clinical observations
and patient history.
Nucleic Acid Amplification test (NAAT)performed on the
[employer] platform.
--- NOTE | 2025-04-30 14:39 | CM ---
Chart reviewed. Patient is a resident at [facility]. Neurology consulted for possible seizure episode.
Therapy recommending SNF. Previous CM note stated that [facility] will need patient would need to be able to stand and pivot with assist of one before returning. Per PT note, patient is an assist of 2 as of today and yesterday
Spoke w/ patient's son and DIL, aware that neurology was consulted and EEG. CM discussed rehab at d/c prior to returning [facility] the [facility]. Son stated patient has been in a w/c and don't think she needs to go to rehab, son stated patient's room is in
the same building as the rehab. Son stated he will talk to the [facility]' team as he prefers her to go back to the [facility] at d/c.
Plan: [facility] SNF vs return to [facility]
[2025-04-30 15:00] VITALS: BP 120/47
[2025-04-30] MEDS: NEUPRO 1 MG TRANSDERM (15:14)
--- NOTE | 2025-04-30 15:16 | EEG.RPT ---
Electroencephalogram Report
Recording
Date of EE04/30/25
Type of EEG: Routine
Length of EEG recordin minutes
Done with Video Recording: Yes
Patient Status: Inpatient
Recording Conditions: Awake and Drowsy
Hyperventilation Performed: No
Photic Stimulation Performed: Yes
Report
LESS THAN 1 HOUR REPORT
LESS THAN 1 HOUR EEG INTERPRETATION:
Mild to moderately abnormal EEG for age mild diffuse bihemispheric slowing
CLINICAL CORRELATION:
This study was suggestive of diffuse cortical dysfunction without focal abnormality. No seizures were recorded. If concerns remain regarding seizures, consideration for prolonged EEG recording may be given.
Clinical correlation is advised.
METHODS:
A 21 channel digitized electroencephalogram (EEG) was performed in the Clinical Neurophysiology Laboratory. The 10/20 international system of electrode placement was used with ECG and lateral/vertical eye movements recorded. The [employer] quantitative
measurement system was utilized.
QUALITY OF STUDY:
Good
ELECTROENCEPHALOGRAPHER IMPRESSION(S):
Background
Medium amplitude fairly to poorly organized anterior-posterior voltage gradient of theta maximal activity
There were no significant asymmetries of background activity noted.
Sleep
Drowsiness present
Photic Stimulation
Failed to activate the record
ECG
Normal sinus rhythm
--- NOTE | 2025-04-30 15:17 | W.PN.UPDATE ---
Update Note
Progress Note Update
I saw and evaluated the patient. I reviewed the resident�s note and agree with findings and plan as documented in the resident�s note.
SOAP:
afebrile
bp stable
getting EEG
Objective
Constitutional: No Acute Distress
Cardiovascular: Regular Rate and S1/S2; Negative Murmur or Rub
Pulmonary: Clear and Symmetric; Negative Wheezes or Rales
Gastrointestinal: Soft, Non Tender, Non Distended and Normal Bowel Sounds
Genito-Urinary: No Suprapubic Tenderness
Skin: Warm and Dry; Negative Rash or Jaundice
labs reviewed
A&P
Complicated UTI due to Proteus
Bacteremia due to Proteus
HUEY - resolving
- repeat blood cultures are in progress - no growth to date
- continue keflex for a 7 day total course
- agree with methenamine as prophylaxis after course of keflex
- follow clinically
[2025-04-30] MEDS: SEROQUEL 25 MG PO (17:10)
[2025-04-30 18:00] VITALS: BP 113/74; BP 127/73; PULSE 80; PULSE 82
[2025-04-30 23:44] VITALS: BP 112/61; BP 121/63; PULSE 62; PULSE 69
--- NOTE | 2025-05-01 08:00 | PTCARENOTE ---
Patient remains confused this AM, setting bed alarm off frequently. Staff attentive and offering assistance. Patient AAOx1, stating 'I'm ' and 'I'm planning my '. Bed alarm in place for safety.
[2025-05-01 08:11] VITALS: BP 163/76
[2025-05-01 08:31] VITALS: BP 104/56
--- NOTE | 2025-05-01 08:41 | W.PN.HOSP.TC ---
Today's Communication/Plan
-
Discharge today
Assessment / Plan
Assessment / Plan
Physical Exam
General: No Apparent Distress
HEENT: Moist Mucous Membranes
Respiratory: Clear to Auscultation Bilaterally
Cardiac: Regular Rhythm, S1/S2
GI: Soft, Nondistended, Normal Bowel Sounds and Other (urination urge when suprapubic area palpated)
Neuro: Awake, Alert, Oriented and Tremors (PD)
Psych: Calm and Confused
Assessment/Plan
Patient is in [facility] for the last 2 months. She was initially with her son but was having a hard time especially with night care so moved up to [facility]. She has dementia and Parkinson disease. She normally able to communicate her needs but recently,
she was having a very low volume speech which is unusual for her and she was talking incomprehensible words to her son, her speech later improved to baseline. No dysphagia but she is pretty much wheelchair-bound. She was sent into the hospital
because of lethargy and generalized weakness.
#Presentation with Lethargy and Weakness
#Sepsis present on admission-patient was febrile at [facility],she is tachycardic here, and white count was 10.9. Suspected source tract.
#Change in mental status with more lethargy and sleepiness-suspect secondary to toxic metabolic encephalopathy
#Complicated Urinary Tract Infection due to Proteus
#Bacteremia due to Proteus
#History of UTI
#Neurogenic bladder, chronic cystitis, left hydro nephrosis due to reflex on the recent cystoscopy
#History of bladder cancer status post TURBT - with no recurrence on recent cystoscopy
-History of chronic hematuria secondary to chronically inflamed bladder
-Switch previously Ceftriaxone to Cephalexin and continue Cephalexin for a total 7 days -- 5 more days; Day 1 of antibiotics was 04/26/25
-Follow repeat blood cultures
-Continue with IV fluids till oral intake is adequate
-Monitor bladder scans to make sure she is evacuating completely.
-Patient has been incontinent of urine, she has been having recurrent urinary issues and she was supposed to get a urodynamic study which got postponed to July 2025 because of her hospitalization and cancellation of her appointment.
-Appreciate urology: no Le Catheter at this time as it would only exacerbate bleeding/discomfort/etc at this point
-After completion of antibiotic course, start Methenamine 1 gram bid for prophylaxis
-Outpatient f/u with Dr. Irving to continue evaluation and urodynamics
#Acute Hypoxia - RESOLVED
-Resolved quickly. Suspect atelectasis.
-COVID flu negative
-Chest x ray negative
#Hypernatremia
-D5W IV fluids were given with resolution of hypernatremia
-Monitor BMP
-Dietary and Speech consults to ensure adequate oral intake
#HUEY suspected prerenal. Rule out obstructive uropathy
-cr 1.9-improved to 1.4 to 1.1 to 1.0. Baseline 0.8
-fluids continued
-Renal U/S noted
#Parkinson's disease
#Dementia with mood disturbance
-amantadine and carbidopa-levodopa continued
-Escitalopram continued
-Lamictal continued
-rivastigmine
#Convulsive Syncope
-Neurologist consulted on 04/30/25
-Rotigotine added
-Patient may need Midodrine and increase if the patient has systolic blood pressures while seated less than 90 mmHg -- remediation of supine hypertension may be by having the patient elevate head by 30 degrees
#Unwitnessed Fall 05/01/25
-Suspected from balance issues/confusion/Parkinson's Disease
-CT Head and CT C-Spine without any fractures or acute abnormalities
#GERD
-PPI continued
#Osteoporosis
-Fosamax continued
#Underweight
DVT Prophylaxis: SCDs. Heparin subq.
Code Status: Full code
More than 30 minutes spent in discharge including
Final examination of the patient
Summarizing hospital stay
Instructions for continuing care to all relevant caregivers
Preparation of discharge records, prescriptions, and referral forms
Total time spent (in minutes): 45
Anticipated Discharge: Today
Subjective/Interval History
-
Date of Service: May 01, 2025
Patient was seen and examined. She had an unwitnessed fall this morning.
Objective Data
-
Vital Signs:
Vital Signs
Temp Pulse Resp BP Pulse Ox
98.0 F 70 16 104/56 96
05/01/25 08:31 05/01/25 08:31 05/01/25 08:31 05/01/25 08:31 05/01/25 08:31
I&O
04/30/25 05/01/25 05/02/25
06:59 06:59 06:59
Intake Total 1320 / 1320 240 / 240
Balance 1320 / 1320 240 / 240
--- NOTE | 2025-05-01 08:45 | PTCARENOTE ---
Bed alarm sounding, staff responding immediately. Patient found seated on floor with back up against side of bed and legs out in front of her. Event was unwitnessed. Pads from the bed were under patient on floor, appears as if patient slid from bed.
Does not appear like patient hit head, patient also denies hitting head. No injuries or pain noted. VSS. Dr. Mullins notified. Patient ordered CT of head and spine. Bed alarm was on and working properly at time of event. Non slip socks were in
place. Bed was in low position. Will maintain bed alarm for safety.
--- NOTE | 2025-05-01 10:31 | W.PN.ID1 ---
Addendum entered and electronically signed by Briseida Kwan MD 05/01/25 12:23:
I saw and evaluated the patient. I reviewed the resident�s note and agree with findings and plan as documented in the resident�s note.
SOAP:
afebrile
bp stable
no complaints
Objective
Constitutional: No Acute Distress, soft spoken
Cardiovascular: Regular Rate and S1/S2; Negative Murmur or Rub
Pulmonary: Clear and Symmetric; Negative Wheezes or Rales
Gastrointestinal: Soft, Non Tender, Non Distended and Normal Bowel Sounds
Genito-Urinary: No Suprapubic Tenderness
Skin: Warm and Dry; Negative Rash or Jaundice
labs reviewed
A&P
Complicated UTI due to Proteus
Bacteremia due to Proteus
HUEY - resolving
- repeat blood cultures are in progress - no growth to date
- continue keflex for a 7 day total course
- agree with methenamine as prophylaxis after course of keflex
- stable for dc from ID perspective
AW
Original Note:
Date of Service
Date of Service: May 01, 2025
Today's Communication
Continue Keflex 500mg PO qid for 5 more days (currently 05/01/25)
Stable for DC from ID perspective
Assessment / Plan
A&P:
-Complicated UTI due to Proteus: Resolved
-Sepsis Secondary to UTI: Resolved
-Bacteremia due to Proteus: Resolved
-HUEY: Resolved
UA obtained in the emergency department = 4+ blood, nitrite positive, leukocyte esterase 3+, greater than 100 urine RBC, 3+ albumin, urine WBCs obscured by RBCs - Positive for UTI
Patient was tachycardic, febrile with a temperature of 102.3 rectally, and had leukocytosis with WBCs of 10.9. Positive UA for UTI -sepsis secondary to UTI
Repeat blood cultures negative for growth
Ceftriaxone discontinued
Creatinine back at baseline on 04/30/25
Continue Keflex 500mg PO qid for 5 more days (currently 05/01/25)
Methenamine prophylaxis after completion of Keflex abx course.
Stable for DC from ID perspective
Subjective / Review of Systems
Met with patient at the bedside. She remains oriented to person place and time. She is seen sitting in a chair eating breakfast with the help of a aide. At 1 point she managed to take the fork for herself and started to feed herself her [place]
toast. She is more alert today and able to participate actively with somewhat improved dyskinesia. She is kind and pleasant in discussion and hopes that her family will visit her today. She offers no complaints at the present time. She does not
have any shortness of breath, chest tightness, or chest pain. She denies any nausea, vomiting, or diarrhea.
Vital Signs / Physical Exam
Vital Signs
Vital Signs
Temp Pulse Resp BP Pulse Ox
98.0 F 70 16 104/56 96
05/01/25 08:31 05/01/25 08:31 05/01/25 08:31 05/01/25 08:31 05/01/25 08:31
Physical Exam
Constitutional: No Acute Distress and Comfortable
Head: Normocephalic
Cardiovascular: S1/S2; Negative Murmur, Rub or Gallop
Pulmonary: Clear and Symmetric; Negative Wheezes, Rales or Rhonchi
Gastrointestinal: Soft, Non Tender, Non Distended and Normal Bowel Sounds
Extremities: Negative Edema, Clubbing, Cyanosis or Erythema
Neurological: Awake, Alert, Oriented, AO x 3 and Other (Improvement of dyskinesia from yesterday)
Psychological: Calm
Objective Data
Lab Data
Lab Results
04/30/25 13:04
04/30/25 13:04
Estimated Creat Clear 43 ml/min 04/30/25 13:04
Lactic Acid Cancelled 04/26/25 23:45
Total Bilirubin 0.5 mg/dl (0.2-1.3) 04/30/25 13:04
AST 17 U/L (14-36) 04/30/25 13:04
ALT < 10 U/L (0-35) 04/30/25 13:04
Alkaline Phosphatase 95 U/L (38-126) 04/30/25 13:04
Most recent labs reviewed.
Micro Results:
04/28/25 08:04 Blood Culture - Preliminary
Blood/Venous No Growth in 72 hours- Final report to follow
04/28/25 07:56 Blood Culture - Preliminary
Blood/Venous No Growth in 72 hours- Final report to follow
04/26/25 20:33 Urine Culture - Final
Urine Proteus mirabilis
04/26/25 19:54 Blood Culture - Final
Blood/Venous Proteus mirabilis
Gram Stain - Final
04/26/25 20:33 Blood Culture - Final
Blood/Venous Proteus mirabilis
Gram Stain - Final
04/27/25 05:49 MRSA Screen - Final
Nose No Methicillin Resistant Staphylococcus aureus isolated.
04/26/25 19:54 Influenza Types A & B (KALEB) - Final
Nasal Swab Negative for Influenza A & B, NAAT
Negative results must be combined with clinical observations
and patient history.
Nucleic Acid Amplification test (NAAT)performed on the
[employer] platform.
[2025-05-01] MEDS: NEUPRO 1 MG TRANSDERM (11:11)
[2025-05-01] MEDS: EXELON PATCH 4.6 MG TRANSDERM (11:11)
[2025-05-01] MEDS: SINEMET 25-100 1 TABLET PO ×2 (11:12→16:54)
[2025-05-01] MEDS: PEPCID 20 MG PO (11:12)
[2025-05-01] MEDS: LEXAPRO 10 MG PO (11:12)
[2025-05-01] MEDS: PROTONIX 40 MG PO (11:12)
[2025-05-01] MEDS: COLACE 100 MG PO (11:12)
[2025-05-01] MEDS: SINEMET 25-100 PO (11:12)
[2025-05-01] MEDS: KEFLEX 500 MG PO ×3 (11:12→16:54)
[2025-05-01] MEDS: LAMICTAL 150 MG PO (11:13)
[2025-05-01] MEDS: HEPARIN 5000 UNITS SC (11:13)
[2025-05-01] MEDS: SYMMETREL 100 MG PO (11:19)
--- NOTE | 2025-05-01 13:25 | CM ---
Chart reviewed. Neuro consulted yesterday. EEG yesterday.
Per hospitalist, patient can d/c today
Spoke w/ patient's son, Vasquez, aware of d/c today. Confirmed that he would like for patient to return to her memory care floor at [facility].
CM left message w/ Fuentes/network administrator at [facility] regarding patient's return and if patient has to go to rehab
Spoke w/ Aide/nursing at [facility], reviewed therapy evaluation, patient is currently an assist of 2. Per Aide, patient will need to be an assist of 1 for her to be able to return to personal care level. CM asked if Vasquez can be called to inform
him of this.
Aide stated she left Jesus message informing that patient needs to be skilled before returning to memory care. Will re-attempt call.
Confirmed w/ Katya/[facility] director that patient will likely admit to skilled rehab today
Patient will need ambulance transport
[facility]
Report: [phone] (2nd floor)

Plan: D/c to [facility] today
[2025-05-01 15:11] VITALS: BP 116/68
[2025-05-01 15:14] VITALS: BP 110/62; BP 116/68; PULSE 78; PULSE 79
[2025-05-01] MEDS: SEROQUEL 25 MG PO (16:54)
--- NOTE | 2025-05-01 17:13 | PTCARENOTE ---
Report called in to Abida Reynolds.
--- NOTE | 2025-05-01 17:17 | PTCARENOTE ---
IV access removed.
== END 2025-05-01 19:12 | DRG 871 ==
LOC: 4 WEST ACU 22:05
PROVIDERS: Registered Nurse; ADMITTING PHYSICIAN Hospitalist; ATTENDING PHYSICIAN Hospitalist; CONSULT PHYSICIAN Internal Medicine Infectious Disease; CONSULT PHYSICIAN Psychiatry & Neurology Neurology; CONSULT PHYSICIAN Specialist; EMERGENCY PHYSICIAN Emergency Medicine; FAMILY PHYSICIAN Family Medicine
DX: A41.9 Sepsis, unspecified organism (principal); G92.8 Other toxic encephalopathy; F02.84 Dementia in other diseases classified elsewhere, unspecified severity, with anxiety; F02.83 Dementia in other diseases classified elsewhere, unspecified severity, with mood disturbance; N17.9 Acute kidney failure, unspecified; N13.30 Unspecified hydronephrosis; J98.11 Atelectasis; E87.0 Hyperosmolality and hypernatremia; Z68.1 Body mass index [BMI] 19.9 or less, adult; N30.21 Other chronic cystitis with hematuria; E86.0 Dehydration; G20.A1 Parkinson's disease without dyskinesia, without mention of fluctuations; R09.02 Hypoxemia; B96.4 Proteus (mirabilis) (morganii) as the cause of diseases classified elsewhere; K21.9 Gastro-esophageal reflux disease without esophagitis; R63.6 Underweight; M81.0 Age-related osteoporosis without current pathological fracture; I95.1 Orthostatic hypotension; K59.00 Constipation, unspecified; N31.9 Neuromuscular dysfunction of bladder, unspecified; B96.89 Other specified bacterial agents as the cause of diseases classified elsewhere; I10 Essential (primary) hypertension; N39.498 Other specified urinary incontinence; Z11.52 Encounter for screening for COVID-19; Z79.899 Other long term (current) drug therapy; Z85.51 Personal history of malignant neoplasm of bladder; Z87.440 Personal history of urinary (tract) infections; Z87.891 Personal history of nicotine dependence
CPT/HCPCS: 70450; 71046; 72125; 76770; 80048; 80053; 81003; 81015; 82040; 83605; 83735; 84100; 85025; 85027; 86850; 86900; 86901; 87040; 87070; 87077; 87086; 87154; 87186; 87205; 87502; 87811; 92610; 95813; 96361; 96374; 97167; 97530; 97535; 99285

== ENCOUNTER → 2025-05-05 09:22 | Outpatient (REF) | payer MEDICARE, OTHER, SELFPAY ==
[2025-05-05 10:00] LABS: Hematocrit 31.2 % (37.0-47.0); Hemoglobin 10.2 g/dL (12.0-16.0); Mean Corp Hgb Conc. 32.7 g/dL (33.0-37.0); Mean Corpuscular Volume 90.4 fL (81.0-99.0); Nucleated Red Blood Cells % 0 %; Platelet Count 327 10^3/uL (130-400); Red Cell Dist. Width 14.1 % (11.5-14.5)
[2025-05-05 10:12] LABS: Blood Urea Nitrogen 19 mg/dl (7-17); Calcium 9.0 mg/dl (8.4-10.2); Carbon Dioxide 30 mmol/L (22-30); Chloride 106 mmol/L (98-107); Glucose 109 mg/dl (70-99); Potassium 4.7 mmol/L (3.5-5.1); Sodium 140 mmol/L (135-145); eGFR > 60.00
== END ==
LOC: OLABP 09:22
PROVIDERS: ATTENDING PHYSICIAN Family Medicine
DX: N17.9 Acute kidney failure, unspecified (principal); G20.A1 Parkinson's disease without dyskinesia, without mention of fluctuations; R31.9 Hematuria, unspecified
CPT/HCPCS: 36415; 80048; 85025

== ENCOUNTER → 2025-06-04 10:35 | Outpatient (REF) | payer MEDICARE, OTHER, SELFPAY | LOC: OLABP 10:35 | PROVIDERS: ATTENDING PHYSICIAN Nurse Practitioner Gerontology | DX: N39.0 Urinary tract infection, site not specified (principal) | CPT/HCPCS: 36415 ==

== ENCOUNTER → 2025-06-11 14:20 | Outpatient (REF) | payer MEDICARE, OTHER, SELFPAY ==
[2025-06-11 16:22] LABS: Urine Character Cloudy (Clear)
[2025-06-11 16:57] LABS: Urine Red Blood Cell 16-20 /HPF (0-2); Urine White Cell >100 /HPF (0-5)
== END ==
LOC: OLABP 14:20
PROVIDERS: ATTENDING PHYSICIAN Nurse Practitioner Gerontology
DX: N39.0 Urinary tract infection, site not specified (principal)
CPT/HCPCS: 81003; 81015; 87077; 87086; 87186

== ENCOUNTER 2025-06-25 21:20 | Inpatient (IN) | payer MEDICARE, OTHER, SELFPAY ==
[2025-06-25] VITALS (8 sets, daily range): BP systolic 98–137; BP diastolic 65–91; BMI 17.6
[2025-06-25 15:37] LABS: Hematocrit 35.5 % (37.0-47.0); Hemoglobin 11.7 g/dL (12.0-16.0); Mean Corp Hgb Conc. 33.0 g/dL (33.0-37.0); Mean Corpuscular Volume 84.9 fL (81.0-99.0); Nucleated Red Blood Cells % 0 %; Platelet Count 367 10^3/uL (130-400); Red Cell Dist. Width 15.9 % (11.5-14.5)
[2025-06-25 15:54] LABS: ALT (SGPT) < 10 U/L (0-35); AST (SGOT) 8 U/L (14-36); Albumin 4.2 g/dl (3.5-5.0); Alkaline Phosphatase 129 U/L (38-126); Blood Urea Nitrogen 75 mg/dl (7-17); Glucose 133 mg/dl (70-99); Potassium 5.3 mmol/L (3.5-5.1); Total Protein 8.4 g/dl (6.3-8.2); eGFR 23.53
[2025-06-25 16:05] LABS: Calcium 10.4 mg/dl (8.4-10.2); Carbon Dioxide 17 mmol/L (22-30); Chloride 103 mmol/L (98-107); Sodium 134 mmol/L (135-145)
--- NOTE | 2025-06-25 18:48 | ED.GENMED ---
History of Present Illness
General
Chief Complaint: Weakness
Time Seen by Provider: 06/25/25 17:52
Nursing documentation reviewed up to this point in time: agreed with
History of Present Illness
History of Present Illness:
70-year-old female presents the ER for evaluation of altered mental status. Patient came by EMS. Her son is present at bedside to provide additional history as patient has dementia and is unable to provide any relevant history. He states that all
day today she has been having an abnormal breathing pattern and has not recognized him. He states that over the past several months she has had a progressive decline in her mentation. She has had very frequent urinary tract infections, nearly
almost monthly. She just completed antibiotics this week for recent infection. She also has a prior history of bladder cancer, José Miguel, and depression. No reported fever or recent sick contacts. No reported recent trauma.
Past History
Past History
ED Past Medical History: Cancer (hx bladder cancer, no malignancy noted on cystoscopy on 03/26/25), GERD, Psychiatric (anxiety, depression, early dementia) and Other (Parkinsons disease)
Social History
Tobacco: Non-smoker
Alcohol: None
Personal:
Living: prison
Employment: Employed
Review of Systems
Review of Systems
Allergies reviewed?: Yes
Phy Exam
Physical Exam
Physical Exam:
Patient is resting comfortably, preferring to keep eyes closed but opens eyes to verbal stimuli, abnormal breathing pattern noted with occasional breath-holding spells, head is NCAT, PERRL, EOMI mucous membranes dry, conjunctiva pink, heart regular
rate and rhythm without murmurs or ectopy, lungs are clear to auscultation without wheezes rales or rhonchi, no JVD, abdomen is soft and nontender on palpation, extremities without edema, GCS is 14, spontaneously moves all extremities without focal
deficit
Course
Orders/Labs/Results
Orders:
Orders
06/25/25 Breakfast
Regular
At Your Request: Non-Participating
Does patient need a safe tray?: No
06/25/25 15:29
Complete Blood Count/With Diff Urgent
Comprehensive Metabolic Panel Urgent
06/25/25 18:18
CT Head W/o Iv Contrast Urgent
Comment:
Reason For Exam: altered mental status
CR Chest Portable - 1 View Urgent
Comment:
Reason For Exam: weakness
Reason Study Needs to be Portable: Unable to Transport
06/25/25 18:27
COVID-19 Antigen Urgent
Source: Nasal Swab
Influenza A+B Rapid Molecular Urgent
FRANKLYN Source: Nasal Swab
Specimen Description:
06/25/25 18:52
Electrocardiogram (*1) Urgent
Reason for Study: Shortness of Breath
EKG- Treatment ONCE
0.9% Sodium Chloride 1000 ml [Nss] 1,000 ml IV BOLUS
06/25/25 19:49
Urinalysis Reflex To Culture Urgent
Date Specimen was Collected: 06/25/25
Time Specimen was Collected: 19:30
Urine Microscopic Reflex Cult Urgent
Urine Culture Urgent
FRANKLYN Source: U
Specimen Description:
Date Specimen was Collected: 06/25/25
Time Specimen was Collected: 19:30
06/25/25 19:58
CefTRIAXone [Rocephin] 1,000 mg IV NOW STA
06/25/25 20:46
Admit/Transfer Patient As Directed
Co-Sign Provider:
Level of Care: Inpatient admission
Assign to:: Telemetry
Physician / Group: Mundo
Diagnosis: Sepsis, UTI
Reason for Telemetry: Arrhythmia
Date to Stop Telemetry: 06/28/25
Time to Stop Telemetry: 11:00
Reason for Hospitalization: IVFs, IV abx
Expected length of stay greater than two midnights?: Yes
ELOS- Estimated Length of Stay in days: 3
I certify the patient meets the requirements for IP care: Yes
06/25/25 20:47
PRN Pain Medication Management As Directed
May give lesser potent ordered pain med per pt: Yes
preference::
Protocol:: Medication orders for pain may be administered in a
manner that supports deferring to patient preference
when the pt is:
- Requesting an ordered lesser potent pain medication.
Least to most potent pain medications are defined
as: acetaminophen < NSAID < tramadol < opioids
(morphine, oxycodone, hydromorphone).
- Requesting a lesser dose of the same medication IF
ORDERED.
- Requesting a less intrusive route of administration
if both routes are prescribed by the provider (PO <
IV).
06/25/25 20:49
Code Status As Directed
Resuscitation Status: Do not resuscitate
Reached after discussion with pt or family/Healthcare POA: Yes
DNR Bracelet Application ONCE
06/25/25 21:12
Blood Culture Q30M
FRANKLYN Source: Blood/Venous
Specimen Description:
Blood Culture Q30M
FRANKLYN Source: Blood/Venous
Specimen Description:
06/25/25 21:58
0.9% Sodium Chloride 1000 ml [Nss] 1,000 ml IV 80 mls/hr
Acetaminophen [Tylenol] 650 mg PO Q4HPRN PRN
06/25/25 21:58
Activity As Directed
Activity Level: Out of Bed- Chair
Bladder Scan As Directed
Follow Bladder Retention/Intermittent Cath Algorithm?: Yes
PRN if no void in __ hours: 6
Frequency: Per Retention Algorithm
If Bladder Scan Result >: 400
then:: Straight cath
I&O [Intake/ Output] As Directed
Frequency: q12h
Straight Cath As Directed
Frequency: Per Retention Algorithm
Additional Instructions: straight cath as needed per acute urinary retention algorithm for 24 hrs
Additional Instructions: for bladder scan greater than 400 mL
Vital Signs As Directed
Frequency: Per unit guidelines
Weight As Directed
Frequency: Daily
Speech Therapy Eval & Treat Routine
DX Deep Vein Thrombosis Video Routine
06/25/25 22:00
Melatonin 5 mg PO HS
06/26/25 00:00
Heparin 5,000 units SC Q8
06/26/25 06:00
Basic Metabolic Panel IN AM
Complete Blood Count/No Diff IN AM
06/26/25 07:30
Carbidopa/Levodopa [Sinemet 25-100] 1 tablet PO AC
06/26/25 08:00
Amantadine [Symmetrel] 100 mg PO BID
Docusate Sodium [Colace] 100 mg PO DAILY
Escitalopram Oxalate [Lexapro] 10 mg PO DAILY
Lamotrigine [Lamictal] 150 mg PO BID
Midodrine [ProAmatine] 5 mg PO TID @ 0800,1200,1700
Rivastigmine [Exelon Patch] 4.6 mg TRANSDERM DAILY
06/26/25 20:00
CefTRIAXone [Rocephin] 1,000 mg IV Q24H
06/27/25 22:00
Famotidine [Pepcid] 20 mg PO Q48H
06/28/25 11:00
DC Protocol for Telemetry ONCE
Abnormal Lab Results
06/25/25 06/25/25
15:29 19:49
WBC 14.1 H 10^3/uL
(4.8-10.8)
RBC 4.18 L 10^6/uL
(4.20-5.40)
Hgb 11.7 L g/dL
(12.0-16.0)
Hct 35.5 L %
(37.0-47.0)
RDW 15.9 H %
(11.5-14.5)
Abs Immat Gran (auto) 0.2 H 10^3/uL
(0-0.05)
Absolute Neuts (auto) 11.0 H 10^3/uL
(1.4-6.5)
Absolute Monos (auto) 0.8 H 10^3/uL
(0.1-0.6)
Immature Gran % 1.1 H %
(0-0.5)
Neutrophils % 77.8 H %
(42.2-75.2)
Lymphocytes % 14.4 L %
(20.5-51.1)
Sodium 134 L mmol/L
(135-145)
Potassium 5.3 H mmol/L
(3.5-5.1)
Carbon Dioxide 17 L mmol/L
(22-30)
BUN 75 H mg/dl
(7-17)
Creatinine 2.2 H mg/dL
(0.6-1.0)
Glucose 133 H mg/dl
(70-99)
Calcium 10.4 H mg/dl
(8.4-10.2)
AST 8 L U/L
(14-36)
Alkaline Phosphatase 129 H U/L
(38-126)
Total Protein 8.4 H g/dl
(6.3-8.2)
Ur Occult Blood Reflex 4+ A
(Negative)
Urine Nitrite (Reflex) Positive A
(Negative)
Leukocyte Esterase Rfl 3+ A
(Negative)
Urine RBC >100 A /HPF
(0-2)
Urine WBC (Reflex) >100 A /HPF
(0-5)
Urine Bacteria (Reflex) Many A
(Negative)
Urine Albumin (Reflex) 3+ A
(Neg - Trace)
06/25/25 15:29
06/25/25 15:29
White blood count elevated, significant elevation in BUN and creatinine compared to prior labs from April where creatinine was 1. Mild elevation in potassium
Vital Signs
Initial and Last Documented VS:
Initial Vital Signs
Temp Pulse Resp BP Pulse Ox
98.0 F 87 16 106/75 98
06/25/25 15:17 06/25/25 15:17 06/25/25 15:17 06/25/25 15:17 06/25/25 15:17
Last Documented Vital Signs
Temp Pulse Resp BP Pulse Ox
98 F 83 19 132/68 94
06/25/25 18:00 06/25/25 21:45 06/25/25 21:45 06/25/25 21:00 06/25/25 21:45
MDM/Problems Addressed
Differential Diagnosis Includes:
Differential diagnosis to consider but not limited to acute kidney injury, electrolyte dyscrasia, occult infection, intracranial hemorrhage along with other etiologies considered
Chronic conditions affecting care:
As per HPI
*Pulse Oximetry
SaO2: 100
Oxygen Mode of Delivery: Room air
Patient hypoxic: no
*EKG
Interpreted by ED Provider?: Yes (I independently viewed and interpreted twelve-lead EKG showing sinus rhythm with sinus arrhythmia, rate 84, normal axis, no ST elevation, this is a nonspecific EKG without evidence for acute ischemia, no significant
change compared to prior from 02/02/2025)
*Steam Engineer Interpretation
Rate: normal (I independently viewed and interpreted rhythm strip showing sinus rhythm with marked sinus arrhythmia)
*Critical Care Note
Total Time (30-74mins, 75-104mins- exclusive of procedures): Not Applicable
Update Note
Update Note:
I discussed with patient's son present at bedside advance directive-she is DNR/DNI. He agrees with plan for CT head, chest x-ray, COVID flu and urinalysis. Awaiting results.
1750: I reviewed all test results with patient and son present at bedside. Nurse reports that urine sample obtained was very cloudy, malodorous, lots of sediment, would suspect this is etiology of symptoms. In review of micro report from
urinalysis 06/11/2025-she had E. coli that was susceptible to most agents, resistant only to tetracycline and ampicillin. Will give Rocephin. I discussed with him need for IV hydration given significant HUEY on labs. He agrees with plan at current.
We also reviewed CT head and chest x-ray which did not show any acute worrisome process. He agrees with plan for admission. Patient is DNR/DNI. Will discuss with the hospitalist
. I reviewed full patient presentation with the hospitalist who accepts patient for admission
ED Attending Note
-
Portions of this chart may have been created with voice recognition software.� Occasional wrong word or��sound alike� substitutions may have occurred due to the inherent limitations of voice recognition software.
Discharge Plan
Departure
Patient Disposition: Admit
Date of Disposition: 06/25/25
Time of Disposition: 20:21
Presentation/result/management discussed w/ accepting MD/DO: Hospitalist
Discharge Problem:
Acute UTI, HUEY (acute kidney injury), Altered mental status
Interventions
Interventions:
*General Assessment Last Done: 06/25/25 15:17
*Neglect/Abuse Screening Last Done: 06/25/25 15:17
*ED COVID-19 Vaccine History Last Done: 06/25/25 15:17
*ED Influenza Vaccine History Last Done: 06/25/25 15:17
[facility] Fall Risk Assessment Tool Last Done: 06/25/25 15:17
*Risk Screen - Suicide (C-SSRS) Last Done: 06/25/25 15:17
ED- Cardiac Assessment Last Done: 06/25/25 18:10
ED- Neurological Assessment Last Done: 06/25/25 18:10
ED- Pulmonary Assessment Last Done: 06/25/25 18:13
[2025-06-25 18:58] LABS: COVID-19 Antigen Negative (Negative)
[2025-06-25] MEDS: NSS 1000 IV ×2 (19:21→22:45)
[2025-06-25 20:12] LABS: Urine Character Cloudy (Clear)
[2025-06-25] MEDS: ROCEPHIN 1000 MG IV (20:15)
--- NOTE | 2025-06-25 20:25 | HPS.HSE ---
Addendum entered and electronically signed by Connor Flower DO 06/25/25 21:41:
Patient seen and examined independently. Agree with findings and plan as set forth by Meenakshi Avendano PA-C.
Patient is a 70y F with PMH significant for dementia, bladder cancer and recurrent UTIs who presents to ED from [place] for evaluation of mental status change. Patient with increased confusion and new, mimbling speech. has had similar symptoms with
UTI in the past. Has documented ureteral reflux. Patient is mumbling and does not answer questions appropriately. No additional history from patient possible.
Ass:
UTI
Altered Mental Status secondary to the above
HUEY
Sepsis secondary to the above
Parkinson's Disease with Dementia
Orthostatic Hypotension
Plan:
Admit for further evaluation and treatment.
IV abx with ceftriaxone based on prior culture data - follow-up new cultures.
Patient unfortunately with known ureteral reflux and neurogenic bladder predisposing to recurrent UTI.
Has been on methenamine without significant improvement.
IVFs, supportive care. Follow for clinical improvement.
Continue usual home med regimen.
Original Note:
Family Physician
-
Family Physician: Phani Mullen Sr.,
Chief Complaint
-
Weakness / Change in mental status
History of Present Illness
Patient is a 70 y/o female past medical history of Parkinson's disease, orthostatic hypotension, dementia with mood disturbance and recurrent urinary tract infections who presents with weakness and change in mental status. Patient is unable to
provide any additional history. History obtained from patient's son via phone, facility paperwork and review of emergency department documentation. Patient recently completed a nitrofurantoin for a urinary tract infection, and is maintained on
methenamine hippurate for prophylaxis. Son reports over the past few days her appetite has been very poor, and she has not been eating much food but to his knowledge she was drinking fluids up until today. Today patient's was noted to be more weak
and lethargic. Her speech is usually clear but today noted to be very mumbled, and she was not responding as her norm.
Medical History
Past Medical History
Past Medical History: Reports Other
Additional Past Medical History:
Parkinson's Disease
Orthostatic Hypotension
Dementia with Mood Disturbance
Bladder Cancer
Recurrent UTIs
Osteoporosis
Past Surgical History: Reports Other
Additional Past Surgical History:
TURBT
LASIK
Social History
Tobacco: Former Smoker (Quit smoking about 10 years ago. )
Alcohol: None
Drug: None
Family History
Family History: Not pertinent
Allergies / Home Medications
Allergies reflects when Allergies were last updated in [facility].
Home Medications with original date entered in [facility]
Allergy/Medication List:
Allergies
Allergy/AdvReac Type Severity Reaction Status Date / Time
No Known Allergies Allergy Verified 06/25/25 15:22
Home Medications
alendronate 70 mg tablet 70 mg PO ELIZALDE OSTEOPEROSIS 02/01/25
carbidopa 25 mg-levodopa 100 mg tablet 1 tab PO AC Neurological Condition 02/01/25
amantadine HCl 100 mg capsule 100 mg PO BID Neurological Condition 03/25/25
melatonin 5 mg disintegrating tablet 5 mg PO HS Sleep 03/25/25
famotidine 20 mg tablet 20 mg PO DAILY #0 tabs 03/27/25
docusate sodium 100 mg capsule 100 mg PO DAILY Constipation 04/26/25
escitalopram oxalate 10 mg tablet 10 mg PO DAILY Mental Health 04/26/25
lamotrigine 150 mg tablet 150 mg PO BID Neurological Condition 04/26/25
pantoprazole 40 mg tablet,delayed release 40 mg PO DAILY Gastrointestinal Issue 04/26/25
rivastigmine 4.6 mg/24 hour transdermal patch 1 patch transdermal DAILY Neurological Condition 04/26/25
methenamine hippurate 1 gram tablet 1 g PO BID 06/25/25
midodrine 5 mg tablet 5 mg PO TID 06/25/25
polyethylene glycol 3350 17 gram oral powder packet 17 g PO DAILYPRN PRN constipation 06/25/25
therapeutic multivitamin 1 tab PO DAILY 06/25/25
Review of Systems
-
Unable to obtain full review of systems at this time due to: Dementia
Physical Exam
Vital Signs
Vital Signs
Temp Pulse Resp BP Pulse Ox
98 F 95 30 98/66 100
06/25/25 18:00 06/25/25 19:15 06/25/25 19:15 06/25/25 19:11 06/25/25 18:52
Physical Exam
General: Well Developed, Well Nourished and No Apparent Distress
HEENT: Anicteric and Other (Lips are dry)
Respiratory: Clear and Non Labored Respirations
Cardiac: S1/S2 and Regular Rhythm
GI: Soft and Non Tender
Rectal: Deferred by Provider
Musculoskeletal: No Clubbing and No Cyanosis
Skin: Warm and Dry
Neuro: Other (Lethargic but easily arousable, unable to participate in full neurologic evaluation)
Psych: Calm
Laboratory Results
-
06/25/25 15:29
06/25/25 15:29
Laboratory Results
Total Bilirubin 0.6 mg/dl (0.2-1.3) 06/25/25 15:29
AST 8 U/L (14-36) L 06/25/25 15:29
ALT < 10 U/L (0-35) 06/25/25 15:29
Alkaline Phosphatase 129 U/L (38-126) H 06/25/25 15:29
Data Reviewed
-
Lab Data: Labs Reviewed by me
Old Records: Reviewed
Impression/Plan
-
Sepsis (as indicated by acute kidney injury and encephalopathy) secondary to Urinary Tract Infection
-Check blood cultures
-Await urine culture
-Continue ceftriaxone
Acute Kidney Injury / Hyperkalemia
-Continue IVFs
-Recheck labs in AM
Parkinson's Disease
-Continue amantadine and carbidopa/levodopa
-Continue rivastigmine
Orthostatic Hypotension
-Continue midodrine
Dementia with Mood Disturbance
-Continue escitalopram and lamotrigine
DVT proph: SC Heparin
Code Status: DNR per [place] paperwork, and confirmed with son via phone at time of admission
[2025-06-25 20:31] LABS: Urine Red Blood Cell >100 /HPF (0-2); Urine White Cell >100 /HPF (0-5)
[2025-06-25] MEDS: MELATONIN 5 MG PO (23:01)
[2025-06-26] VITALS (9 sets, daily range): BP systolic 91–124; BP diastolic 56–89; BMI 17.2
[2025-06-26] MEDS: ZYPREXA 2.5 MG PO (00:39)
[2025-06-26] MEDS: HEPARIN SC (00:42)
[2025-06-26 05:27] LABS: Hematocrit 31.0 % (37.0-47.0); Hemoglobin 10.1 g/dL (12.0-16.0); Mean Corp Hgb Conc. 32.6 g/dL (33.0-37.0); Mean Corpuscular Volume 87.6 fL (81.0-99.0); Platelet Count 313 10^3/uL (130-400); Red Cell Dist. Width 15.8 % (11.5-14.5)
[2025-06-26 05:48] LABS: Blood Urea Nitrogen 62 mg/dl (7-17); Calcium 9.2 mg/dl (8.4-10.2); Carbon Dioxide 19 mmol/L (22-30); Chloride 113 mmol/L (98-107); Estimated Creatinine Clearance 25 ml/min; Glucose 114 mg/dl (70-99); Potassium 5.1 mmol/L (3.5-5.1); Sodium 140 mmol/L (135-145); eGFR 34.48
[2025-06-26] MEDS: SINEMET 25-100 1 TABLET PO ×3 (09:55→16:06)
[2025-06-26] MEDS: LAMICTAL 150 MG PO ×2 (09:55→21:02)
[2025-06-26] MEDS: COLACE 100 MG PO (09:55)
[2025-06-26] MEDS: HEPARIN 5000 UNITS SC ×3 (09:56→23:06)
--- NOTE | 2025-06-26 10:26 | PTOTSP ---
Dysphagia Evaluation
Patient has acute on chronic dysphagia risk factors (i.e., acute: UTI with AMS; chronic: Parkinsons disease, dementia, GERD). Patient currently presents with signs concerning for oral stage dysphagia but no signs concerning for pharyngeal dysphagia
or aspiration. Cannot r/o silent aspiration in patient with Parkinsons and dementia. However, CXR w/o signs of PNA at this time per chart review. Patient requested pureed diet due to oral/dental pain.
Recommend:
1. IDDSI 4 puree, IDDSI 0 thin
2. Medications as best tolerated
3. Strategies: upright to 90 degrees, supervision and assist with PO intake, single sips/bites, slow rate, reflux precautions
4. Oral care 3x daily
5. Dysphagia f/u at the acute care level to determine if/when diet advancement appropriate
[2025-06-26] MEDS: NSS 1000 IV ×2 (11:27→21:18)
[2025-06-26] MEDS: NON-FORMULARY ITEM 1 UNIT TOPICAL (11:29)
[2025-06-26] MEDS: EXELON PATCH 4.6 MG TRANSDERM (11:30)
[2025-06-26] MEDS: LEXAPRO 10 MG PO (11:31)
[2025-06-26] MEDS: SYMMETREL 100 MG PO ×2 (11:32→21:02)
--- NOTE | 2025-06-26 12:44 | W.PN.HOSP.TC ---
Today's Communication/Plan
-
Continue with IV fluids
Trend BMP
Continue antibiotics
Monitor mentation
Follow-up on the culture data
Assessment / Plan
Assessment / Plan
General: cachectic, No Apparent Distress
HEENT: Anicteric and Other (Lips are dry)
Respiratory: Clear and Non Labored Respirations
Cardiac: S1/S2 and Regular Rhythm
GI: Soft and Non Tender
Rectal: Deferred by Provider
Musculoskeletal: No Clubbing and No Cyanosis
Skin: Warm and Dry
Neuro: Awake, mammillary, moving all 4 extremities to some extent, not able to participate completely in neurological examination due to mentation
Psych: Calm
Sepsis (as indicated by acute kidney injury and encephalopathy) secondary to Urinary Tract Infection
-Check blood cultures and lab
-Await urine culture
-Continue ceftriaxone
Toxic metabolic encephalopathy likely secondary to sepsis versus dehydration
-CT head negative
-Cont with abx as above
-IVF continued for now
-speech evaluated-puree diet due to teeth problem
Acute Kidney Injury / Hyperkalemia
-Continue IVFs
- Creatinine downtrending. Creatinine 1.6. Potassium improved. Seems severely dehydrated.
Parkinson's Disease
-Continue amantadine and carbidopa/levodopa
-Continue rivastigmine
Orthostatic Hypotension
-Continue midodrine
Dementia with Mood Disturbance
-Continue escitalopram and lamotrigine
DVT proph: SC Heparin
Code Status: DNR per [place] paperwork, and confirmed with son via phone at time of admission
Anticipated Discharge: > 48 hours
Subjective/Interval History
-
Date of Service: June 26, 2025
Remains confused
Objective Data
-
Labs:
Laboratory Results
06/26/25
04:46
WBC 12.3 H
Hgb 10.1 L
Hct 31.0 L
Plt Count 313
Sodium 140
Potassium 5.1
Chloride 113 H
Carbon Dioxide 19 L
BUN 62 H
Creatinine 1.6 H
Glucose 114 H
Calcium 9.2
Vital Signs:
Vital Signs
Temp Pulse Resp BP Pulse Ox
98.1 F 74 16 119/78 98
06/26/25 08:27 06/26/25 08:15 06/26/25 08:27 06/26/25 08:24 06/26/25 08:27
Data Reviewed
-
Total Time Spent with Patient (in minutes): 55
--- NOTE | 2025-06-26 16:44 | PTCARENOTE ---
Patient admitted from ED into room 2125. Patient AAO to self only, confused, drowsy, mumbled garbled speech. Assist x2 slide transfer from stretcher to bed, inc small amount of urine with brown discharge on admin. Hygiene provided, sacral foam and
B/L heel foams placed for protection. IVF infusing through R wrist IV. Patient unable to participate in admission questions/suicide screening, able to take pills whole one at a time with water. Speech and PT screenings in place. Bed alarm in place.
[2025-06-26 18:48] LABS: Hepatitis B Surface Antigen Negative (Negative)
[2025-06-26 19:06] LABS: Hepatitis C Antibody Negative (Negative)
[2025-06-26] MEDS: MELATONIN 5 MG PO (21:02)
[2025-06-26] MEDS: ROCEPHIN 1000 MG IV (21:04)
[2025-06-26] MEDS: STERILE WATER FOR INJECTION 10 ML IV (21:04)
--- NOTE | 2025-06-26 21:51 | VATNOTE ---
PT APPEARS TO HAVE AN IV SITE IN BOTH RUE AND LUE. BOTH ARE SECURELY WRAPPED WITH DANIELLE AND NOT VISABLE FOR ASSESSMENT. PT HAD DISCONNECTED TUBING FROM RUE SITE. LINE FLUSHED AND IVF RESUMED.SUGGESTED MITTS FOR PCN PT AATTMETPING TO PULL AND TUG
AT IV SITES.
[2025-06-27 03:00] VITALS: BP 124/60
[2025-06-27] MEDS: FLUSH (NSS) 1 FLUSH IV (06:48)
[2025-06-27] MEDS: ATIVAN 0.25 MG IV (06:48)
[2025-06-27 07:31] VITALS: BP 108/62
[2025-06-27 08:33] LABS: Hematocrit 28.0 % (37.0-47.0); Hemoglobin 8.9 g/dL (12.0-16.0); Mean Corp Hgb Conc. 31.8 g/dL (33.0-37.0); Mean Corpuscular Volume 89.5 fL (81.0-99.0); Nucleated Red Blood Cells % 0 %; Platelet Count 302 10^3/uL (130-400); Red Cell Dist. Width 16.5 % (11.5-14.5)
[2025-06-27] MEDS: SYMMETREL 100 MG PO ×2 (08:46→19:24)
[2025-06-27] MEDS: SINEMET 25-100 1 TABLET PO ×3 (08:46→16:44)
[2025-06-27] MEDS: LAMICTAL 150 MG PO ×2 (08:46→19:24)
[2025-06-27] MEDS: HEPARIN 5000 UNITS SC ×2 (08:47→16:47)
[2025-06-27] MEDS: EXELON PATCH 4.6 MG TRANSDERM (08:47)
[2025-06-27] MEDS: LEXAPRO 10 MG PO (08:47)
[2025-06-27] MEDS: COLACE 100 MG PO (08:47)
[2025-06-27] MEDS: NON-FORMULARY ITEM 1 UNIT TOPICAL (08:51)
[2025-06-27 09:16] LABS: Blood Urea Nitrogen 32 mg/dl (7-17); Calcium 8.4 mg/dl (8.4-10.2); Carbon Dioxide 19 mmol/L (22-30); Chloride 118 mmol/L (98-107); Estimated Creatinine Clearance 35 ml/min; Glucose 82 mg/dl (70-99); Potassium 4.4 mmol/L (3.5-5.1); Sodium 145 mmol/L (135-145); eGFR 54.06
[2025-06-27 11:07] VITALS: BP 94/49
[2025-06-27] MEDS: PEPCID 20 MG PO (11:30)
--- NOTE | 2025-06-27 12:09 | W.PN.HOSP.TC ---
Today's Communication/Plan
-
Observed of IV fluid
Continue IV antibiotics
Recommend assistance with feeding and drinking
Assessment / Plan
Assessment / Plan
General: cachectic, No Apparent Distress
HEENT: Anicteric and Other (Lips are dry)
Respiratory: Clear and Non Labored Respirations
Cardiac: S1/S2 and Regular Rhythm
GI: Soft and Non Tender
Rectal: Deferred by Provider
Musculoskeletal: No Clubbing and No Cyanosis
Skin: Warm and Dry
Neuro: Awake, mammillary, moving all 4 extremities to some extent, not able to participate completely in neurological examination due to mentation
Psych: Calm
Sepsis (as indicated by acute kidney injury and encephalopathy) secondary to E.coli Urinary Tract Infection
-Blood culture remains negative so far
-Await urine culture susceptibility results
-Continue ceftriaxone
Toxic metabolic encephalopathy likely secondary to sepsis versus dehydration
-CT head negative
-Cont with abx as above
-Discontinue further fluids.
-speech evaluated-puree diet due to teeth problem
Acute Kidney Injury / Hyperkalemia
-Observe off IV fluids
- Creatinine downtrending. Creatinine continues to improve.
Parkinson's Disease with hallucinations
Dysphagia due to teething problem-on puree diet-patient will require assistance with feeding or drinking.
-Continue amantadine and carbidopa/levodopa
-Continue rivastigmine
Orthostatic Hypotension
-Continue midodrine
Dementia with Mood Disturbance
-Continue escitalopram and lamotrigine
DVT proph: SC Heparin
Code Status: DNR per [place] paperwork, and confirmed with son via phone at time of admission
Updated son over the phone in details
Anticipated Discharge: 24 - 48 hours
Subjective/Interval History
-
Date of Service: June 27, 2025
overnight events noted
remains confused
Objective Data
-
Labs:
Laboratory Results
06/27/25
07:18
WBC 7.6
Hgb 8.9 L
Hct 28.0 L
Plt Count 302
Sodium 145
Potassium 4.4
Chloride 118 H
Carbon Dioxide 19 L
BUN 32 H
Creatinine 1.1 H
Glucose 82
Calcium 8.4
Vital Signs:
Vital Signs
Temp Pulse Resp BP Pulse Ox
97.5 F 78 18 94/49 99
06/27/25 11:07 06/27/25 11:29 06/27/25 11:07 06/27/25 11:29 06/27/25 11:07
I&O
06/26/25 06/27/25 06/28/25
06:59 06:59 06:59
Intake Total 1250 / 1250
Balance 1250 / 1250
Data Reviewed
-
Total Time Spent with Patient (in minutes): 55
[2025-06-27] MEDS: RISPERDAL 0.25 MG PO ×2 (13:03→19:24)
[2025-06-27 15:16] VITALS: BP 114/78
[2025-06-27 15:50] VITALS: BMI 17.2
--- NOTE | 2025-06-27 16:37 | CM ---
Patient is a resident of [facility]. Requires assistance for ADL's and ambulation. Has a RW and W/CH. Uses the W/CH for mobility. Can stand and pivot with assistance. Able to feed self after set-up. Discharge POC:
Anticipate return to [facility].
[2025-06-27] MEDS: STERILE WATER FOR INJECTION 10 ML IV (19:30)
[2025-06-27] MEDS: ROCEPHIN 1000 MG IV (19:32)
--- NOTE | 2025-06-27 21:53 | PTCARENOTE ---
Patient is getting more agitated/ constantly trying to climb out of the bed/ unable to reorient/ uncooperative. with mitts on. Dc'd mitts. Notified house provider. New order for Sarah chair.
[2025-06-27] MEDS: MELATONIN 5 MG PO (22:58)
[2025-06-27] MEDS: TYLENOL 650 MG PO (23:00)
[2025-06-27 23:13] VITALS: BP 120/56
[2025-06-28] MEDS: HEPARIN 5000 UNITS SC ×4 (00:39→23:27)
[2025-06-28 07:15] VITALS: BP 134/74
[2025-06-28] MEDS: SINEMET 25-100 1 TABLET PO ×3 (07:32→16:41)
[2025-06-28] MEDS: SYMMETREL 100 MG PO ×2 (07:32→20:56)
[2025-06-28] MEDS: PEPCID 20 MG PO (07:33)
[2025-06-28] MEDS: COLACE 100 MG PO (07:33)
[2025-06-28] MEDS: LAMICTAL 150 MG PO ×2 (07:33→20:56)
[2025-06-28] MEDS: LEXAPRO 10 MG PO (07:33)
[2025-06-28] MEDS: EXELON PATCH 4.6 MG TRANSDERM (07:39)
[2025-06-28] MEDS: NON-FORMULARY ITEM 1 UNIT TOPICAL (07:41)
[2025-06-28 08:46] LABS: Hematocrit 30.6 % (37.0-47.0); Hemoglobin 9.7 g/dL (12.0-16.0); Mean Corp Hgb Conc. 31.7 g/dL (33.0-37.0); Mean Corpuscular Volume 87.4 fL (81.0-99.0); Nucleated Red Blood Cells % 0 %; Platelet Count 343 10^3/uL (130-400); Red Cell Dist. Width 17.0 % (11.5-14.5)
[2025-06-28 10:59] LABS: Blood Urea Nitrogen 25 mg/dl (7-17); Calcium 9.0 mg/dl (8.4-10.2); Carbon Dioxide 18 mmol/L (22-30); Chloride 116 mmol/L (98-107); Estimated Creatinine Clearance 35 ml/min; Glucose 91 mg/dl (70-99); Potassium 4.4 mmol/L (3.5-5.1); Sodium 144 mmol/L (135-145); eGFR 54.06
[2025-06-28 11:33] VITALS: BP 99/64
--- NOTE | 2025-06-28 13:42 | W.PN.HOSP.TC ---
Today's Communication/Plan
-
monitor po intake
if remains with s significantly low oral intake may to consider starting fluids
Sodium mildly uptrending
Continue with IV antibiotics
Assistance with feeding at all times
Assessment / Plan
Assessment / Plan
General: cachectic, No Apparent Distress
HEENT: Anicteric and Other (Lips are dry)
Respiratory: Clear and Non Labored Respirations
Cardiac: S1/S2 and Regular Rhythm
GI: Soft and Non Tender
Rectal: Deferred by Provider
Musculoskeletal: No Clubbing and No Cyanosis
Skin: Warm and Dry
Neuro: Awake, mammillary, moving all 4 extremities to some extent, not able to participate completely in neurological examination due to mentation
Psych: Calm
Sepsis (as indicated by acute kidney injury and encephalopathy) secondary to E.coli Urinary Tract Infection
-Blood culture remains negative so far
-Await urine culture susceptibility results-pansensitive
-Continue ceftriaxone
Toxic metabolic encephalopathy likely secondary to sepsis versus dehydration versus worsening of suspected dementia
-CT head negative
-Cont with abx as above
-Discontinue further fluids.
-speech evaluated-puree diet due to teeth problem
Acute Kidney Injury / Hyperkalemia
-Observe off IV fluids
- Creatinine downtrending. Creatinine continues to improve.
Parkinson's Disease with hallucinations
Dysphagia due to teething problem-on puree diet-patient will require assistance with feeding or drinking.
-Continue amantadine and carbidopa/levodopa
-Continue rivastigmine
Orthostatic Hypotension
-Continue midodrine
Dementia with Mood Disturbance
-Continue escitalopram and lamotrigine
DVT proph: SC Heparin
Code Status: DNR per [place] paperwork, and confirmed with son via phone at time of admission
Anticipated Discharge: Within 24 hours
Subjective/Interval History
-
Date of Service: June 28, 2025
overnight events noted-pt with confusion/agitation
speaking more clearly today with more words compared to yesterday
RN/tech assisting patient w/feeding/drinking
Objective Data
-
Labs:
Laboratory Results
06/28/25
07:56
WBC 9.3
Hgb 9.7 L
Hct 30.6 L
Plt Count 343
Sodium 144
Potassium 4.4
Chloride 116 H
Carbon Dioxide 18 L
BUN 25 H
Creatinine 1.1 H
Glucose 91
Calcium 9.0
Vital Signs:
Vital Signs
Temp Pulse Resp BP Pulse Ox
97.6 F 86 18 99/64 98
06/28/25 07:15 06/28/25 12:40 06/28/25 07:15 06/28/25 12:40 06/28/25 08:58
I&O
06/27/25 06/28/25 06/29/25
06:59 06:59 06:59
Intake Total 1250 / 1250 880 / 880
Balance 1250 / 1250 880 / 880
[2025-06-28 15:01] VITALS: BP 107/59
--- NOTE | 2025-06-28 18:31 | PTCARENOTE ---
Pt moved from esequiel chair to bed.
[2025-06-28] MEDS: STERILE WATER FOR INJECTION 10 ML IV (20:58)
[2025-06-28] MEDS: ROCEPHIN 1000 MG IV (20:59)
[2025-06-28] MEDS: MELATONIN 5 MG PO (23:27)
[2025-06-28 23:39] VITALS: BP 129/78
[2025-06-29] MEDS: TYLENOL 650 MG PO (01:45)
[2025-06-29 07:09] VITALS: BP 139/78
[2025-06-29 07:16] LABS: Hematocrit 28.3 % (37.0-47.0); Hemoglobin 9.2 g/dL (12.0-16.0); Mean Corp Hgb Conc. 32.5 g/dL (33.0-37.0); Mean Corpuscular Volume 88.7 fL (81.0-99.0); Nucleated Red Blood Cells % 0 %; Platelet Count 325 10^3/uL (130-400); Red Cell Dist. Width 17.0 % (11.5-14.5)
[2025-06-29 07:44] LABS: Blood Urea Nitrogen 22 mg/dl (7-17); Calcium 8.9 mg/dl (8.4-10.2); Carbon Dioxide 22 mmol/L (22-30); Estimated Creatinine Clearance 35 ml/min; Glucose 99 mg/dl (70-99); Potassium 4.4 mmol/L (3.5-5.1); Sodium 142 mmol/L (135-145); eGFR 54.06
[2025-06-29 07:50] LABS: Chloride 115 mmol/L (98-107)
[2025-06-29] MEDS: EXELON PATCH 4.6 MG TRANSDERM (08:52)
[2025-06-29] MEDS: SINEMET 25-100 1 TABLET PO ×3 (08:52→16:28)
[2025-06-29] MEDS: LAMICTAL 150 MG PO ×2 (08:54→19:52)
[2025-06-29] MEDS: SYMMETREL 100 MG PO ×2 (08:54→19:53)
[2025-06-29] MEDS: PEPCID 20 MG PO (08:55)
[2025-06-29] MEDS: COLACE 100 MG PO (08:55)
[2025-06-29] MEDS: NON-FORMULARY ITEM 1 UNIT TOPICAL (08:57)
[2025-06-29] MEDS: LEXAPRO 10 MG PO (08:58)
[2025-06-29] MEDS: HEPARIN 5000 UNITS SC ×2 (08:58→16:29)
--- NOTE | 2025-06-29 11:12 | CM ---
Spoke w/ [facility] Installer to discuss discharge plan; he requested updated clinical and therapy notes; tomorrow he will speak with Katya Sy @ [facility] and they will determine if patient needs rehab before she returns to
[facility]
--- NOTE | 2025-06-29 11:26 | W.PN.HOSP.TC ---
Today's Communication/Plan
-
IV abx
PT/OT
snf
assistance with feeding
Assessment / Plan
Assessment / Plan
General: cachectic, No Apparent Distress
HEENT: Anicteric and Other (Lips are dry)
Respiratory: Clear and Non Labored Respirations
Cardiac: S1/S2 and Regular Rhythm
GI: Soft and Non Tender
Rectal: Deferred by Provider
Musculoskeletal: No Clubbing and No Cyanosis
Skin: Warm and Dry
Neuro: Awake, mammillary, moving all 4 extremities to some extent, not able to participate completely in neurological examination due to mentation
Psych: Calm
Sepsis (as indicated by acute kidney injury and encephalopathy) secondary to E.coli Urinary Tract Infection
-Blood culture remains negative so far
-Await urine culture susceptibility results-pansensitive
-Continue ceftriaxone
Toxic metabolic encephalopathy likely secondary to sepsis versus dehydration versus worsening of suspected dementia
-CT head negative
-Cont with abx as above
-Discontinue further fluids.
-speech evaluated-puree diet due to teeth problem
Acute Kidney Injury / Hyperkalemia
-Observe off IV fluids
- Creatinine downtrending. Creatinine continues to improve.
Parkinson's Disease with hallucinations
Dysphagia due to teething problem-on puree diet-patient will require assistance with feeding or drinking.
-Continue amantadine and carbidopa/levodopa
-Continue rivastigmine
Orthostatic Hypotension
-Continue midodrine
Dementia with Mood Disturbance
-Continue escitalopram and lamotrigine
DVT proph: SC Heparin
Code Status: DNR per [place] paperwork, and confirmed with son via phone at time of admission
PT/OT ordered-probably will require SNF prior to returning to memory care.
update son over the phone.
Anticipated Discharge: Within 24 hours
Subjective/Interval History
-
Date of Service: June 29, 2025
doing better
ate breakfast with assistance
afebrile
Objective Data
-
Labs:
Laboratory Results
06/29/25
06:28
WBC 10.8
Hgb 9.2 L
Hct 28.3 L
Plt Count 325
Sodium 142
Potassium 4.4
Chloride 115 H
Carbon Dioxide 22
BUN 22 H
Creatinine 1.1 H
Glucose 99
Calcium 8.9
Vital Signs:
Vital Signs
Temp Pulse Resp BP Pulse Ox
97.9 F 71 16 139/78 99
06/29/25 07:09 06/29/25 07:09 06/29/25 07:09 06/29/25 07:09 06/29/25 07:09
I&O
06/28/25 06/29/25 06/30/25
06:59 06:59 06:59
Intake Total 880 / 880 500 / 500
Balance 880 / 880 500 / 500
[2025-06-29 16:04] VITALS: BP 123/63
[2025-06-29 16:15] VITALS: BP 123/63; PULSE 66; O2SAT 99
[2025-06-29] MEDS: ROCEPHIN 1000 MG IV (19:51)
[2025-06-29] MEDS: STERILE WATER FOR INJECTION 10 ML IV (19:52)
[2025-06-29] MEDS: MELATONIN 5 MG PO (22:34)
[2025-06-29 23:03] VITALS: BP 103/58
[2025-06-30] MEDS: HEPARIN 5000 UNITS SC ×3 (00:20→16:05)
[2025-06-30 07:00] VITALS: BP 100/46
[2025-06-30] MEDS: LAMICTAL 150 MG PO (09:35)
[2025-06-30] MEDS: LEXAPRO 10 MG PO (09:35)
[2025-06-30] MEDS: SYMMETREL 100 MG PO (09:36)
[2025-06-30] MEDS: SINEMET 25-100 1 TABLET PO ×3 (09:36→16:04)
[2025-06-30] MEDS: COLACE 100 MG PO (09:37)
[2025-06-30] MEDS: PEPCID 20 MG PO (09:37)
[2025-06-30] MEDS: EXELON PATCH 4.6 MG TRANSDERM (09:37)
[2025-06-30] MEDS: NON-FORMULARY ITEM 1 UNIT TOPICAL (09:48)
--- NOTE | 2025-06-30 11:19 | W.PN.HOSP.TC ---
Today's Communication/Plan
-
medically stable for d/c - CM aware
cont Abx IV while inpatient
Assessment / Plan
Assessment / Plan
70yo F with PMHx of PArkinsons, anxiety, osteoporosis, orthostatic hypotension, recurrent UTI, moodd/o, dementia brought with worsening dementia, concernign for UTI, Ucx grew pansensitive E.coli and HUEY 2/2 dehydrationPT/OT recommended STR. Patient
resides in [facility].
A/P:
#Sepsis on admisson (encephalopathy and HUEY) 2/2 UTI
E.coli in Ucx
Ceftriaxone to Cefuroxime upon d/c
#Acute metabolic/septic encephalopathy on dementia, unspecified
Resident of [facility] care unit
Mentation seems to be on baseline
#Parkinsons disease with hallucinations
#Orthostatic hypotension 2/2 parkinsons dysautonomia
cont home meds
#Ambulatory dysfunction
PT/OT recommended STR
#HUEY on CKD stage 3a
most liekly 2/2 dehydration
resolved with IVF
#Anemia, chonic
no overt bleeding
Brown stool
outpatient anemia w/u
#Hyperkalemia
#Hypercalcemia
2/2 dehydration
resolved
#Mild Alk.phos elevation
no RUQ pain, most likely bone origin
#GERD
#Recurrent constipation
#Mood/o
#Osteoporosis
cont home meds
DVT ppx heparin
DNR/DNI
I have spent at least 58min reviewing hcart, test results, communication with consuoltants and providing direct patient care
Anticipated Discharge: Within 24 hours
Subjective/Interval History
-
Date of Service: June 30, 2025
Objective Data
-
Vital Signs:
Vital Signs
Temp Pulse Resp BP Pulse Ox
98.0 F 66 18 100/46 97
06/30/25 07:00 06/30/25 07:00 06/30/25 07:00 06/30/25 07:00 06/30/25 07:00
I&O
06/29/25 06/30/25 07/01/25
06:59 06:59 06:59
Intake Total 500 / 500 1430 / 1430
Balance 500 / 500 1430 / 1430
Review of Systems
-
History Source: Patient
All other systems: Reviewed and negative
Physical Exam
-
General: No Apparent Distress
HEENT: Normocephalic
Respiratory: Clear to Auscultation
GI: Soft, Nontender and Nondistended
Neuro: Awake and Alert
Psych: Calm and Apparent Dementia
[2025-06-30 11:45] VITALS: BP 106/59; BP 76/42; BP 85/57
[2025-06-30 11:48] VITALS: BP 106/59; BP 76/42; BP 85/57
--- NOTE | 2025-06-30 12:44 | W.DCSUMMARY ---
Discharge Summary
Discharge Data
Date of Admission: 06/25/25
Date of Discharge: 06/30/25
-
Pending Results: No
Hospital Course
70yo F with PMHx of Parkinson, anxiety, osteoporosis, orthostatic hypotension, recurrent UTI, moodd/o, dementia brought with worsening dementia, concernign for UTI, Ucx grew pansensitive E.coli and HUEY 2/2 dehydration. PT/OT recommended STR.
Patient resides in [facility].
I have spent at least 58min reviewing chart, test results, communication with consultants and providing direct patient care
Patient was managed for:
#Sepsis on admission (encephalopathy and HUEY) 2/2 UTI
#Acute metabolic/septic encephalopathy on dementia, unspecified
#Parkinson disease with hallucinations
#Orthostatic hypotension 2/2 Parkinson dysautonomia
#Ambulatory dysfunction
#HUEY on CKD stage 3a
#Anemia, chonic
#Hyperkalemia
#Hypercalcemia
#Mild Alk.phos elevation
#GERD
#Recurrent constipation
#Mood/o
#Osteoporosis
Discharge Plan
-
Patient Disposition: Fpc/SNF
Discharge Diagnosis/Procedures: UTI
Diet: Other diet
Additional Diets: Pureed
Activity: As tolerated
Referrals:
Phani Mullen Sr., MD [Family Provider, Family Practice]
Prescriptions:
New
cefuroxime axetil 500 mg tablet
500 mg PO Q12H Qty: 6 0RF
Continued
alendronate 70 mg tablet
70 mg PO ELIZALDE
carbidopa-levodopa 25-100 mg tablet
1 tab PO AC
amantadine HCl 100 mg Capsule
100 mg PO BID
melatonin 5 mg Tablet,Disintegrating
5 mg PO HS
famotidine 20 mg Tablet
20 mg PO DAILY Qty: 0 0RF
lamotrigine 150 mg tablet
150 mg PO BID
pantoprazole 40 mg tablet,delayed release (DR/EC)
40 mg PO DAILY
docusate sodium 100 mg Capsule
100 mg PO DAILY
escitalopram oxalate 10 mg tablet
10 mg PO DAILY
rivastigmine 4.6 mg/24 hour patch 24 hour
1 patch transdermal DAILY
polyethylene glycol 3350 17 gram Powder In Packet
17 g PO DAILYPRN PRN (Reason: constipation)
midodrine 5 mg Tablet
5 mg PO TID
therapeutic multivitamin Tablet
1 tab PO DAILY
Held
methenamine hippurate 1 gram Tablet
1 g PO BID
Hold Instructions: until completed cefuroxime, then restart
Discharge Orders:
Discharge Patient (As Directed); Ordered 06/30/25
Ordered By: Dominic Obando
Discharge Date and Time
Print Language: MACEDONIAN
--- NOTE | 2025-06-30 12:52 | CM ---
Patient seen at bedside in [address] [place] [address]. Patient for discharge to [facility] today. CM sent updated clinical and PASSR form via [employer]. Please call report to [phone]/fax [phone]. Patient will need to be transferred via ambulance due to dementia and
CM will call to patient family to review IMM form. CM will continue to follow for discharge planning needs.
Plan; transfer to [facility] today
--- NOTE | 2025-06-30 14:16 | PN.CDI ---
Addendum entered and electronically signed by Dominic Obando MD 07/01/25 07:13:
cannot further specify degree of malnutrition
Original Note:
CDI
- -
CDI:
Physician Documentation Request
Admit Date: 06/25/25 21:20
Dear Doctor Gisella,
RD notes and assessment 06/27 - ' Subcutaneous loss over rib cage- moderate. Muscle loss over temporal - moderate, clavicle - severe. CBW reflects a 10lbs loss or 8.8% change in wt-significant loss. Pt was observed with clavicle protrusion, temporal
depression and rib exposures. Pt meets ASPEN and AND criteria for severe protein calorie malnutrition of chronic illness with fat and muscle wasting, wt loss. '
Based on the above information and your assessment, which of the following most accurately represents the patient's nutritional status?
Severe Malnutrition
Other (please specify)
[place] Criteria ([employer] 2017)
2 or more criteria must be present for either
non severe or severe malnutrition
Note that the criteria differs related to the
presence of an acute or chronic illness
Acute Illness Chronic Illness
Energy Intake Non Severe: <75% for >7 days Non Severe: <75% for >1 month
Severe: <50% for >5 days Severe: <75% for >1 month
Weight Loss Non Severe: 1-2% over 1 week Non Severe: 5% over 1 month
5% over 1 month 7.5% over 3 months
7.5% over 3 months 10% over 6 months
1 year N/A 20% over 1 year
Severe: >2% over 1 week Severe: >5% over 1 month
>5% over 1 month >7.5% over 3 months
>7.5% over 3 months >10% over 6 months
1 year N/A >20% over 1 year
Body Fat Non Severe: Mild Decrease Non Severe: Mild Loss
Severe: Moderate Decrease Severe: Severe Loss
Muscle Mass Non Severe: Mild Decrease Non Severe: Mild Loss
Severe: Moderate Decrease Severe: Severe Loss
Fluid Accumulation Non Severe: Mild Accumulation Non Severe: Mild Accumulation
Severe: Moderate to severe Severe: Moderate to severe
accumulation accumulation
Reduced Harnessmaker Strength Non Severe: N/A Non Severe: N/A
Severe: Measurably reduced Severe: Measurably reduced
Use of terms such as suspected, likely, concern for, or probable (associated with a specific diagnosis that is being evaluated, monitored, or treated as if it exists) are acceptable and can be coded in the inpatient setting, when documented at the
time of discharge.
Thank you,
Ludy Ramos RN, BSN
CDI Specialist
tiger text
Please use your independent medical judgment in providing your response.
[2025-06-30 15:30] VITALS: BP 130/65
== END 2025-06-30 18:30 | DRG 871 ==
LOC: 2 NORTH 21:20
PROVIDERS: Emergency Medicine; Hospitalist; Physician Assistant Medical; ADMITTING PHYSICIAN Hospitalist; ATTENDING PHYSICIAN Internal Medicine; EMERGENCY PHYSICIAN Emergency Medicine; FAMILY PHYSICIAN Family Medicine
DX: A41.51 Sepsis due to Escherichia coli [E. coli] (principal); G92.8 Other toxic encephalopathy; N17.9 Acute kidney failure, unspecified; N39.0 Urinary tract infection, site not specified; F02.82 Dementia in other diseases classified elsewhere, unspecified severity, with psychotic disturbance; F02.84 Dementia in other diseases classified elsewhere, unspecified severity, with anxiety; F02.83 Dementia in other diseases classified elsewhere, unspecified severity, with mood disturbance; R64 Cachexia; Z68.1 Body mass index [BMI] 19.9 or less, adult; N13.70 Vesicoureteral-reflux, unspecified; I95.1 Orthostatic hypotension; G20.A1 Parkinson's disease without dyskinesia, without mention of fluctuations; M81.0 Age-related osteoporosis without current pathological fracture; R65.20 Severe sepsis without septic shock; E87.5 Hyperkalemia; Z66 Do not resuscitate; F32.A Depression, unspecified; N18.31 Chronic kidney disease, stage 3a; D63.1 Anemia in chronic kidney disease; E83.52 Hypercalcemia; K21.9 Gastro-esophageal reflux disease without esophagitis; K59.00 Constipation, unspecified; E86.0 Dehydration; R79.89 Other specified abnormal findings of blood chemistry; Z87.891 Personal history of nicotine dependence; Z11.52 Encounter for screening for COVID-19; Z85.51 Personal history of malignant neoplasm of bladder; Z87.440 Personal history of urinary (tract) infections
CPT/HCPCS: 70450; 71045; 80048; 80053; 81003; 81015; 85025; 85027; 86803; 87040; 87077; 87086; 87186; 87340; 87389; 87502; 87811; 92526; 92610; 93005; 97163; 97167; 97530

== ENCOUNTER → 2025-07-02 10:32 | Outpatient (REF) | payer OTHER, MEDICARE, SELFPAY ==
[2025-07-02 12:46] LABS: Hematocrit 30.1 % (37.0-47.0); Hemoglobin 9.7 g/dL (12.0-16.0); Mean Corp Hgb Conc. 32.2 g/dL (33.0-37.0); Mean Corpuscular Volume 89.1 fL (81.0-99.0); Nucleated Red Blood Cells % 0 %; Platelet Count 248 10^3/uL (130-400); Red Cell Dist. Width 17.9 % (11.5-14.5)
[2025-07-02 12:54] LABS: Blood Urea Nitrogen 27 mg/dl (7-17); Calcium 9.3 mg/dl (8.4-10.2); Carbon Dioxide 25 mmol/L (22-30); Chloride 107 mmol/L (98-107); Glucose 102 mg/dl (70-99); Potassium 4.3 mmol/L (3.5-5.1); Sodium 137 mmol/L (135-145); eGFR 54.06
== END ==
LOC: OLABP 10:32
PROVIDERS: ATTENDING PHYSICIAN Family Medicine
DX: G93.41 Metabolic encephalopathy (principal); A41.51 Sepsis due to Escherichia coli [E. coli]; G20.A1 Parkinson's disease without dyskinesia, without mention of fluctuations; F02.A3 Dementia in other diseases classified elsewhere, mild, with mood disturbance; I95.1 Orthostatic hypotension; K21.00 Gastro-esophageal reflux disease with esophagitis, without bleeding; M81.0 Age-related osteoporosis without current pathological fracture; N13.70 Vesicoureteral-reflux, unspecified; N17.9 Acute kidney failure, unspecified; N18.31 Chronic kidney disease, stage 3a; N39.0 Urinary tract infection, site not specified; R26.2 Difficulty in walking, not elsewhere classified; Z85.51 Personal history of malignant neoplasm of bladder
CPT/HCPCS: 80048; 85025